=== PATIENT | female | born 1955 | race Caucasian/White ===

== ENCOUNTER 2020-05-28 12:14 | Outpatient (REF) | payer MEDICARE, SELFPAY ==
--- NOTE | 2020-05-28 12:46 | XR_ITS ---
EXAMINATION: XR SHOULDER, RIGHT CLINICAL INFORMATION: Right shoulder joint replacement COMPARISON: Previous x-ray August 2019 TECHNIQUE: Two views of the right shoulder. FINDINGS: There is a right shoulder replacement in satisfactory position. No acute fracture, dislocation or x-ray evidence of loosening is seen. Soft tissues are unremarkable. There are old right rib fractures. IMPRESSION: Satisfactory appearance of right shoulder replacement.
== END 2020-05-28 12:15 | disposition home or self-care (01) ==
LOC: HO.XRAY 12:14
PROVIDERS: PCP Internal Medicine; Referring Provider Internal Medicine; Visit Provider Orthopaedic Surgery
DX: Z96.611 Presence of right artificial shoulder joint; M54.16 Radiculopathy, lumbar region
CPT/HCPCS: 73030; 99213

== ENCOUNTER 2024-07-19 13:03 | Outpatient (AMB) | payer MEDICARE, SELFPAY ==
--- NOTE | 2024-07-19 13:10 | A.OFFVIS_ITS ---
Intake Visit Reasons: Left knee pain Intake Note: Rose is a 69 year old female who presents with complaints of intermittent left knee pain and giving way. The patient underwent bilateral total knee replacement surgeries approximately 10 years ago performed at [facility]. The patient states that several months ago she twisted her left knee. Since that time she has had intermittent symptoms of instability. She has been doing physical therapy exercises which seemed to aggravate her symptoms. She has tried Tylenol which gives her mild relief. She is not able to tolerate anti-inflammatory medicines because of renal disease. Allergies Iodinated Contrast Media [IV CONTRAST] Allergy (Severe, Verified 07/19/24 13:28) ANAPHYLAXIS sumatriptan [From IMITREX] Allergy (Severe, Verified 07/19/24 13:28) PT STATES CAUSED NM adhesive tape [ADHESIVE TAPE] Allergy (Intermediate, Verified 07/19/24 13:28) SKIN BLISTERS lisinopril [LISINOPRIL] Allergy (Mild, Verified 07/19/24 13:28) COUGH ciprofloxacin [CIPROFLOXACIN] Allergy (Unknown, Verified 07/19/24 13:28) RASH AND ITCHING 1st Relief [place] Allergy (Unknown, Uncoded 07/19/24 13:28) unknown Iodinated I 131 Albumin Allergy (Unknown, Uncoded 07/19/24 13:28) unknown Medication List - Last Reconciled 07/20/24 by Benny Boone MD albuterol sulfate 90 mcg/actuation 2 puffs inhalation Q4H PRN amoxicillin-pot clavulanate 875-125 mg 1 tab PO BID ascorbic acid (vitamin C) 1 g PO Q6H aspirin (Adult Low Dose Aspirin) 81 mg PO DAILY atorvastatin 20 mg PO DAILY blood sugar diagnostic ([employer] Verio test strips) As directed bupropion HCl 125 mg PO QAM calcitriol 0.25 mcg PO DAILY cholecalciferol (vitamin D3) 25 mcg PO DAILY furosemide 20 mg PO DAILY PRN gabapentin mg PO BID hydroxyzine HCl 25 mg PO TID PRN lancets ([employer] Delica Plus Lancet) As directed latanoprost 0.005% 1 drp ophthalmic (eye) BEDTIME levothyroxine mcg PO metoprolol succinate ER 50 mg PO DAILY nystatin topical QID PRN omeprazole 20 mg PO DAILY oxycodone 2.5 mg PO BID PRN trazodone 100 mg PO BEDTIME vibegron (Gem[place]a) 75 mg PO DAILY PFSH Medical History (Updated 07/15/24 @ 10:45 by Benny Boone MD) Lumbar radiculopathy Surgical History (Updated 05/27/20 @ 19:55 by Tushar Antony MD) Status post replacement of right shoulder joint Social History Alcohol intake: never Patient Tobacco Use Status: Never used Tobacco Current occupational status: employed and retired Physical Exam Const Other: Well-nourished well-developed very friendly female awake alert and oriented x3 in no acute distress Extrem Other: Bilateral lower extremity examination shows good capillary refill, no skin lesions noted, normal sensation light touch Left knee examination shows that the surgical incision is well healed, no erythema, full active extension and flexion to 115 degrees, no instability mild tenderness along her medial tibial plateau Results Reviewed Results Reviewed: X-rays of the patient's left knee show a total knee arthroplasty in good position with no obvious signs of loosening Assessment & Plan Assessment & Plan (1) Left knee pain: Code(s): M25.562 - Pain in left knee Category: Medical Plan Ms. Noyola presents with left knee pain and symptoms of instability possibly due to aseptic loosening of her left total knee arthroplasty. Thus, I will send the patient for a CT scan of her left knee for further evaluation. I will contact her by phone once the CT scan results are available. She will continue with her activity modifications in the meantime. Feel free to call me at any time should questions regarding her orthopedic management arise. I spent 21 minutes in reviewing the patient's records and imaging studies, seeing the patient and documenting in the medical record. Orders: Orders XR knee LT 3V 07/19/24 M25.562 - Pain in left knee CT knee LT wo IV con Today M25.562 - Pain in left knee Coding Level of Care Code Est Pt Level 3 (89659) Complex EM visit Add On G2211 Diagnoses Left knee pain M25.562
--- OUTSIDE RECORDS SUMMARY | 2024-07-20 21:22 | XMS_ITS ---
Author Name [facility] Organization Unknown History of Medication Use Medication Directions Dispensed Refills Start Date End Date [facility] albuterol sulfate HFA 90 mcg/actuation aerosol inhaler INHALE 2 PUFFS INTO THE LUNGS EVERY 4 HOURS NEEDED FOR COUGH FOR SHORTNESS OF BREATH OR WHEEZING 12/28/2022 active gabapentin 100 mg capsule TAKE ONE CAPSULE BY MOUTH AT BEDTIME 12/28/2022 active fluoxetine 10 mg capsule TAKE ONE CAPSULE BY MOUTH EVERY DAY 12/28/2022 active tolterodine ER 4 mg capsule,extended release 24 hr TAKE ONE CAPSULE BY MOUTH EVERY DAY 12/28/2022 active calcitriol 0.25 mcg capsule TAKE ONE CAPSULE BY MOUTH EVERY DAY 12/28/2022 active Senna Plus 8.6 mg-50 mg tablet TAKE TWO TABLETS BY MOUTH EVERY EVENING 12/28/2022 active diazepam 5 mg tablet TAKE ONE TABLET BY MOUTH TWICE A DAY 12/28/2022 active fluoxetine 20 mg capsule TAKE 1 CAPSULE BY MOUTH DAILY DIRECTED 12/28/2022 active oxycodone 5 mg tablet TAKE ONE TABLET BY MOUTH EVERY DAY NEEDED FOR SEVERE PAIN 12/28/2022 active hydroxyzine HCl 10 mg tablet TAKE ONE TABLET BY MOUTH TWICE A DAY NEEDED FOR ANXIETY 12/28/2022 active fluoxetine 20 mg capsule TAKE 1 CAPSULE BY MOUTH DAILY DIRECTED 12/28/2022 active atorvastatin 20 mg tablet TAKE ONE TABLET BY MOUTH EVERY DAY 12/28/2022 active hydromorphone 2 mg tablet TAKE 1 TABLET BY MOUTH EVERY 4 HOURS NEEDED 12/28/2022 active levothyroxine 75 mcg tablet TAKE ONE TABLET BY MOUTH EVERY DAY 12/28/2022 active enoxaparin 40 mg/0.4 mL subcutaneous syringe INJECT 40MG 0.4ML) SUBCUTANEOUSLY ONCE DAILY UNTIL INR IS 2 OR GREATER DIRECTED. 12/28/2022 active Jantoven 1 mg tablet TAKE 5 TABLETS BY MOUTH AT DINNER DAILY UNLESS OTHERWISE INSTRUCTED BY PHYSICIAN'S OFFICE. 12/28/2022 active Action [employer] Ultra Test strips USE TO CHECK BLOOD SUGAR ONCE DAILY 12/28/2022 active Vitamin D3 25 mcg (1,000 unit) capsule TAKE TWO CAPSULES BY MOUTH EVERY DAY 12/28/2022 active methocarbamol 750 mg tablet TAKE ONE TABLET BY MOUTH EVERY 6 HOURS NEEDED FOR MUSCLE SPASMS. 12/28/2022 active nitrofurantoin monohydrate/macrocry stals 100 mg capsule TAKE 1 CAPSULE BY MOUTH TWICE DAILY 12/28/2022 active latanoprost 0.005 % eye drops INSTILL 1 DROP INTO EACH EYE AT BEDTIME. 12/28/2022 active Nyamyc 100,000 unit/gram topical powder APPLY ON RASH FOUR TIMES A DAY FOR 1 WEEK NEEDED. 12/28/2022 active metoprolol succinate ER 50 mg tablet,extended release 24 hr TAKE ONE TABLET BY MOUTH EVERY DAY 12/28/2022 active amoxicillin 875 mg-potassium clavulanate 125 mg tablet TAKE 1 TABLET BY MOUTH TWICE DAILY FOR 7 DAYS 12/28/2022 active hydroxyzine pamoate 25 mg capsule TAKE ONE CAPSULE BY MOUTH THREE TIMES DAILY NEEDED FOR ANXIETY 12/28/2022 active omeprazole 20 mg capsule,delayed release TAKE ONE CAPSULE BY MOUTH EVERY DAY 12/28/2022 active tolterodine ER 2 mg capsule,extended release 24 hr 12/28/2022 active cefpodoxime 100 mg tablet TAKE ONE TABLET BY MOUTH TWICE A DAY FOR 10 DAYS 12/28/2022 active Problems Problem Status Onset Date Problem Type Date of Resoluti on Source Pain of left knee joint active 2022-12-26 ProblemAct [facility]
--- OUTSIDE RECORDS SUMMARY | 2024-07-20 21:23 | XMS_ITS | Clinical Summary ---
Author Organization Unknown Care Team Providers Care Course Instructor Name Role Phone JÚNIOR OLEA, HEMANT Unavailable Unavailable ABBI RN, CARLEY Unavailable Unavailable SHARMIN PT, VJ Unavailable Unavailable SPAALEX OT, SALAZAR Unavailable Unavailable Payers Payer Name Policy Type Policy Number Effective Date Expira tion Date [facility] [email or web address] [id number] Problems Condition Name Condition Details Condition Category Status Onset Date Resolution Date Last Treatment Date Treating Clinician Comments AFTERCARE FOLLOWING JOINT REPLACEMENT SURGERY Active 2021-08 00:00: 00 PRESENCE OF LEFT ARTIFICIAL KNEE JOINT Active 2021-08 00:00: 00 URINARY TRACT INFECTION, SITE NOT SPECIFIED Active 2021-08 00:00: 00 CHRONIC PAIN SYNDROME Active 08-10 00:00: 00 ESSENTIAL (PRIMARY) HYPERTENSION Active 2021-08 00:00: 00 ATHSCL HEART DISEASE OF [place] CORONARY ARTERY W/O ANG PCTRS Active 08-10 00:00: 00 TAKOTSUBO SYNDROME Active 08-10 00:00: 00 HYPOMAGNESEM IA Active 08-10 00:00: 00 HYPOTHYROIDI SM, UNSPECIFIED Active 08-10 00:00: 00 RETENTION OF URINE, UNSPECIFIED Active 08-10 00:00: 00 DEPRESSION, UNSPECIFIED Active 08-10 00:00: 00 ANXIETY DISORDER, UNSPECIFIED Active 08-10 00:00: 00 HYPERLIPIDEM IA, UNSPECIFIED Active 08-10 00:00: 00 ANEMIA, UNSPECIFIED Active 08-10 00:00: 00 PRESENCE OF RIGHT ARTIFICIAL HIP JOINT Active 08-10 00:00: 00 MORBID (SEVERE) OBESITY DUE TO EXCESS CALORIES Active 08-10 00:00: 00 BODY MASS INDEX [BMI]40.0-44 .9, ADULT Active 08-10 00:00: 00 PRESENCE OF RIGHT ARTIFICIAL SHOULDER JOINT Active 08-10 00:00: 00 PRESENCE OF RIGHT ARTIFICIAL KNEE JOINT Active 02-22 00:00: 00 Allergies, Adverse Reactions, Alerts Allergy Name Allergy Type Status Severity Reaction(s) Onset Date Inactive Date Treating Clinician Comments NSAIDS Propensity to adverse reactions Active 2021-08 09:02: 16 IODINE AND IODIDE CONTAINING PRODUC Propensity to adverse reactions Active 2021-08 09:02: 26 A SULFAMETHOXA ZOLE Propensity to adverse reactions Active 2021-08 09:02: 41 TRIMETHOPRIM Propensity to adverse reactions Active 2021-08 09:02: 51 CIPROFLAXICI N Propensity to adverse reactions Active 2021-08 09:03: 01 ADHESIVE TAPE Propensity to adverse reactions Active 2021-08 09:03: 09 LISINOPRIL Propensity to adverse reactions Active 2021-08 09:03: 19 SUMATRIPTAN Propensity to adverse reactions Active 2021-08 09:03: 38 Medications Ordered Medication Name Filled Medication Name Start Date Stop Date Current Medication? Ordering Clinician Indication Dosage Frequency Signature (SIG) Comments Components cefpodoxime 100 mg tablet 2021-08 00:00: 00 06-20 23:59 :00 No [id number] UTI 1 tablet 2 TIMES DAILY 1 tablet 2 TIMES DAILY (route: oral) Med Classific ation: Anti-Infe ctive Agents enoxaparin 40 mg/0.4 mL subcutaneou s syringe 2021-08 00:00: 00 06-23 23:59 :00 No [id number] PROPHYLACTI C DVT PREVENTION 40 mg DAILY 40 mg DAILY (route: subcutaneo us) Med Classific ation: Hematolog ical Agents Jantoven 1 mg tablet 2021-08 00:00: 00 06-19 23:59 :00 No [id number] DVT PROPHYLAXIS 5 tablet DAILY 5 tablet DAILY (route: oral) Med Classific ation: Hematolog ical Agents oxycodone 5 mg tablet 2021-08 00:00: 00 Yes [id number] PAIN 7-10 1-2 tablet EVERY 6 HOURS 1-2 tablet EVERY 6 HOURS (route: oral) Med Classific ation: Analgesic , Anti-infl ammatory or Antipyret ic calcitriol 0.25 mcg capsule 2021-08 00:00: 00 Yes [id number] SUPPLEMENT 1 capsule DAILY 1 capsule DAILY (route: oral) Med Classific ation: Electroly te Balance-N utritiona l Products omeprazole 20 mg capsule,del ayed release 2021-08 00:00: 00 Yes [id number] GERD 1 capsule DAILY 1 capsule DAILY (route: oral) Med Classific ation: Gastroint estinal Therapy Agents hydroxyzine pamoate 25 mg capsule 2021-08 00:00: 00 Yes [id number] ANXIETY 1 capsule 3 TIMES DAILY 1 capsule 3 TIMES DAILY (route: oral) Med Classific ation: Central Nervous System Agents fluoxetine 10 mg capsule 2021-08 017 00:00: 00 Yes [id number] DEPRESSION 1 capsule DAILY 1 capsule DAILY (route: oral) Med Classific ation: Central Nervous System Agents fluoxetine 20 mg capsule 2021-0812 00:00: 00 Yes [id number] DEPESSION 1 capsule DAILY 1 capsule DAILY (route: oral) Med Classific ation: Central Nervous System Agents metoprolol succinate ER 50 mg tablet,exte nded release 24 hr 2021-08 00:00: 00 Yes [id number] HTN 1 tablet DAILY 1 tablet DAILY (route: oral) Med Classific ation: Cardiovas cular Therapy Agents Nyamyc 100,000 unit/gram topical powder 2021-08 0 00:00: 00 06-12 00:00 :00 No [id number] Per instruc tions ON RASH FOUR TIMES A DAY FOR 1 WEEK NEEDED Per instructio ns ON RASH FOUR TIMES A DAY FOR 1 WEEK NEEDED (route: topical) Med Classific ation: Dermatolo gical OneTouch Ultra Test strips 2021-08 0-05 00:00: 00 06-12 00:00 :00 No [id number] Per instruc tions TO CHECK BLOOD SUGAR ONCE DAILY Per instructio ns TO CHECK BLOOD SUGAR ONCE DAILY (route: miscellane ous) Med Classific ation: Medical Supplies and Durable Medical Equipment (DME) Acetaminoph en Extra Strength 500 mg tablet 2021-08 00:00: 00 Yes [id number] PAIN 2 tablet 3 TIMES DAILY 2 tablet 3 TIMES DAILY (route: oral) Med Classific ation: Analgesic , Anti-infl ammatory or Antipyret ic aspirin 81 mg tablet,karel yed release 2021-08 00:00: 00 Yes [id number] HEART HEALTH 1 tablet DAILY 1 tablet DAILY (route: oral) Med Classific ation: Hematolog ical Agents atorvastati n 20 mg tablet 2021-08 00:00: 00 Yes [id number] CHOLESTEROL 1 tablet BEDTIME 1 tablet BEDTIME (route: oral) Med Classific ation: Cardiovas cular Therapy Agents biotin 5 mg tablet 2021-08 00:00: 00 Yes [id number] SUPPLEMENT 1 tablet DAILY 1 tablet DAILY (route: oral) Med Classific ation: Electroly te Balance-N utritiona l Products diazepam 5 mg tablet 2021-08 00:00: 00 Yes [id number] ANXIETY 1 tablet 2 TIMES DAILY 1 tablet 2 TIMES DAILY (route: oral) Med Classific ation: Central Nervous System Agents levothyroxi ne 75 mcg tablet 2021-08 00:00: 00 Yes [id number] HYPOTHYROID ISM 1 tablet DAILY 1 tablet DAILY (route: oral) Med Classific ation: Endocrine magnesium 400 mg (as magnesium oxide) tablet 2021-08 00:00: 00 Yes [id number] LOW MAGNESIUM 1 tablet 2 TIMES DAILY 1 tablet 2 TIMES DAILY (route: oral) Med Classific ation: Electroly te Balance-N utritiona l Products methocarbam ol 750 mg tablet 2021-08 00:00: 00 Yes [id number] SPASMS 1 tablet EVERY 6 HOURS 1 tablet EVERY 6 HOURS (route: oral) Med Classific ation: Locomotor System Multiple Vitamins tablet 2021-08 00:00: 00 Yes [id number] SUPPLEMENT 1 tablet DAILY 1 tablet DAILY (route: oral) Med Classific ation: Electroly te Balance-N utritiona l Products Senna Plus 8.6 mg-50 mg capsule 2021-08 00:00: 00 Yes [id number] PREVENT CONSTIPATIO N 2 capsule BEDTIME 2 capsule BEDTIME (route: oral) Med Classific ation: Gastroint estinal Therapy Agents Vitamin C 1,000 mg tablet 2021-08 00:00: 00 Yes [id number] SUPPLEMENT 1 tablet DAILY 1 tablet DAILY (route: oral) Med Classific ation: Electroly te Balance-N utritiona l Products Vitamin D3 50 mcg (2,000 unit) tablet 2021-08 00:00: 00 Yes [id number] DEFICIENCY 2 tablet DAILY 2 tablet DAILY (route: oral) Med Classific ation: Electroly te Balance-N utritiona l Products Xalatan 0.005 % eye drops 2021-08 00:00: 00 Yes [id number] GLAUCOMA 1 drops BEDTIME 1 drops BEDTIME (route: ophthalmic (eye)) Med Classific ation: Ophthalmi c Agents zinc 50 mg tablet 2021-08 00:00: 00 Yes [id number] SUPPLEMENT 1 tablet BEDTIME 1 tablet BEDTIME (route: oral) Med Classific ation: Electroly te Balance-N utritiona l Products warfarin 1 mg tablet 2021-08 00:00: 00 06-30 23:59 :00 No [id number] BLOOD THINNER 3 tablet DAILY 3 tablet DAILY (route: oral) Alternate Route: BY MOUTH. Med Classific ation: Hematolog ical Agents Lovenox 40 mg/0.4 mL subcutaneou s syringe 2021-08 00:00: 00 06-16 23:59 :00 No [id number] DVT PROPHULACT 40 mg DAILY 40 mg DAILY (route: subcutaneo us) Med Classific ation: Hematolog ical Agents Jantoven 1 mg tablet 2021-08 00:00: 00 Yes [id number] ANTICOAGULA TION 6 mg DAILY 6 mg DAILY (route: oral) Med Classific ation: Hematolog ical Agents warfarin 1 mg tablet 2021-08 00:00: 00 Yes [id number] blood thinner 4 tablet DAILY 4 tablet DAILY (route: oral) Med Classific ation: Hematolog ical Agents LEVOTHYROXI NE ORAL 02-19 00:00: 00 06-06 07:03 :00 No 100 mcg1 TABLET DAILY 100 mcg1 TABLET DAILY (route: ) Alternate Route: BY MOUTH. Med Classific ation: ENDOCRINE LEVOTHYROXI NE ORAL 02-19 00:00: 00 06-06 07:03 :00 No 100 mcg1 TABLET DAILY 100 mcg1 TABLET DAILY (route: ) Alternate Route: BY MOUTH. Med Classific ation: ENDOCRINE LEVOTHYROXI NE ORAL 02-22 00:00: 00 06-06 07:03 :00 No 88 mcg1 TABLET DAILY 88 mcg1 TABLET DAILY (route: ) Alternate Route: BY MOUTH. Med Classific ation: ENDOCRINE FLUOXETINE ORAL 2018-08 00:00: 00 06-06 07:01 :00 No 20 mg2 CAPSULE S EVERYDAY DIRECTED 20 mg2 CAPSULES EVERYDAY DIRECTED (route: ) Alternate Route: BY MOUTH. Med Classific ation: CENTRAL NERVOUS SYSTEM AGENTS OMEPRAZOLE ORAL 02-22 00:00: 00 06-06 07:03 :00 No 40 mg1 CAPSULE DAILY 40 mg1 CAPSULE DAILY (route: ) Alternate Route: BY MOUTH. Med Classific ation: GASTROINT ESTINAL THERAPY AGENTS PNEUMOVAX-2 3 INJECTION 04-08 00:00: 00 04-09 00:00 :00 No 25 mcg/0.5 mL 25 mcg/0.5 mL (route: ) Alternate Route: VACCINATI ON ADMINISTE RED BY . Med Classific ation: BIOLOGICA LS PNEUMOVAX-2 3 INJECTION 04-08 00:00: 00 04-09 00:00 :00 No 25 mcg/0.5 mL 25 mcg/0.5 mL (route: ) Alternate Route: VACCINATI ON ADMINISTE RED BY . Med Classific ation: BIOLOGICA LS DIAZEPAM ORAL 2018-08 00:00: 00 06-06 07:00 :00 No 5 mg1 TABLET TWO TIMES A DAY 5 mg1 TABLET TWO TIMES A DAY (route: ) Alternate Route: BY MOUTH. Med Classific ation: CENTRAL NERVOUS SYSTEM AGENTS HYDROXYZINE PAMOATE ORAL 2018-08 0-15 00:00: 00 06-06 07:02 :00 No 50 mg1 CAPSULE THREE TIMES A DAY NEEDED 50 mg1 CAPSULE THREE TIMES A DAY NEEDED (route: ) Alternate Route: BY MOUTH. Med Classific ation: CENTRAL NERVOUS SYSTEM AGENTS PROPRANOLOL ORAL 8-01 00:00: 00 06-06 07:04 :00 No 80 mg 80 mg (route: ) Med Classific ation: CARDIOVAS CULAR THERAPY AGENTS NYSTOPICAL TOPICAL 16 00:00: 00 03-19 00:00 :00 No 100,000 unit/gr amA SMALL AMOUNT 2 TO 3 TIMES DAILY 100,000 unit/gramA SMALL AMOUNT 2 TO 3 TIMES DAILY (route: ) Alternate Route: AFFECTED AREA . Med Classific ation: DERMATOLO GICAL NYSTOPICAL TOPICAL 02-22 00:00: 00 03-19 00:00 :00 No 100,000 unit/gr amA SMALL AMOUNT 2 TO 3 TIMES DAILY 100,000 unit/gramA SMALL AMOUNT 2 TO 3 TIMES DAILY (route: ) Alternate Route: AFFECTED AREA . Med Classific ation: DERMATOLO GICAL LATANOPROST OPHTHALMIC (EYE) 7-03 00:00: 00 06-06 07:02 :00 No 0.005 %1 DROP HS DIRECTED 0.005 %1 DROP HS DIRECTED (route: ) Alternate Route: IN BOTH EYES. Med Classific ation: OPHTHALMI C AGENTS LATANOPROST OPHTHALMIC (EYE) 2018-08 0-03 00:00: 00 06-06 07:02 :00 No 0.005 %1 DROP HS DIRECTED 0.005 %1 DROP HS DIRECTED (route: ) Alternate Route: IN BOTH EYES. Med Classific ation: OPHTHALMI C AGENTS LATANOPROST OPHTHALMIC (EYE) 7-03 00:00: 00 06-06 07:02 :00 No 0.005 %1 DROP HS DIRECTED 0.005 %1 DROP HS DIRECTED (route: ) Alternate Route: IN BOTH EYES. Med Classific ation: OPHTHALMI C AGENTS FREESTYLE LANCETS 2018-08 0-18 00:00: 00 06-06 07:01 :00 No 28 gauge DAILY DIRECTED 28 gauge DAILY DIRECTED (route: ) Med Classific ation: MEDICAL SUPPLIES AND DURABLE MEDICAL EQUIPMENT (DME) ONE TOUCH IN VITRO 2018-08 0-15 00:00: 00 06-06 07:04 :00 No DAILY DIRECTED DAILY DIRECTED (route: ) NITROFURANT OIN MONOHYDRATE /MACROCRYST ALS ORAL 8-05 00:00: 00 03-21 00:00 :00 No 100 mg1 CAPSULE TWO TIMES A DAY FOR 7 DAYS 100 mg1 CAPSULE TWO TIMES A DAY FOR 7 DAYS (route: ) Alternate Route: BY MOUTH . Med Classific ation: ANTI-INFE CTIVE AGENTS NITROFURANT OIN MONOHYDRATE /MACROCRYST ALS ORAL 805 00:00: 00 03-21 00:00 :00 No 100 mg1 CAPSULE TWO TIMES A DAY FOR 7 DAYS 100 mg1 CAPSULE TWO TIMES A DAY FOR 7 DAYS (route: ) Alternate Route: BY MOUTH . Med Classific ation: ANTI-INFE CTIVE AGENTS FREESTYLE FREEDOM 716 00:00: 00 03-24 00:00 :00 No DAILY DIRECTED DAILY DIRECTED (route: ) Med Classific ation: MEDICAL SUPPLIES AND DURABLE MEDICAL EQUIPMENT (DME) FREESTYLE FREEDOM 16 00:00: 00 03-24 00:00 :00 No DAILY DIRECTED DAILY DIRECTED (route: ) Med Classific ation: MEDICAL SUPPLIES AND DURABLE MEDICAL EQUIPMENT (DME) ONETOUCH VERIO METER 02-28 00:00: 00 03-30 00:00 :00 No DIRECTED DIRECTED (route: ) Med Classific ation: MEDICAL SUPPLIES AND DURABLE MEDICAL EQUIPMENT (DME) ONETOUCH VERIO METER 02-28 00:00: 00 03-30 00:00 :00 No DIRECTED DIRECTED (route: ) Med Classific ation: MEDICAL SUPPLIES AND DURABLE MEDICAL EQUIPMENT (DME) FLUAD (65 YR UP)(PF) INTRAMUSCUL AR 30 00:00: 00 04-09 00:00 :00 No 45 mcg (15 mcg x 3)/0.5 mL 45 mcg (15 mcg x 3)/0.5 mL (route: ) Alternate Route: VACCINATI ON ADMINISTE RED BY . Med Classific ation: CHOLO MURGUIA FLUAD (65 YR UP)(PF) INTRAMUSCUL AR 04-08 00:00: 00 04-09 00:00 :00 No 45 mcg (15 mcg x 3)/0.5 mL 45 mcg (15 mcg x 3)/0.5 mL (route: ) Alternate Route: VACCINATI ON ADMINISTE RED BY . Med Classific ation: CHOLO MURGUIA Vital Signs Vital Name Observation Time Observation Value Commen ts Temperature 2022-07-09 09:36:00.000 98.2 [degF] Temperature 2022-07-07 09:37:00.000 97.8 [degF] Temperature 2022-07-02 09:38:00.000 97.2 [degF] Temperature 2022-06-30 12:54:00.000 97.9 [degF] Temperature 2022-06-30 11:21:00.000 97.7 [degF] Temperature 2022-06-26 09:35:00.000 97.3 [degF] Temperature 2022-06-23 10:40:00.000 97.1 [degF] Temperature 2022-06-19 14:54:00.000 97 [degF] Temperature 2022-06-19 10:45:00.000 97.5 [degF] Temperature 2022-06-16 10:53:00.000 97.6 [degF] Temperature 2022-06-13 15:24:00.000 97.6 [degF] Temperature 2022-06-12 09:40:00.000 98.2 [degF] BMI (%) 2022-06-12 09:40:00.000 40 kg/m2 Height 2022-06-12 09:40:00.000 60 [in_us] Pulse 2022-07-09 09:36:00.000 72 /min Pulse 2022-07-07 09:37:00.000 64 /min Pulse 2022-07-02 09:38:00.000 76 /min Pulse 2022-06-30 12:54:00.000 82 /min Pulse 2022-06-30 11:21:00.000 68 /min Pulse 2022-06-26 09:35:00.000 91 /min Pulse 2022-06-23 10:40:00.000 75 /min Pulse 2022-06-19 14:54:00.000 69 /min Pulse 2022-06-19 10:45:00.000 74 /min Pulse 2022-06-16 10:53:00.000 81 /min Pulse 2022-06-13 15:24:00.000 88 /min Pulse 2022-06-12 09:40:00.000 73 /min O2 Saturation (%) 2022-07-02 09:38:00.000 98 % O2 Saturation (%) 2022-06-30 11:21:00.000 98 % O2 Saturation (%) 2022-06-26 09:35:00.000 98 % O2 Saturation (%) 2022-06-23 10:40:00.000 98 % O2 Saturation (%) 2022-06-19 15:50:00.000 98 % O2 Saturation (%) 2022-06-19 10:45:00.000 96 % O2 Saturation (%) 2022-06-12 09:43:00.000 95 % Respirations 2022-07-09 09:36:00.000 16 /min Respirations 2022-07-07 09:37:00.000 18 /min Respirations 2022-07-02 09:38:00.000 18 /min Respirations 2022-06-30 12:54:00.000 18 /min Respirations 2022-06-30 11:21:00.000 18 /min Respirations 2022-06-26 09:35:00.000 18 /min Respirations 2022-06-23 10:40:00.000 18 /min Respirations 2022-06-19 14:54:00.000 18 /min Respirations 2022-06-19 10:45:00.000 18 /min Respirations 2022-06-16 10:53:00.000 16 /min Respirations 2022-06-13 15:24:00.000 18 /min Respirations 2022-06-12 09:40:00.000 16 /min Weight (lbs) 2022-06-12 09:40:00.000 206 [lb_av] Systolic Blood Pressure 2022-07-09 09:36:00.000 110 mm [Hg] Systolic Blood Pressure 2022-07-07 09:37:00.000 122 mm [Hg] Systolic Blood Pressure 2022-07-02 09:38:00.000 120 mm [Hg] Systolic Blood Pressure 2022-06-30 12:54:00.000 124 mm [Hg] Systolic Blood Pressure 2022-06-30 11:21:00.000 128 mm [Hg] Systolic Blood Pressure 2022-06-26 09:35:00.000 122 mm [Hg] Systolic Blood Pressure 2022-06-23 10:40:00.000 132 mm [Hg] Systolic Blood Pressure 2022-06-19 10:45:00.000 120 mm [Hg] Systolic Blood Pressure 2022-06-16 10:53:00.000 124 mm [Hg] Systolic Blood Pressure 2022-06-13 15:24:00.000 122 mm [Hg] Systolic Blood Pressure 2022-06-12 09:40:00.000 118 mm [Hg] Diastolic Blood Pressure 2022-07-09 09:36:00.000 72 mm [Hg] Diastolic Blood Pressure 2022-07-07 09:37:00.000 68 mm [Hg] Diastolic Blood Pressure 2022-07-02 09:38:00.000 60 mm [Hg] Diastolic Blood Pressure 2022-06-30 12:54:00.000 66 mm [Hg] Diastolic Blood Pressure 2022-06-30 11:21:00.000 70 mm [Hg] Diastolic Blood Pressure 2022-06-26 09:35:00.000 80 mm [Hg] Diastolic Blood Pressure 2022-06-23 10:40:00.000 76 mm [Hg] Diastolic Blood Pressure 2022-06-19 10:45:00.000 64 mm [Hg] Diastolic Blood Pressure 2022-06-16 10:53:00.000 64 mm [Hg] Diastolic Blood Pressure 2022-06-13 15:24:00.000 76 mm [Hg] Diastolic Blood Pressure 2022-06-12 09:40:00.000 74 mm [Hg] Plan of Treatment Planned Activity Planned Date Details Comments Future Scheduled Test PHYSICAL T HERAPIST TO EVALUATE FOR STRENGTHENING [code = PHYSICAL THERAPIST TO EVALUATE FOR STRENGTHENING ] Future Scheduled Test OCCUPATION AL THERAPIST TO EVALUATE FOR BR SAFETY [code = OCCUPATIONAL THERAPIST TO EVALUATE FOR BR SAFETY] Future Scheduled Test MEDICATION MANAGEMENT; SKILLED NURSE TO REVIEW MEDICATIONS FOR INTERACTIONS, EFFECTIVENESS OF DRUG THERAPY, AND SIGNS/SYMPTOMS OF ADVERSE REACTIONS. MAY INSTRUCT AND REINFORCE MEDICATION TEACHING RELATED TO THE USE OF MEDICATIONS, DOSAGE, FREQUENCY, PURPOSE, SIDE EFFECTS, AND TO REPORT COMPLICATIONS. [code = MEDICATION MANAGEMENT; SKILLED NURSE TO REVIEW MEDICATIONS FOR INTERACTIONS, EFFECTIVENESS OF DRUG THERAPY, AND SIGNS/SYMPTOMS OF ADVERSE REACTIONS. MAY INSTRUCT AND REINFORCE MEDICATION TEACHING RELATED TO THE USE OF MEDICATIONS, DOSAGE, FREQUENCY, PURPOSE, SIDE EFFECTS, AND TO REPORT COMPLICATIONS.] Future Scheduled Test ANTICOAGUL ATION MANAGEMENT; SKILLED NURSE TO ASSESS, TEACH, AND MONITOR EFFECTIVENESS OF ANTICOAGULATION THERAPY. SKILLED NURSE TO INSTRUCT ON SIGNS AND SYMPTOMS OF BLEEDING/ADVERSE REACTIONS TO REPORT TO PHYSICIAN. [code = ANTICOAGULATION MANAGEMENT; SKILLED NURSE TO ASSESS, TEACH, AND MONITOR EFFECTIVENESS OF ANTICOAGULATION THERAPY. SKILLED NURSE TO INSTRUCT ON SIGNS AND SYMPTOMS OF BLEEDING/ADVERSE REACTIONS TO REPORT TO PHYSICIAN. ] Future Scheduled Test FALL REDUC TION MANAGEMENT; NURSING TO PROVIDE SKILLED ASSESSMENT, EDUCATION, AND INTERVENTION TO IDENTIFY FALL RISK FACTORS SUCH MEDICATIONS THAT MAY CAUSE DIZZINESS, CHRONIC DISEASES, PSYCHOLOGICAL FACTORS, AND EMPOWER/EDUCATE PATIENT/CAREGIVER TO MINIMIZE FALL RISK. [code = FALL REDUCTION MANAGEMENT; NURSING TO PROVIDE SKILLED ASSESSMENT, EDUCATION, AND INTERVENTION TO IDENTIFY FALL RISK FACTORS SUCH MEDICATIONS THAT MAY CAUSE DIZZINESS, CHRONIC DISEASES, PSYCHOLOGICAL FACTORS, AND EMPOWER/EDUCATE PATIENT/CAREGIVER TO MINIMIZE FALL RISK.] Future Scheduled Test GENITOURIN ZUNILDA MANAGEMENT; SKILLED NURSE TO ASSESS AND TEACH RELATED TO ALTERED GENITOURINARY STATUS TO MINIMIZE COMPLICATIONS AND REDUCE HOSPITALIZATION. [code = GENITOURINARY MANAGEMENT; SKILLED NURSE TO ASSESS AND TEACH RELATED TO ALTERED GENITOURINARY STATUS TO MINIMIZE COMPLICATIONS AND REDUCE HOSPITALIZATION.] Future Scheduled Test URINARY TR ACT INFECTION MANAGEMENT; SKILLED NURSE TO PROVIDE SKILLED TEACHING AND SELF- CARE MANAGEMENT RELATED TO UTI TO MINIMIZE COMPLICATIONS AND REDUCE THE RISK OF HOSPITALIZATION. [code = URINARY TRACT INFECTION MANAGEMENT; SKILLED NURSE TO PROVIDE SKILLED TEACHING AND SELF- CARE MANAGEMENT RELATED TO UTI TO MINIMIZE COMPLICATIONS AND REDUCE THE RISK OF HOSPITALIZATION.] Future Scheduled Test SKILLED NU RSE TO ASSESS, EVALUATE, AND DEVELOP AN INDIVIDUALIZED PLAN OF CARE. AGENCY MAY ACCEPT ORDERS FROM CONSULTING PHYSICIANS RUARK TO OBSERVE/ASSESS RISK FOR FALLS AND INSTRUCT IN FALL PREVENTION, HOME SAFETY, MEDICATION MANAGEMENT, INFECTION PREVENTION, AND NUTRITION MANAGEMENT. SN MAY PERFORM O2 SATURATION LEVEL ON ADMISSION AND PRN TO ASSESS PATIENT, WITH NOTIFICATION TO THE PHYSICIAN IF SATURATION IS 90% IN THE ABSENCE OF MORE SPECIFIC PARAMETERS FROM THE PHYSICIAN. AGENCY MAY PERFORM A RESUMPTION OF CARE VISIT FOLLOWING ANY HOSPITAL ADMISSION. SKILLED NURSE TO ASSESS/EVALUATE CO-MORBID CONDITIONS AND ANY NEW CONDITIONS THAT PRESENT THEMSELVES DURING THIS EPISODE TO IDENTIFY CHANGES AND INTERVENE TO MINIMIZE COMPLICATIONS. [code = SKILLED NURSE TO ASSESS, EVALUATE, AND DEVELOP AN INDIVIDUALIZED PLAN OF CARE. AGENCY MAY ACCEPT ORDERS FROM CONSULTING PHYSICIANS RUARK SN TO OBSERVE/ASSESS RISK FOR FALLS AND INSTRUCT IN FALL PREVENTION, HOME SAFETY, MEDICATION MANAGEMENT, INFECTION PREVENTION, AND NUTRITION MANAGEMENT. SN MAY PERFORM O2 SATURATION LEVEL ON ADMISSION AND PRN TO ASSESS PATIENT, WITH NOTIFICATION TO THE PHYSICIAN IF SATURATION IS 90% IN THE ABSENCE OF MORE SPECIFIC PARAMETERS FROM THE PHYSICIAN. AGENCY MAY PERFORM A RESUMPTION OF CARE VISIT FOLLOWING ANY HOSPITAL ADMISSION. SKILLED NURSE TO ASSESS/EVALUATE CO-MORBID CONDITIONS AND ANY NEW CONDITIONS THAT PRESENT THEMSELVES DURING THIS EPISODE TO IDENTIFY CHANGES AND INTERVENE TO MINIMIZE COMPLICATIONS.] Future Scheduled Test PT/INR Thu; SKILLED NURSE TO PERFORM PT/INR VIA VENIPUNCTURE OR COAGUCHECK EVERY THURSDAY AND THURSDAY UNTIL INR 2.0. TTHEN CALL ORTHO OFFICE FOR FURTHER ORDERS [code = PT/INR MONITORING; SKILLED NURSE TO PERFORM PT/INR VIA VENIPUNCTURE OR COAGUCHECK EVERY THURSDAY AND THURSDAY UNTIL INR 2.0. TTHEN CALL ORTHO OFFICE FOR FURTHER ORDERS] Future Scheduled Test PAIN MANAG EMENT; SKILLED NURSE TO OBSERVE, ASSESS, AND PROVIDE EDUCATION ON PAIN MANAGEMENT TECHNIQUES. [code = PAIN MANAGEMENT; SKILLED NURSE TO OBSERVE, ASSESS, AND PROVIDE EDUCATION ON PAIN MANAGEMENT TECHNIQUES.] Future Scheduled Test PT WITH NO N OBSERVABLE INCISION. WILL BE REMOVED AT SURGEON OFFICE 06/24 [code = PT WITH NON OBSERVABLE INCISION. WILL BE REMOVED AT SURGEON OFFICE 06/24] Future Scheduled Test CARDIOVASC ULAR SYSTEM; SKILLED NURSE TO ASSESS AND TEACH RELATED TO ALTERED CARDIOVASCULAR STATUS TO MINIMIZE COMPLICATIONS AND REDUCE HOSPITALIZATION. [code = CARDIOVASCULAR SYSTEM; SKILLED NURSE TO ASSESS AND TEACH RELATED TO ALTERED CARDIOVASCULAR STATUS TO MINIMIZE COMPLICATIONS AND REDUCE HOSPITALIZATION.] Future Scheduled Test HYPERTENSI ON MANAGEMENT; SKILLED NURSE TO ASSESS/TEACH WARNING SIGNS AND SYMPTOMS TO AVOID HOSPITALIZATION. [code = HYPERTENSION MANAGEMENT; SKILLED NURSE TO ASSESS/TEACH WARNING SIGNS AND SYMPTOMS TO AVOID HOSPITALIZATION.] Future Scheduled Test SKIN INTEG RITY - SN OBSERVE AND ASSESS INTEGUMENTARY STATUS TO IDENTIFY CHANGES AND INTERVENE TO MINIMIZE COMPLICATIONS. PROVIDE SKILLED TEACHING OF GENERAL WOUND AND SKIN CARE AND PREVENTION RELATED TO POTENTIAL FOR OR ACTUAL ALTERED SKIN INTEGRITY [code = SKIN INTEGRITY - SN OBSERVE AND ASSESS INTEGUMENTARY STATUS TO IDENTIFY CHANGES AND INTERVENE TO MINIMIZE COMPLICATIONS. PROVIDE SKILLED TEACHING OF GENERAL WOUND AND SKIN CARE AND PREVENTION RELATED TO POTENTIAL FOR OR ACTUAL ALTERED SKIN INTEGRITY ] Future Scheduled Test AGENCY MAY PERFORM A RESUMPTION OF CARE VISIT FOLLOWING ANY HOSPITAL ADMISSION. PHYSICAL THERAPY TO EVALUATE, ASSESS AND MONITOR, PROVIDE SKILLED THERAPEUTIC INTERVENTION, ACTIVITY, EDUCATION, AND TRAINING TO ADDRESS: TRANSFER TRAINING (PT) GAIT TRAINING (PT) THERAPEUTIC EXERCISES (PT) STAIR TRAINING (PT) OXYGEN SATURATION (PT). NOTIFY MD IF 02SATS BELOW 90% AFTER 10 MIN OF REST. PAIN MANAGEMENT (PT) ORTHOPEDIC SURGICAL AFTERCARE (PT) MAY TEACH PATIENT APPLICATION OF CRYOTHERAPY FOR PAIN AND/OR SWELLING UP TO 20 MIN AT A TIME OVER INCISION/JOINT KNEE REPLACEMENT SELF-MANAGEMENT (PT) IDENTIFY FALL RISK FACTORS AND ESTABLISH HOME EXERCISE PROGRAM TO MINIMIZE FALL RISK. MAY TEACH THE PATIENT FLOOR RECOVERY WHEN CLINICALLY APPROPRIATE (PT) [code = AGENCY MAY PERFORM A RESUMPTION OF CARE VISIT FOLLOWING ANY HOSPITAL ADMISSION. PHYSICAL THERAPY TO EVALUATE, ASSESS AND MONITOR, PROVIDE SKILLED THERAPEUTIC INTERVENTION, ACTIVITY, EDUCATION, AND TRAINING TO ADDRESS: TRANSFER TRAINING (PT) GAIT TRAINING (PT) THERAPEUTIC EXERCISES (PT) STAIR TRAINING (PT) OXYGEN SATURATION (PT). NOTIFY MD IF 02SATS BELOW 90% AFTER 10 MIN OF REST. PAIN MANAGEMENT (PT) ORTHOPEDIC SURGICAL AFTERCARE (PT) MAY TEACH PATIENT APPLICATION OF CRYOTHERAPY FOR PAIN AND/OR SWELLING UP TO 20 MIN AT A TIME OVER INCISION/JOINT KNEE REPLACEMENT SELF-MANAGEMENT (PT) IDENTIFY FALL RISK FACTORS AND ESTABLISH HOME EXERCISE PROGRAM TO MINIMIZE FALL RISK. MAY TEACH THE PATIENT FLOOR RECOVERY WHEN CLINICALLY APPROPRIATE (PT)] Goal 2022-07-09 Patient Goal - T O WLAK WITHOUT PAIN OR WALKER Goal Provider Goal - Goal Provider Goal - Goal Provider Goal - PATIENT/CAREGIVER TO VERBALIZE, AND CONSISTENTLY DEMONSTRATE EFFECTIVE, SAFE MANAGEMENT OF MEDICATION INCLUDING KNOWLEDGE OF EFFECTIVENESS, POTENTIAL SIDE EFFECTS AND DRUG REACTIONS AND WHEN TO CONTACT THE APPROPRIATE CARE PROVIDER. PATIENT/CAREGIVER WILL BE ABLE TO VERBALIZE UNDERSTANDING OF MEDICATION REGIMEN AND ACCURATELY TAKE MEDICATIONS PRESCRIBED WITHOUT ADVERSE EFFECTS BY EOE Goal Provider Goal - INEFFECTIVE ANTICOAGULATION THERAPY WILL BE IDENTIFIED AND PROMPTLY REPORTED TO THE PHYSICIAN. PATIENT / CAREGIVER WILL VERBALIZE UNDERSTANDING OF MEASURES TO MAINTAIN EFFECTIVE ANTICOAGULATION THERAPY Goal Provider Goal - PATIENT/CAREGIVER ABLE TO IDENTIFY FALL RISK FACTORS AND IMPLEMENT STRATEGIES TO MINIMIZE FALL RISK. PATIENT/CAREGIVER WILL VERBALIZE/DEMONSTRATE AN ABILITY TO ADHERE TO FALL REDUCTION SELF MANAGEMENT AND LIFE-STYLE CHANGES AT DISCHARGE. PERSONAL GOAL(S) STATED BY PATIENT/CAREGIVER WILL BE MET BY EOE Goal Provider Goal - PATIENT / CAREGIVER WILL VERBALIZE/DEMONSTRATE UNDERSTANDING OF MEASURES TO MANAGE ALTERED GENITOURINARY STATUS BY END OF EPISODE. Goal Provider Goal - PATIENT/CAREGIVER WILL VERBALIZE/DEMONSTRATE UNDERSTANDING OF CARE AND MANAGEMENT OF URINARY TRACT INFECTION BY EOE Goal Provider Goal - A PLAN OF CARE WILL BE ESTABLISHED THAT MEETS THE PATIENTS NEEDS. PATIENT WILL DEMONSTRATE OXYGEN SATURATION WITHIN NORMAL LIMITS OR PATIENTS OPTIMAL LEVEL ESTABLISHED BY THE PHYSICIAN THROUGHOUT CARE. CHANGES TO CO-MORBID CONDITIONS AND ANY NEW CONDITIONS WILL BE IDENTIFIED AND REPORTED TO THE PHYSICIAN. Goal Provider Goal - PATIENT PT/INR WILL BE MAINTAINED AT A THERAPEUTIC LEVEL( 2-3)IDENTIFIED BY THE PHYSICIAN THROUGHOUT CARE. Goal Provider Goal - PATIENT / CAREGIVER WILL VERBALIZE / DEMONSTRATE UNDERSTANDING OF PAIN CONTROL MEASURES BY EOE Goal Provider Goal - PATIENT / CAREGIVER WILL VERBALIZE / DEMONSTRATE ABILITY TO PERFORM WOUND CARE. WOUND STATUS WILL IMPROVE EVIDENCED BY A DECREASE IN SIZE, DRAINAGE, ABSENCE OF INFECTION, AND DECREASED PAIN BY EOE Goal Provider Goal - PATIENT / CAREGIVER WILL VERBALIZE/DEMONSTRATE UNDERSTANDING OF MEASURES TO MANAGE ALTERED CARDIOVASCULAR STATUS BY EOE. Goal Provider Goal - PATIENT / CAREGIVER WILL VERBALIZE/DEMONSTRATE AN ABILITY TO ADHERE TO SELF-MANAGEMENT OF HTN TO MINIMIZE COMPLICATIONS AND AVOID HOSPITALIZATION BY END OF EPISODE. Goal Provider Goal - CHANGES IN SKIN INTEGRITY STATUS WILL BE IDENTIFIED AND REPORTED TO THE PHYSICIAN FOR PROMPT INTERVENTION. PATIENT / CAREGIVER WILL VERBALIZE/DEMONSTRATE ADEQUATE KNOWLEDGE OF INTEGUMENTARY STATUS AND APPROPRIATE MEASURES TO PROMOTE SKIN INTEGRITY AND PREVENT INJURY BY EOE Goal Provider Goal - PT STG: PATIENT WILL DEMONSTRATE IMPROVED TRANSFERS FROM SBA TO INDEPENDENT WITH UE ASSIST WITHIN 3 WEEKS PT STG: PATIENT WILL DEMONSTRATE FULLY UPRIGHT POSTURE, ADEQUATE STEP LENGTH, FOOT CLEARANCE AND CONSISTENT HEEL STRIKE BILATERALLY TO IMPROVE GAIT PATTERN WITHIN 3 WEEKS PT LTG: PATIENT WILL DEMONSTRATE IMPROVED AMBULATION FROM CGA TO INDEPENDENT WITH USE OF SILVER AND FURNITURE FOR SUPPORT WITHIN 5 WEEKS PT STG: PATIENT WILL DEMONSTRATE INDEPENDENCE WITH LOWER EXTREMITY HOME EXERCISE PROGRAM WITHIN 4 WEEKS PT LTG: PATIENT WILL DEMONSTRATE INCREASED STRENGTH OF LEFT LE FROM 2+/5 TO 4/5 WITHIN 5 WEEKS IN ORDER TO IMPROVE SAFETY AND STABILITY WITH GAIT AND STAIRS PT LTG: PATIENT WILL DEMONSTRATE INCREASED ROM OF LEFT KNEE FROM -6-75 DEGREES TO 0-120 DEGREES WITHIN 5 WEEKS IN ORDER TO IMPROVE TECHNIQUE WITH TRANSFERS, GAIT AND STAIR MOBILITY PT STG: PATIENT WILL DEMONSTRATE PROPER PACING AND SEQUENCING WITH STAIR MOBILITY WITHIN 3 WEEKS PT LTG: PATIENT WILL DEMONSTRATE IMPROVED ABILITY TO SAFELY NEGOTIATE STAIRS FROM MIN ASSIST TO INDEPENDENT WITH RAIL WITHIN 5 WEEKS PATIENT WILL MAINTAIN OXYGEN SATURATION WITHIN PHYSICIAN ORDERED PARAMETERS THROUGHOUT EPISODE OF CARE PT GOAL: PATIENT/CAREGIVER WILL VERBALIZE UNDERSTANDING OF PAIN MANAGEMENT BY DISCHARGE. PATIENT WILL DEMONSTRATE NORMAL HEALING FOLLOWING SURGERY WITH NO COMPLICATIONS BY DISCHARGE. PT GOAL: PATIENT WILL DEMONSTRATE OPTIMAL OUTCOMES, INCLUDING INCREASED ROM AND STRENGTH FOLLOWING TKA BY DISCHARGE. PATIENT/CAREGIVER WILL DEMONSTRATE ADHERENCE TO FALL REDUCTION SELF MANAGEMENT TO MINIMIZE FALL RISK BY DISCHARGE. Reason for Visit INDEPENDENT IN THE HOME Encounters Start Date/Time End Date/Time Encounter Type Admission Type Attending [facility] Care Department Encounter ID Discharge Date Discharge Status Discharge Condition Discharge Reason Percent Goals Met 2022-06-12 00:00:00 2022-07-09 00:00:00 Outpatient CARLEY BENITEZ [facility] [id number] 2022-07-09 00:00:00 DISCHARGE TO HOME OR SELF CARE INDEPENDEN T IN THE HOME HH ONLY - PER CLIENT REQUEST 87.88
== END 2024-07-19 13:41 | disposition home or self-care (01) ==
PROVIDERS: PCP Internal Medicine; Visit Provider Orthopaedic Surgery
DX: M25.562 Pain in left knee (principal)
CPT/HCPCS: 99213; G2211

== ENCOUNTER 2024-07-19 15:57 | Outpatient (REF) | payer MEDICARE, SELFPAY ==
--- NOTE | ~2024-07-19 | XR_ITS ---
EXAMINATION: XR LEFT KNEE CLINICAL INFORMATION: Pain in left knee M25.562. COMPARISON: None available TECHNIQUE: Three views of the left knee. FINDINGS: Total knee arthroplasty with usual position and alignment. Intact hardware. No evidence of acute periprosthetic fracture. No suspicious perihardware lucency is identified. No significant effusion. Vascular calcification. XR/XR knee LT 3V IMPRESSION: Status post total knee arthroplasty. No radiographic evidence to suggest hardware failure. Correlate with prior imaging. Further evaluation with bone scan as clinically indicated, if there is concern for a radiographically occult process. Study is assigned/presented to me for interpretation on Aug 25, 2024 Electronically signed by: Dominic Jaramillo MD 08/25/2024 02:09 PM [facility] DUKES
--- OUTSIDE RECORDS SUMMARY | 2024-07-21 03:07 | XMS_ITS | Clinical Summary ---
Author Organization Unknown Care Team Providers Care Vibration Technician Name Role Phone JÚNIOR OLEA, HEMANT Unavailable Unavailable ABBI RN, CARLEY Unavailable Unavailable SHARMIN PT, VJ Unavailable Unavailable SPAALEX OT, SALAZAR Unavailable Unavailable Payers Payer Name Policy Type Policy Number Effective Date Expira tion Date [facility].CYasminAUTH [id number] Problems Condition Name Condition Details Condition Category [...] 2021-08 00:00: 00 ATHSCL HEART DISEASE OF [place] CORONARY ARTERY W/O ANG PCTRS Active 08-10 [...] 2021-08 00:00: 00 06-20 23:59 :00 No [id number] UTI 1 tablet 2 TIMES DAILY 1 tablet 2 TIMES DAILY (route: oral) Med Classific ation: Anti-Infe ctive Agents enoxaparin 40 mg/0.4 mL subcutaneou s syringe 2021-08 00:00: 00 06-23 23:59 :00 No [id number] PROPHYLACTI C DVT PREVENTION 40 mg DAILY 40 mg DAILY (route: subcutaneo us) Med Classific ation: Hematolog ical Agents Jantoven 1 mg tablet 2021-08 00:00: 00 06-19 23:59 :00 No [id number] DVT PROPHYLAXIS 5 tablet DAILY 5 tablet DAILY (route: oral) Med Classific ation: Hematolog ical Agents oxycodone 5 mg tablet 2021-08 00:00: 00 Yes [id number] PAIN 7-10 1-2 tablet EVERY 6 HOURS 1-2 tablet EVERY 6 HOURS (route: oral) Med Classific ation: Analgesic , Anti-infl ammatory or Antipyret ic calcitriol 0.25 mcg capsule 2021-08 00:00: 00 Yes [id number] SUPPLEMENT 1 capsule DAILY 1 capsule DAILY (route: oral) Med Classific ation: Electroly te Balance-N utritiona l Products omeprazole 20 mg capsule,del ayed release 2021-08 00:00: 00 Yes [id number] GERD 1 capsule DAILY 1 capsule DAILY (route: oral) Med Classific ation: Gastroint estinal Therapy Agents hydroxyzine pamoate 25 mg capsule 2021-08 00:00: 00 Yes [id number] ANXIETY 1 capsule 3 TIMES DAILY 1 capsule 3 TIMES DAILY (route: oral) Med Classific ation: Central Nervous System Agents fluoxetine 10 mg capsule 2021-08 017 00:00: 00 Yes [id number] DEPRESSION 1 capsule DAILY 1 capsule DAILY (route: oral) Med Classific ation: Central Nervous System Agents fluoxetine 20 mg capsule 2021-0812 00:00: 00 Yes [id number] DEPESSION 1 capsule DAILY 1 capsule DAILY (route: oral) Med Classific ation: Central Nervous System Agents metoprolol succinate ER 50 mg tablet,exte nded release 24 hr 2021-08 00:00: 00 Yes [id number] HTN 1 tablet DAILY 1 tablet DAILY (route: oral) Med Classific ation: Cardiovas cular Therapy Agents Nyamyc 100,000 unit/gram topical powder 2021-08 0 00:00: 00 06-12 00:00 :00 No [id number] Per instruc tions ON RASH FOUR TIMES A DAY FOR 1 WEEK NEEDED Per instructio ns ON RASH FOUR TIMES A DAY FOR 1 WEEK NEEDED (route: topical) Med Classific ation: Dermatolo gical OneTouch Ultra Test strips 2021-08 0-05 00:00: 00 06-12 00:00 :00 No [id number] Per instruc tions TO CHECK BLOOD SUGAR ONCE DAILY Per instructio ns TO CHECK BLOOD SUGAR ONCE DAILY (route: miscellane ous) Med Classific ation: Medical Supplies and Durable Medical Equipment (DME) Acetaminoph en Extra Strength 500 mg tablet 2021-08 00:00: 00 Yes [id number] PAIN 2 tablet 3 TIMES DAILY 2 tablet 3 TIMES DAILY (route: oral) Med Classific ation: Analgesic , Anti-infl ammatory or Antipyret ic aspirin 81 mg tablet,karel yed release 2021-08 00:00: 00 Yes [id number] HEART HEALTH 1 tablet DAILY 1 tablet DAILY (route: oral) Med Classific ation: Hematolog ical Agents atorvastati n 20 mg tablet 2021-08 00:00: 00 Yes [id number] CHOLESTEROL 1 tablet BEDTIME 1 tablet BEDTIME (route: oral) Med Classific ation: Cardiovas cular Therapy Agents biotin 5 mg tablet 2021-08 00:00: 00 Yes [id number] SUPPLEMENT 1 tablet DAILY 1 tablet DAILY (route: oral) Med Classific ation: Electroly te Balance-N utritiona l Products diazepam 5 mg tablet 2021-08 00:00: 00 Yes [id number] ANXIETY 1 tablet 2 TIMES DAILY 1 tablet 2 TIMES DAILY (route: oral) Med Classific ation: Central Nervous System Agents levothyroxi ne 75 mcg tablet 2021-08 00:00: 00 Yes [id number] HYPOTHYROID ISM 1 tablet DAILY 1 tablet DAILY (route: oral) Med Classific ation: Endocrine magnesium 400 mg (as magnesium oxide) tablet 2021-08 00:00: 00 Yes [id number] LOW MAGNESIUM 1 tablet 2 TIMES DAILY 1 tablet 2 TIMES DAILY (route: oral) Med Classific ation: Electroly te Balance-N utritiona l Products methocarbam ol 750 mg tablet 2021-08 00:00: 00 Yes [id number] SPASMS 1 tablet EVERY 6 HOURS 1 tablet EVERY 6 HOURS (route: oral) Med Classific ation: Locomotor System Multiple Vitamins tablet 2021-08 00:00: 00 Yes [id number] SUPPLEMENT 1 tablet DAILY 1 tablet DAILY (route: oral) Med Classific ation: Electroly te Balance-N utritiona l Products Senna Plus 8.6 mg-50 mg capsule 2021-08 00:00: 00 Yes [id number] PREVENT CONSTIPATIO N 2 capsule BEDTIME 2 capsule BEDTIME (route: oral) Med Classific ation: Gastroint estinal Therapy Agents Vitamin C 1,000 mg tablet 2021-08 00:00: 00 Yes [id number] SUPPLEMENT 1 tablet DAILY 1 tablet DAILY (route: oral) Med Classific ation: Electroly te Balance-N utritiona l Products Vitamin D3 50 mcg (2,000 unit) tablet 2021-08 00:00: 00 Yes [id number] DEFICIENCY 2 tablet DAILY 2 tablet DAILY (route: oral) Med Classific ation: Electroly te Balance-N utritiona l Products Xalatan 0.005 % eye drops 2021-08 00:00: 00 Yes [id number] GLAUCOMA 1 drops BEDTIME 1 drops BEDTIME (route: ophthalmic (eye)) Med Classific ation: Ophthalmi c Agents zinc 50 mg tablet 2021-08 00:00: 00 Yes [id number] SUPPLEMENT 1 tablet BEDTIME 1 tablet BEDTIME (route: oral) Med Classific ation: Electroly te Balance-N utritiona l Products warfarin 1 mg tablet 2021-08 00:00: 00 06-30 23:59 :00 No [id number] BLOOD THINNER 3 tablet DAILY 3 tablet DAILY (route: oral) Alternate Route: BY MOUTH. Med Classific ation: Hematolog ical Agents Lovenox 40 mg/0.4 mL subcutaneou s syringe 2021-08 00:00: 00 06-16 23:59 :00 No [id number] DVT PROPHULACT 40 mg DAILY 40 mg DAILY (route: subcutaneo us) Med Classific ation: Hematolog ical Agents Jantoven 1 mg tablet 2021-08 00:00: 00 Yes [id number] ANTICOAGULA TION 6 mg DAILY 6 mg DAILY (route: oral) Med Classific ation: Hematolog ical Agents warfarin 1 mg tablet 2021-08 00:00: 00 Yes [id number] blood thinner 4 tablet DAILY 4 tablet [...] Classific ation: DERMATOLO GICAL LATANOPROST OPHTHALMIC (EYE) 7- 00:00: 00 06-06 07:02 :00 No 0.005 [...] ) NITROFURANT OIN MONOHYDRATE /MACROCRYST ALS ORAL 805 [...] Classific ation: ANTI-INFE CTIVE AGENTS FREESTYLE FREEDOM 16 00:00: 00 03-24 00:00 [...] AGENCY MAY ACCEPT ORDERS FROM CONSULTING PHYSICIANS RUONEIL TO OBSERVE/ASSESS RISK FOR FALLS AND INSTRUCT [...] End Date/Time Encounter Type Admission Type Attending [facility] Care Department Encounter ID Discharge Date Discharge Status Discharge Condition Discharge Reason Percent Goals Met 2022-06-12 00:00:00 2022-07-09 00:00:00 Outpatient CARLEY BENITEZ [facility] [id number] 2022-07-09 00:00:00 DISCHARGE TO HOME OR SELF CARE INDEPENDEN T IN THE HOME HH ONLY - PER CLIENT REQUEST 87.88
--- OUTSIDE RECORDS SUMMARY | 2024-07-21 03:07 | XMS_ITS | Clinical Summary ---
Author Organization Unknown Care Team Providers Care Senior Field Engineer Name Role Phone JÚNIOR OLEA, HEMANT Unavailable Unavailable ABBI RN, CARLEY Unavailable Unavailable SHARMIN PT, VJ Unavailable Unavailable SPAALEX OT, SALAZAR Unavailable Unavailable Payers Payer Name Policy Type Policy Number Effective Date Expira tion Date [facility].CYasminAUTH [id number] Problems Condition Name Condition Details Condition Category [...] 2021-08 00:00: 00 ATHSCL HEART DISEASE OF [place] CORONARY ARTERY W/O ANG PCTRS Active 08-10 [...] 2021-08 00:00: 00 06-20 23:59 :00 No [id number] UTI 1 tablet 2 TIMES DAILY 1 tablet 2 TIMES DAILY (route: oral) Med Classific ation: Anti-Infe ctive Agents enoxaparin 40 mg/0.4 mL subcutaneou s syringe 2021-08 00:00: 00 06-23 23:59 :00 No [id number] PROPHYLACTI C DVT PREVENTION 40 mg DAILY 40 mg DAILY (route: subcutaneo us) Med Classific ation: Hematolog ical Agents Jantoven 1 mg tablet 2021-08 00:00: 00 06-19 23:59 :00 No [id number] DVT PROPHYLAXIS 5 tablet DAILY 5 tablet DAILY (route: oral) Med Classific ation: Hematolog ical Agents oxycodone 5 mg tablet 2021-08 00:00: 00 Yes [id number] PAIN 7-10 1-2 tablet EVERY 6 HOURS 1-2 tablet EVERY 6 HOURS (route: oral) Med Classific ation: Analgesic , Anti-infl ammatory or Antipyret ic calcitriol 0.25 mcg capsule 2021-08 00:00: 00 Yes [id number] SUPPLEMENT 1 capsule DAILY 1 capsule DAILY (route: oral) Med Classific ation: Electroly te Balance-N utritiona l Products omeprazole 20 mg capsule,del ayed release 2021-08 00:00: 00 Yes [id number] GERD 1 capsule DAILY 1 capsule DAILY (route: oral) Med Classific ation: Gastroint estinal Therapy Agents hydroxyzine pamoate 25 mg capsule 2021-08 00:00: 00 Yes [id number] ANXIETY 1 capsule 3 TIMES DAILY 1 capsule 3 TIMES DAILY (route: oral) Med Classific ation: Central Nervous System Agents fluoxetine 10 mg capsule 2021-08 017 00:00: 00 Yes [id number] DEPRESSION 1 capsule DAILY 1 capsule DAILY (route: oral) Med Classific ation: Central Nervous System Agents fluoxetine 20 mg capsule 2021-0812 00:00: 00 Yes [id number] DEPESSION 1 capsule DAILY 1 capsule DAILY (route: oral) Med Classific ation: Central Nervous System Agents metoprolol succinate ER 50 mg tablet,exte nded release 24 hr 2021-08 00:00: 00 Yes [id number] HTN 1 tablet DAILY 1 tablet DAILY (route: oral) Med Classific ation: Cardiovas cular Therapy Agents Nyamyc 100,000 unit/gram topical powder 2021-08 0 00:00: 00 06-12 00:00 :00 No [id number] Per instruc tions ON RASH FOUR TIMES A DAY FOR 1 WEEK NEEDED Per instructio ns ON RASH FOUR TIMES A DAY FOR 1 WEEK NEEDED (route: topical) Med Classific ation: Dermatolo gical OneTouch Ultra Test strips 2021-08 0-05 00:00: 00 06-12 00:00 :00 No [id number] Per instruc tions TO CHECK BLOOD SUGAR ONCE DAILY Per instructio ns TO CHECK BLOOD SUGAR ONCE DAILY (route: miscellane ous) Med Classific ation: Medical Supplies and Durable Medical Equipment (DME) Acetaminoph en Extra Strength 500 mg tablet 2021-08 00:00: 00 Yes [id number] PAIN 2 tablet 3 TIMES DAILY 2 tablet 3 TIMES DAILY (route: oral) Med Classific ation: Analgesic , Anti-infl ammatory or Antipyret ic aspirin 81 mg tablet,karel yed release 2021-08 00:00: 00 Yes [id number] HEART HEALTH 1 tablet DAILY 1 tablet DAILY (route: oral) Med Classific ation: Hematolog ical Agents atorvastati n 20 mg tablet 2021-08 00:00: 00 Yes [id number] CHOLESTEROL 1 tablet BEDTIME 1 tablet BEDTIME (route: oral) Med Classific ation: Cardiovas cular Therapy Agents biotin 5 mg tablet 2021-08 00:00: 00 Yes [id number] SUPPLEMENT 1 tablet DAILY 1 tablet DAILY (route: oral) Med Classific ation: Electroly te Balance-N utritiona l Products diazepam 5 mg tablet 2021-08 00:00: 00 Yes [id number] ANXIETY 1 tablet 2 TIMES DAILY 1 tablet 2 TIMES DAILY (route: oral) Med Classific ation: Central Nervous System Agents levothyroxi ne 75 mcg tablet 2021-08 00:00: 00 Yes [id number] HYPOTHYROID ISM 1 tablet DAILY 1 tablet DAILY (route: oral) Med Classific ation: Endocrine magnesium 400 mg (as magnesium oxide) tablet 2021-08 00:00: 00 Yes [id number] LOW MAGNESIUM 1 tablet 2 TIMES DAILY 1 tablet 2 TIMES DAILY (route: oral) Med Classific ation: Electroly te Balance-N utritiona l Products methocarbam ol 750 mg tablet 2021-08 00:00: 00 Yes [id number] SPASMS 1 tablet EVERY 6 HOURS 1 tablet EVERY 6 HOURS (route: oral) Med Classific ation: Locomotor System Multiple Vitamins tablet 2021-08 00:00: 00 Yes [id number] SUPPLEMENT 1 tablet DAILY 1 tablet DAILY (route: oral) Med Classific ation: Electroly te Balance-N utritiona l Products Senna Plus 8.6 mg-50 mg capsule 2021-08 00:00: 00 Yes [id number] PREVENT CONSTIPATIO N 2 capsule BEDTIME 2 capsule BEDTIME (route: oral) Med Classific ation: Gastroint estinal Therapy Agents Vitamin C 1,000 mg tablet 2021-08 00:00: 00 Yes [id number] SUPPLEMENT 1 tablet DAILY 1 tablet DAILY (route: oral) Med Classific ation: Electroly te Balance-N utritiona l Products Vitamin D3 50 mcg (2,000 unit) tablet 2021-08 00:00: 00 Yes [id number] DEFICIENCY 2 tablet DAILY 2 tablet DAILY (route: oral) Med Classific ation: Electroly te Balance-N utritiona l Products Xalatan 0.005 % eye drops 2021-08 00:00: 00 Yes [id number] GLAUCOMA 1 drops BEDTIME 1 drops BEDTIME (route: ophthalmic (eye)) Med Classific ation: Ophthalmi c Agents zinc 50 mg tablet 2021-08 00:00: 00 Yes [id number] SUPPLEMENT 1 tablet BEDTIME 1 tablet BEDTIME (route: oral) Med Classific ation: Electroly te Balance-N utritiona l Products warfarin 1 mg tablet 2021-08 00:00: 00 06-30 23:59 :00 No [id number] BLOOD THINNER 3 tablet DAILY 3 tablet DAILY (route: oral) Alternate Route: BY MOUTH. Med Classific ation: Hematolog ical Agents Lovenox 40 mg/0.4 mL subcutaneou s syringe 2021-08 00:00: 00 06-16 23:59 :00 No [id number] DVT PROPHULACT 40 mg DAILY 40 mg DAILY (route: subcutaneo us) Med Classific ation: Hematolog ical Agents Jantoven 1 mg tablet 2021-08 00:00: 00 Yes [id number] ANTICOAGULA TION 6 mg DAILY 6 mg DAILY (route: oral) Med Classific ation: Hematolog ical Agents warfarin 1 mg tablet 2021-08 00:00: 00 Yes [id number] blood thinner 4 tablet DAILY 4 tablet [...] End Date/Time Encounter Type Admission Type Attending [facility] Care Department Encounter ID Discharge Date Discharge Status Discharge Condition Discharge Reason Percent Goals Met 2022-06-12 00:00:00 2022-07-09 00:00:00 Outpatient CARLEY BENITEZ [facility] [id number] 2022-07-09 00:00:00 DISCHARGE TO HOME OR SELF CARE INDEPENDEN T IN THE HOME HH ONLY - PER CLIENT REQUEST 87.88
== END 2024-07-19 15:58 | disposition home or self-care (01) ==
LOC: HO.HOSX 15:57
PROVIDERS: Visit Provider Orthopaedic Surgery
DX: M25.562 Pain in left knee (principal)
CPT/HCPCS: 73562; 99212

== ENCOUNTER 2024-08-17 07:36 | Outpatient (REF) | payer MEDICARE, SELFPAY ==
--- NOTE | ~2024-08-17 | CT_ITS ---
EXAMINATION: CT KNEE WITHOUT IV CONTRAST LEFT HISTORY: M25.562 - Pain in left knee. TECHNIQUE: Serial 2 mm helically acquired images were obtained through the left knee per standard departmental protocol. Coronal and sagittal reformats were also obtained and evaluated. One or more of the following techniques was used for dose reduction: Automated exposure control, adjustment of the mA and/or kV according to patient size, use of iterative reconstruction technique. DLP: 108 mGy-cm COMPARISON: Correlation is made with plain films of the left knee dated 07/19/2024. FINDINGS: The patient is status post total knee arthroplasty. There is a large amount of streak artifact from the metallic prosthesis. Evaluation for loosening is limited. There is a minimally displaced oblique fracture of the superolateral aspect of the patella. No additional fracture is seen. There is a moderate suprapatellar joint effusion. CT/CT knee LT wo IV con IMPRESSION: 1. Status post left total knee arthroplasty. Evaluation for loosening is limited by streak artifact from the metallic prosthesis. 2. Minimally displaced fracture of the patella. 3. Moderate suprapatellar joint effusion. Electronically signed by: Peter Vang MD 08/22/2024 07:44 AM EST
--- OUTSIDE RECORDS SUMMARY | 2024-08-17 07:40 | XMS_ITS | Clinical Summary ---
Author Organization Unknown Care Team Providers Care Performance Makeup Artist Name Role Phone JÚNIOR OLEA, HEMANT Unavailable Unavailable ABBI RN, CARLEY Unavailable Unavailable SHARMIN PT, VJ Unavailable Unavailable SPAALEX OT, SALAZAR Unavailable Unavailable Payers Payer Name Policy Type Policy Number Effective Date Expira tion Date [facility].CYasminAUTH [id number] Problems Condition Name Condition Details Condition Category [...] 2021-08 00:00: 00 ATHSCL HEART DISEASE OF [place] CORONARY ARTERY W/O ANG PCTRS Active 08-10 [...] 2021-08 00:00: 00 06-20 23:59 :00 No [id number] UTI 1 tablet 2 TIMES DAILY 1 tablet 2 TIMES DAILY (route: oral) Med Classific ation: Anti-Infe ctive Agents enoxaparin 40 mg/0.4 mL subcutaneou s syringe 2021-08 00:00: 00 06-23 23:59 :00 No [id number] PROPHYLACTI C DVT PREVENTION 40 mg DAILY 40 mg DAILY (route: subcutaneo us) Med Classific ation: Hematolog ical Agents Jantoven 1 mg tablet 2021-08 00:00: 00 06-19 23:59 :00 No [id number] DVT PROPHYLAXIS 5 tablet DAILY 5 tablet DAILY (route: oral) Med Classific ation: Hematolog ical Agents oxycodone 5 mg tablet 2021-08 00:00: 00 Yes [id number] PAIN 7-10 1-2 tablet EVERY 6 HOURS 1-2 tablet EVERY 6 HOURS (route: oral) Med Classific ation: Analgesic , Anti-infl ammatory or Antipyret ic calcitriol 0.25 mcg capsule 2021-08 00:00: 00 Yes [id number] SUPPLEMENT 1 capsule DAILY 1 capsule DAILY (route: oral) Med Classific ation: Electroly te Balance-N utritiona l Products omeprazole 20 mg capsule,del ayed release 2021-08 00:00: 00 Yes [id number] GERD 1 capsule DAILY 1 capsule DAILY (route: oral) Med Classific ation: Gastroint estinal Therapy Agents hydroxyzine pamoate 25 mg capsule 2021-08 00:00: 00 Yes [id number] ANXIETY 1 capsule 3 TIMES DAILY 1 capsule 3 TIMES DAILY (route: oral) Med Classific ation: Central Nervous System Agents fluoxetine 10 mg capsule 2021-08 017 00:00: 00 Yes [id number] DEPRESSION 1 capsule DAILY 1 capsule DAILY (route: oral) Med Classific ation: Central Nervous System Agents fluoxetine 20 mg capsule 2021-0812 00:00: 00 Yes [id number] DEPESSION 1 capsule DAILY 1 capsule DAILY (route: oral) Med Classific ation: Central Nervous System Agents metoprolol succinate ER 50 mg tablet,exte nded release 24 hr 2021-08 00:00: 00 Yes [id number] HTN 1 tablet DAILY 1 tablet DAILY (route: oral) Med Classific ation: Cardiovas cular Therapy Agents Nyamyc 100,000 unit/gram topical powder 2021-08 0 00:00: 00 06-12 00:00 :00 No [id number] Per instruc tions ON RASH FOUR TIMES A DAY FOR 1 WEEK NEEDED Per instructio ns ON RASH FOUR TIMES A DAY FOR 1 WEEK NEEDED (route: topical) Med Classific ation: Dermatolo gical OneTouch Ultra Test strips 2021-08 0-05 00:00: 00 06-12 00:00 :00 No [id number] Per instruc tions TO CHECK BLOOD SUGAR ONCE DAILY Per instructio ns TO CHECK BLOOD SUGAR ONCE DAILY (route: miscellane ous) Med Classific ation: Medical Supplies and Durable Medical Equipment (DME) Acetaminoph en Extra Strength 500 mg tablet 2021-08 00:00: 00 Yes [id number] PAIN 2 tablet 3 TIMES DAILY 2 tablet 3 TIMES DAILY (route: oral) Med Classific ation: Analgesic , Anti-infl ammatory or Antipyret ic aspirin 81 mg tablet,karel yed release 2021-08 00:00: 00 Yes [id number] HEART HEALTH 1 tablet DAILY 1 tablet DAILY (route: oral) Med Classific ation: Hematolog ical Agents atorvastati n 20 mg tablet 2021-08 00:00: 00 Yes [id number] CHOLESTEROL 1 tablet BEDTIME 1 tablet BEDTIME (route: oral) Med Classific ation: Cardiovas cular Therapy Agents biotin 5 mg tablet 2021-08 00:00: 00 Yes [id number] SUPPLEMENT 1 tablet DAILY 1 tablet DAILY (route: oral) Med Classific ation: Electroly te Balance-N utritiona l Products diazepam 5 mg tablet 2021-08 00:00: 00 Yes [id number] ANXIETY 1 tablet 2 TIMES DAILY 1 tablet 2 TIMES DAILY (route: oral) Med Classific ation: Central Nervous System Agents levothyroxi ne 75 mcg tablet 2021-08 00:00: 00 Yes [id number] HYPOTHYROID ISM 1 tablet DAILY 1 tablet DAILY (route: oral) Med Classific ation: Endocrine magnesium 400 mg (as magnesium oxide) tablet 2021-08 00:00: 00 Yes [id number] LOW MAGNESIUM 1 tablet 2 TIMES DAILY 1 tablet 2 TIMES DAILY (route: oral) Med Classific ation: Electroly te Balance-N utritiona l Products methocarbam ol 750 mg tablet 2021-08 00:00: 00 Yes [id number] SPASMS 1 tablet EVERY 6 HOURS 1 tablet EVERY 6 HOURS (route: oral) Med Classific ation: Locomotor System Multiple Vitamins tablet 2021-08 00:00: 00 Yes [id number] SUPPLEMENT 1 tablet DAILY 1 tablet DAILY (route: oral) Med Classific ation: Electroly te Balance-N utritiona l Products Senna Plus 8.6 mg-50 mg capsule 2021-08 00:00: 00 Yes [id number] PREVENT CONSTIPATIO N 2 capsule BEDTIME 2 capsule BEDTIME (route: oral) Med Classific ation: Gastroint estinal Therapy Agents Vitamin C 1,000 mg tablet 2021-08 00:00: 00 Yes [id number] SUPPLEMENT 1 tablet DAILY 1 tablet DAILY (route: oral) Med Classific ation: Electroly te Balance-N utritiona l Products Vitamin D3 50 mcg (2,000 unit) tablet 2021-08 00:00: 00 Yes [id number] DEFICIENCY 2 tablet DAILY 2 tablet DAILY (route: oral) Med Classific ation: Electroly te Balance-N utritiona l Products Xalatan 0.005 % eye drops 2021-08 00:00: 00 Yes [id number] GLAUCOMA 1 drops BEDTIME 1 drops BEDTIME (route: ophthalmic (eye)) Med Classific ation: Ophthalmi c Agents zinc 50 mg tablet 2021-08 00:00: 00 Yes [id number] SUPPLEMENT 1 tablet BEDTIME 1 tablet BEDTIME (route: oral) Med Classific ation: Electroly te Balance-N utritiona l Products warfarin 1 mg tablet 2021-08 00:00: 00 06-30 23:59 :00 No [id number] BLOOD THINNER 3 tablet DAILY 3 tablet DAILY (route: oral) Alternate Route: BY MOUTH. Med Classific ation: Hematolog ical Agents Lovenox 40 mg/0.4 mL subcutaneou s syringe 2021-08 00:00: 00 06-16 23:59 :00 No [id number] DVT PROPHULACT 40 mg DAILY 40 mg DAILY (route: subcutaneo us) Med Classific ation: Hematolog ical Agents Jantoven 1 mg tablet 2021-08 00:00: 00 Yes [id number] ANTICOAGULA TION 6 mg DAILY 6 mg DAILY (route: oral) Med Classific ation: Hematolog ical Agents warfarin 1 mg tablet 2021-08 00:00: 00 Yes [id number] blood thinner 4 tablet DAILY 4 tablet [...] End Date/Time Encounter Type Admission Type Attending [facility] Care Department Encounter ID Discharge Date Discharge Status Discharge Condition Discharge Reason Percent Goals Met 2022-06-12 00:00:00 2022-07-09 00:00:00 Outpatient CARLEY BENITEZ [facility] [id number] 2022-07-09 00:00:00 DISCHARGE TO HOME OR SELF CARE INDEPENDEN T IN THE HOME HH ONLY - PER CLIENT REQUEST 87.88
--- OUTSIDE RECORDS SUMMARY | 2024-08-17 07:40 | XMS_ITS | Clinical Summary ---
Author Organization Unknown Care Team Providers Care Consulting Business Developer Name Role Phone JÚNIOR OLEA, HEMANT Unavailable Unavailable ABBI RN, CARLEY Unavailable Unavailable SHARMIN PT, VJ Unavailable Unavailable SPAALEX OT, SALAZAR Unavailable Unavailable Payers Payer Name Policy Type Policy Number Effective Date Expira tion Date [facility].CYasminAUTH [id number] Problems Condition Name Condition Details Condition Category [...] 2021-08 00:00: 00 ATHSCL HEART DISEASE OF [place] CORONARY ARTERY W/O ANG PCTRS Active 08-10 [...] 2021-08 00:00: 00 06-20 23:59 :00 No [id number] UTI 1 tablet 2 TIMES DAILY 1 tablet 2 TIMES DAILY (route: oral) Med Classific ation: Anti-Infe ctive Agents enoxaparin 40 mg/0.4 mL subcutaneou s syringe 2021-08 00:00: 00 06-23 23:59 :00 No [id number] PROPHYLACTI C DVT PREVENTION 40 mg DAILY 40 mg DAILY (route: subcutaneo us) Med Classific ation: Hematolog ical Agents Jantoven 1 mg tablet 2021-08 00:00: 00 06-19 23:59 :00 No [id number] DVT PROPHYLAXIS 5 tablet DAILY 5 tablet DAILY (route: oral) Med Classific ation: Hematolog ical Agents oxycodone 5 mg tablet 2021-08 00:00: 00 Yes [id number] PAIN 7-10 1-2 tablet EVERY 6 HOURS 1-2 tablet EVERY 6 HOURS (route: oral) Med Classific ation: Analgesic , Anti-infl ammatory or Antipyret ic calcitriol 0.25 mcg capsule 2021-08 00:00: 00 Yes [id number] SUPPLEMENT 1 capsule DAILY 1 capsule DAILY (route: oral) Med Classific ation: Electroly te Balance-N utritiona l Products omeprazole 20 mg capsule,del ayed release 2021-08 00:00: 00 Yes [id number] GERD 1 capsule DAILY 1 capsule DAILY (route: oral) Med Classific ation: Gastroint estinal Therapy Agents hydroxyzine pamoate 25 mg capsule 2021-08 00:00: 00 Yes [id number] ANXIETY 1 capsule 3 TIMES DAILY 1 capsule 3 TIMES DAILY (route: oral) Med Classific ation: Central Nervous System Agents fluoxetine 10 mg capsule 2021-08 017 00:00: 00 Yes [id number] DEPRESSION 1 capsule DAILY 1 capsule DAILY (route: oral) Med Classific ation: Central Nervous System Agents fluoxetine 20 mg capsule 2021-0812 00:00: 00 Yes [id number] DEPESSION 1 capsule DAILY 1 capsule DAILY (route: oral) Med Classific ation: Central Nervous System Agents metoprolol succinate ER 50 mg tablet,exte nded release 24 hr 2021-08 00:00: 00 Yes [id number] HTN 1 tablet DAILY 1 tablet DAILY (route: oral) Med Classific ation: Cardiovas cular Therapy Agents Nyamyc 100,000 unit/gram topical powder 2021-08 0 00:00: 00 06-12 00:00 :00 No [id number] Per instruc tions ON RASH FOUR TIMES A DAY FOR 1 WEEK NEEDED Per instructio ns ON RASH FOUR TIMES A DAY FOR 1 WEEK NEEDED (route: topical) Med Classific ation: Dermatolo gical OneTouch Ultra Test strips 2021-08 0-05 00:00: 00 06-12 00:00 :00 No [id number] Per instruc tions TO CHECK BLOOD SUGAR ONCE DAILY Per instructio ns TO CHECK BLOOD SUGAR ONCE DAILY (route: miscellane ous) Med Classific ation: Medical Supplies and Durable Medical Equipment (DME) Acetaminoph en Extra Strength 500 mg tablet 2021-08 00:00: 00 Yes [id number] PAIN 2 tablet 3 TIMES DAILY 2 tablet 3 TIMES DAILY (route: oral) Med Classific ation: Analgesic , Anti-infl ammatory or Antipyret ic aspirin 81 mg tablet,karel yed release 2021-08 00:00: 00 Yes [id number] HEART HEALTH 1 tablet DAILY 1 tablet DAILY (route: oral) Med Classific ation: Hematolog ical Agents atorvastati n 20 mg tablet 2021-08 00:00: 00 Yes [id number] CHOLESTEROL 1 tablet BEDTIME 1 tablet BEDTIME (route: oral) Med Classific ation: Cardiovas cular Therapy Agents biotin 5 mg tablet 2021-08 00:00: 00 Yes [id number] SUPPLEMENT 1 tablet DAILY 1 tablet DAILY (route: oral) Med Classific ation: Electroly te Balance-N utritiona l Products diazepam 5 mg tablet 2021-08 00:00: 00 Yes [id number] ANXIETY 1 tablet 2 TIMES DAILY 1 tablet 2 TIMES DAILY (route: oral) Med Classific ation: Central Nervous System Agents levothyroxi ne 75 mcg tablet 2021-08 00:00: 00 Yes [id number] HYPOTHYROID ISM 1 tablet DAILY 1 tablet DAILY (route: oral) Med Classific ation: Endocrine magnesium 400 mg (as magnesium oxide) tablet 2021-08 00:00: 00 Yes [id number] LOW MAGNESIUM 1 tablet 2 TIMES DAILY 1 tablet 2 TIMES DAILY (route: oral) Med Classific ation: Electroly te Balance-N utritiona l Products methocarbam ol 750 mg tablet 2021-08 00:00: 00 Yes [id number] SPASMS 1 tablet EVERY 6 HOURS 1 tablet EVERY 6 HOURS (route: oral) Med Classific ation: Locomotor System Multiple Vitamins tablet 2021-08 00:00: 00 Yes [id number] SUPPLEMENT 1 tablet DAILY 1 tablet DAILY (route: oral) Med Classific ation: Electroly te Balance-N utritiona l Products Senna Plus 8.6 mg-50 mg capsule 2021-08 00:00: 00 Yes [id number] PREVENT CONSTIPATIO N 2 capsule BEDTIME 2 capsule BEDTIME (route: oral) Med Classific ation: Gastroint estinal Therapy Agents Vitamin C 1,000 mg tablet 2021-08 00:00: 00 Yes [id number] SUPPLEMENT 1 tablet DAILY 1 tablet DAILY (route: oral) Med Classific ation: Electroly te Balance-N utritiona l Products Vitamin D3 50 mcg (2,000 unit) tablet 2021-08 00:00: 00 Yes [id number] DEFICIENCY 2 tablet DAILY 2 tablet DAILY (route: oral) Med Classific ation: Electroly te Balance-N utritiona l Products Xalatan 0.005 % eye drops 2021-08 00:00: 00 Yes [id number] GLAUCOMA 1 drops BEDTIME 1 drops BEDTIME (route: ophthalmic (eye)) Med Classific ation: Ophthalmi c Agents zinc 50 mg tablet 2021-08 00:00: 00 Yes [id number] SUPPLEMENT 1 tablet BEDTIME 1 tablet BEDTIME (route: oral) Med Classific ation: Electroly te Balance-N utritiona l Products warfarin 1 mg tablet 2021-08 00:00: 00 06-30 23:59 :00 No [id number] BLOOD THINNER 3 tablet DAILY 3 tablet DAILY (route: oral) Alternate Route: BY MOUTH. Med Classific ation: Hematolog ical Agents Lovenox 40 mg/0.4 mL subcutaneou s syringe 2021-08 00:00: 00 06-16 23:59 :00 No [id number] DVT PROPHULACT 40 mg DAILY 40 mg DAILY (route: subcutaneo us) Med Classific ation: Hematolog ical Agents Jantoven 1 mg tablet 2021-08 00:00: 00 Yes [id number] ANTICOAGULA TION 6 mg DAILY 6 mg DAILY (route: oral) Med Classific ation: Hematolog ical Agents warfarin 1 mg tablet 2021-08 00:00: 00 Yes [id number] blood thinner 4 tablet DAILY 4 tablet [...] End Date/Time Encounter Type Admission Type Attending [facility] Care Department Encounter ID Discharge Date Discharge Status Discharge Condition Discharge Reason Percent Goals Met 2022-06-12 00:00:00 2022-07-09 00:00:00 Outpatient CARLEY BENITEZ [facility] [id number] 2022-07-09 00:00:00 DISCHARGE TO HOME OR SELF CARE INDEPENDEN T IN THE HOME HH ONLY - PER CLIENT REQUEST 87.88
== END 2024-08-17 07:37 | disposition home or self-care (01) ==
LOC: HO.CT 07:36
PROVIDERS: PCP Internal Medicine; Visit Provider Orthopaedic Surgery
DX: M25.562 Pain in left knee (principal)
CPT/HCPCS: 73700

== ENCOUNTER → 2024-08-17 07:43 | Outpatient (BNV) | payer MEDICARE, SELFPAY | PROVIDERS: PCP Internal Medicine; Visit Provider Radiology Diagnostic Radiology | DX: S82.042A Displaced comminuted fracture of left patella, initial encounter for closed fracture (principal); M97.11XA Periprosthetic fracture around internal prosthetic right knee joint, initial encounter | CPT/HCPCS: 73700 ==

== ENCOUNTER 2024-09-05 13:01 | Outpatient (AMB) | payer MEDICARE, SELFPAY ==
--- NOTE | 2024-09-05 13:05 | MHC.OFFVIS ---
Vital Signs 09/05/24 13:07 Height 4 ft 11 in Weight 171 lb BMI 34.5 BP 125/86 Blood Pressure Location Lt brachial Position Sitting Respiration 16 Pulse 75 Pulse Source Pulse Oximeter Pulse Oximetry (%) 98 Oxygen Delivery Method Room Air Intake Visit Reasons: Bilateral Leg Pain Allergies Iodinated Contrast Media [IV CONTRAST] Allergy (Severe, Verified 09/05/24 13:10) ANAPHYLAXIS sumatriptan [From IMITREX] Allergy (Severe, Verified 09/05/24 13:10) PT STATES CAUSED [place] adhesive tape [ADHESIVE TAPE] Allergy (Intermediate, Verified 09/05/24 13:10) SKIN BLISTERS lisinopril [LISINOPRIL] Allergy (Mild, Verified 09/05/24 13:10) COUGH ciprofloxacin [CIPROFLOXACIN] Allergy (Unknown, Verified 09/05/24 13:10) RASH AND ITCHING 1st Relief [place] Allergy (Unknown, Uncoded 09/05/24 13:10) unknown Iodinated I 131 Albumin Allergy (Unknown, Uncoded 09/05/24 13:10) unknown Medication List - Last Reconciled 09/05/24 by Pilar Barron LPN albuterol sulfate 90 mcg/actuation 2 puffs inhalation Q4H PRN ascorbic acid (vitamin C) 1 g PO Q6H aspirin (Adult Low Dose Aspirin) 81 mg PO DAILY atorvastatin 20 mg PO DAILY blood sugar diagnostic (EcoSynthetixuch Verio test strips) As directed bupropion HCl 125 mg PO QAM calcitriol 0.25 mcg PO DAILY cholecalciferol (vitamin D3) 25 mcg PO DAILY furosemide 20 mg PO DAILY PRN gabapentin mg PO BID hydroxyzine HCl 25 mg PO TID PRN lancets (RepairogenTouch Delica Plus Lancet) As directed latanoprost 0.005% 1 drp ophthalmic (eye) BEDTIME levothyroxine mcg PO metoprolol succinate ER 50 mg PO DAILY nystatin topical QID PRN omeprazole 20 mg PO DAILY oxycodone 2.5 mg PO BID PRN trazodone 100 mg PO BEDTIME vibegron (Gemtesa) 75 mg PO DAILY HPI HPI Bilateral Leg Pain: Details: History of Present Illness The patient is a 69-year-old female presenting with chronic left knee pain following total knee arthroplasty. The knee replacement was conducted on the left side prior to June 02, 2024. Since then, the patient has experienced an incomplete recovery and continues to experience severe pain. Initially, the pain was described as 9/10 in intensity and remained constant at 8/10 throughout the day, becoming slightly less severe by the evening. Despite taking gabapentin 100 mg three times daily, the pain persists. She also takes vitamin D supplementation and bupropion. Previous treatments included physical therapy and exercise, which provided no relief. The pain exacerbates with activity, like climbing stairs, and occasional knee give-way episodes have been reported but are not work-related. The patient had a CT scan indicating a minimally displaced fracture of the patella, and moderate suprapatellar joint effusion was noted. The patient sees a therapist for psychological support. Pain Description - Onset: Chronic, since May 2024 - Quality: Aching, sore - Location: Left knee - Intensity: Initially 9/10; current 8/10 - Aggravating factors: Activity, particularly climbing stairs - Alleviating factors: Less severe towards the evening - Impact: Interferes with work; mobility challenges with stairs; not work-related Physical Exam - Musculoskeletal- Tenderness to palpation around the patella and infrapatellar regions (left knee) Results - Minimally displaced fracture of the patella - Moderate suprapatellar joint effusion Pain Management - Affect: Managing psychological impact with therapy - Analgesia: Taking gabapentin 100 mg three times daily; pain intensity 8/10 - Adverse Effects: None reported from the medications - Activities of Daily Living: Continues to work full-time; difficulty with stairs - Aberrant Drug Related Behaviors: None reported [facility] Medical History (Updated 07/27/24 @ 07:43 by Benny Boone MD) Lumbar radiculopathy Surgical History (Updated 05/27/20 @ 19:55 by Tushar Antony MD) Status post replacement of right shoulder joint Social History Alcohol intake: never Patient Tobacco Use Status: Never used Tobacco Current occupational status: employed and retired Physical Exam Vital Signs: Last Vital Signs Pulse 75 09/05/24 13:07 Resp 16 09/05/24 13:07 BP 125/86 09/05/24 13:07 Pulse Ox 98 09/05/24 13:07 Oxygen Delivery Method Room Air 09/05/24 13:07 BMI result Body Mass Index 34.5 Assessment & Plan Assessment & Plan (1) Chronic pain of both knees: Code(s): M25.561 - Pain in right knee; M25.562 - Pain in left knee; G89.29 - Other chronic pain Category: Medical Plan Plan - Submit insurance authorization request for temporary nerve stimulation targeting the saphenous nerve for left knee pain status post total knee arthroplasty - Consideration of this procedure to manage pain while allowing the fracture to heal - Initiation and guidance with usage of nerve stimulation device - Arrange follow-up to evaluate pain relief and healing progress Patient was informed and verbally consented to the use of an ambient scribe for clinic note documentation during this visit. Discussion Notes We discussed how the chronic knee pain following total knee arthroplasty is linked to a minimally displaced fracture of the patella and moderate suprapatellar joint effusion. We reviewed options, including nerve stimulation therapy, which involves placing a device in front of the thigh to alleviate pain from the knee by modulating nerve signals. This device stays in place for two months with potential effects lasting 8-10 months. We discussed the logistics and practical considerations of using this device, including its implantation in an outpatient setting, insurance clearance, and post-procedure management. I explained the potential benefits and the mechanism behind the pain relief anticipated from this intervention. We also covered the need for insurance clearance and the potential timeline once approved. The patient expressed understanding and agreement with this course of action. Patient Instructions - Await insurance authorization for nerve stimulation procedure - Continue current medication regimen as prescribed - Modify activities to avoid exacerbating knee pain - Practice safe maneuvering on stairs to prevent further injury or falls - Follow up as instructed for the procedure scheduling and progress evaluation - Monitor symptoms and seek timely care if worsening pain or new symptoms arise Coding Level of Care Code New Pt Level 4 (64669) Diagnoses Chronic pain of both knees M25.561; M25.562; G89.29
[2024-09-05 13:07] VITALS: BP 125/86; PULSE 75; RESP 16; O2SAT 98; BMI 34.5
--- OUTSIDE RECORDS SUMMARY | 2024-09-05 17:38 | XMS_ITS | Data Portability ---
Author Organization [place] [facility] AONE Benjamin Address [address] [facility] [address] [place] [address] Care Team Providers Care Take Up Operator Name Role Phone YUEHEMANT TRIANA Primary Care Provider [phone] Assessment Encounter Date Assessment Date Assessment LastModified by Organization Details LastModified Time 12/26/2022 12/26/2022 67-year-old female status post left total knee arthroplasty by Dr. Boone on June 09, 2022. She appears to be doing well clinically. She should continue with her stretching exercise regimen. She will take her antibiotic prophylaxis prior to dental work. I would like to reevaluate her in 3 months. The patient agrees with the above-noted plan. Patient had an incident with tripping over a Toy on 10/10/2022 for which I assessed her. She seems very stable she is asking for creams and ointments to apply however [id number] pain medication as recommended. I did offer her formal physical therapy for which she declined this she states I do not feel I need this . She will be seen at her next scheduled follow-up on her anniversary date. Should her symptoms not continue to improve she should contact my office. She was discharged in stable condition. Indirect care and treatment in conjunction with Dr. Casper Additional treatment plan discussed with the patient in detail included the following; - Provider focused nonsteroidal anti-inflammator y regimen (discussed were the pros, cons, benefits and risks as well as any black box warnings) in patients over 60 years old they should be very cautious in taking these medications due to potential decreased kidney function and or elevated blood pressure. - Analgesic pain medication for pain suppression (discussed were the pros, cons, benefits and risks as well as any black box warnings) - The use of topical pain relieving medication were discussed - The use of ice to decrease inflammation and pain - The use of assistive ambulatory devices for ambulation and fall prevention - Formal specific guided physical therapy program I reviewed my findings at length with the patient today. ? ? ?We discussed the nature and etiology of this problem along with current treatment options. We discussed the expected course and outcomes and what to expect. We also discussed risks and benefits. ? ? ? All of their questions were answered today, and there was exhibited understanding and comprehension of all that was discussed. Time Spent: 10 minutes were spent reviewing previous imaging and charting. ? ? ?10 minutes were spent obtaining patient history. ? ? ?5 minutes were spent on physical exam. ? ? ?5? ? ?minutes were spent explaining diagnosis and assessment. Today's documentation was made using voice recognition software. This note may contain grammatical errors secondary to the software. [email or web address] Not available 12/26/2022 13:36:57 Plan of Treatment Reminders Order Date Submit Date Provider Last Modified By Organization Details Last Modified Time Details Appointments None record ed. Lab None record ed. Referral None record ed. Procedures None record ed. Surgeries None record ed. Imaging None record ed. Medication Orders None record ed. Patient TargetsNo targets recorded. Patient InstructionsNo instructions recorded. Reason for Referral None Reported. Problems Name Problem SNOMED Code Status Onset Date Resolution Date Notes Provider Name and Address Organization Details Recorded Time Pain of left knee joint [id number] Active 2022 PARISH BELL PA-C [address] [facility] [address], [place], [address] [facility] [place], 3 13:37:02 Problem Notes None recorded. Medical Equipment None Reported. Allergies No known drug allergies Medications Name Sig Start Date Stop Date Status Note LastModified by Organization Details LastModified Time tolterodine ER 2 mg capsule,exte nded release 24 hr active Not Available Not Available Not Available latanoprost 0.005 % eye drops INSTILL 1 DROP INTO EACH EYE AT BEDTIME. active Not Available Not Available No t Available atorvastatin 20 mg tablet TAKE ONE TABLET BY MOUTH EVERY DAY active Not Available Not Available No t Available cefpodoxime 100 mg tablet TAKE ONE TABLET BY MOUTH TWICE A DAY FOR 10 DAYS active Not Available Not Available No t Available metoprolol succinate ER 50 mg tablet,exten ded release 24 hr TAKE ONE TABLET BY MOUTH EVERY DAY active Not Available Not Available No t Available tolterodine ER 4 mg capsule,exte nded release 24 hr TAKE ONE CAPSULE BY MOUTH EVERY DAY active Not Available Not Available No t Available levothyroxin e 75 mcg tablet TAKE ONE TABLET BY MOUTH EVERY DAY active Not Available Not Available No t Available hydromorphon e 2 mg tablet TAKE 1 TABLET BY MOUTH EVERY 4 HOURS NEEDED active Not Available Not Available No t Available methocarbamo l 750 mg tablet TAKE ONE TABLET BY MOUTH EVERY 6 HOURS NEEDED FOR MUSCLE SPASMS. active Not Available Not Available No t Available GraymaticsToGreenVolts Ultra Test strips USE TO CHECK BLOOD SUGAR ONCE DAILY active Not Available Not Available No t Available fluoxetine 10 mg capsule TAKE ONE CAPSULE BY MOUTH EVERY DAY active Not Available Not Available No t Available omeprazole 20 mg capsule,karel yed release TAKE ONE CAPSULE BY MOUTH EVERY DAY active Not Available Not Available No t Available gabapentin 100 mg capsule TAKE ONE CAPSULE BY MOUTH AT BEDTIME active Not Available Not Available No t Available albuterol sulfate HFA 90 mcg/actuatio n aerosol inhaler INHALE 2 PUFFS INTO THE LUNGS EVERY 4 HOURS NEEDED FOR COUGH FOR SHORTNESS OF BREATH OR WHEEZING active Not Available Not Available Not Available hydroxyzine HCl 10 mg tablet TAKE ONE TABLET BY MOUTH TWICE A DAY NEEDED FOR ANXIETY active Not Available Not Available No t Available fluoxetine 20 mg capsule TAKE 1 CAPSULE BY MOUTH DAILY DIRECTED active Not Available Not Available Not Available calcitriol 0.25 mcg capsule TAKE ONE CAPSULE BY MOUTH EVERY DAY active Not Available Not Available No t Available diazepam 5 mg tablet TAKE ONE TABLET BY MOUTH TWICE A DAY active Not Available Not Available No t Available amoxicillin 875 mg-potassium clavulanate 125 mg tablet TAKE 1 TABLET BY MOUTH TWICE DAILY FOR 7 DAYS active Not Available Not Available No t Available oxycodone 5 mg tablet TAKE ONE TABLET BY MOUTH EVERY DAY NEEDED FOR SEVERE PAIN active Not Available Not Available Not Available hydroxyzine pamoate 25 mg capsule TAKE ONE CAPSULE BY MOUTH THREE TIMES DAILY NEEDED FOR ANXIETY active Not Available Not Available Not Available enoxaparin 40 mg/0.4 mL subcutaneous syringe INJECT 40MG 0.4ML) SUBCUTANEOU SLY ONCE DAILY UNTIL INR IS 2 OR GREATER DIRECTED. active Not Available Not Available No t Available Vitamin D3 25 mcg (1,000 unit) capsule TAKE TWO CAPSULES BY MOUTH EVERY DAY active Not Available Not Available No t Available Senna Plus 8.6 mg-50 mg tablet TAKE TWO TABLETS BY MOUTH EVERY EVENING active Not Available Not Available No t Available Jantoven 1 mg tablet TAKE 5 TABLETS BY MOUTH AT DINNER DAILY UNLESS OTHERWISE INSTRUCTED BY PHYSICIAN'S OFFICE. active Not Available Not Available No t Available nitrofuranto in monohydrate/ macrocrystal s 100 mg capsule TAKE 1 CAPSULE BY MOUTH TWICE DAILY active Not Available Not Available No t Available [facility] 100,000 unit/gram topical powder APPLY ON RASH FOUR TIMES A DAY FOR 1 WEEK NEEDED. active Not Available Not Available N ot Available Vitals Date Recorded Body height Body mass index (BMI) Body weight Provider Name and Address Organization Details Last Updated DateTime 12/26/2022 152.4 cm 40.2 kg/m2 46578.03 g Chastity Hernandez [place] [facility] [place], 12/26/2022 13:24:38 Social History Question Answer Notes LastModified by Organizat ion Details LastModified Time Tobacco Smoking Status Never Smoker Chastity Hernandez [facility], [place] - [facility] [place], P 12/26/2022 13:25:15 What Is Your Level Of Alcohol Consumption? Occasional [email or web address] Information not available 12/26/2022 Do You Use Any Illicit Or Recreational Drugs? No [email or web address] Information not available 12/26/2022 Do You Or Have You Ever Used Any Other Forms Of Tobacco Or Nicotine? No Information not available 12/26/2022 Sex: Unknown Functional Status None recorded. Mental Status None recorded. Family History Nothing Reported. Medical History Condition Response Diabetes Y Heart Attack (AR) Y Hypertension Y Asthma Y Kidney Disease Y Gynecological HistoryNo gynecological history recorded. Obstetrics History GPAL:G 0 P 0 0 0 0 Past Encounters Encounter ID Performer Location Encounter Start Date Encounter Closed Date Diagnosis/Indication Diagnosis SNOMED-CT Code Diagnosis ICD10 Code Diagnosis Note [id number] MD DOUG Mcdonaldsilas [address] [place] [address] 12/26/2022 13:12:57 12/26/2022 13:34:49 Pain of left knee joint [id number] 35190 M25.562 Health Concerns Section Related Observation LastModified by Organization Detai calvin LastModified Time None Recorded Concern Status LastModified by Organization Details LastModified Time None Recorded Advance Directives Directive None Recorded Payers Encounter Date Sequence Insurance Name Policy Number Policy Clifford Covered Member ID Clifford Member ID Guarantor Name 12/26/2022 1 [facility] - MEDICARE PREFERRED (MEDICARE REPLACEMENT HMO) [id number] Rose Noyola [id number] Rose Noyola Notes Date Note Type Note Provider Name and Address Organization Details Recorded Time 12/26/2022 text/html Pleasant 67-year-old female here for follow-up on her left total knee arthroplasty August 09, 2022The patient is here for first postop visit after undergoing total knee arthroplasty. Date of surgery: Patient states they are doing well. They (the patient ) are taking their pain medication as directed. They are currently doing their physical therapy as well as home exercise plan. They are utilizing ancillary assistive walking devices for ambulation and fall prevention. They are currently on DVT prophylaxis with They deny fever, denies chills, denies flulike symptoms, denies cough, denies shortness of breath, deny calf pain. She was last seen on 10/10/2022 for assessment of her left knee after falling over a cat toy. She states she is doing better she does have a cage in her back which sometimes causes some discomfort. She describes her pain is laterally over her left knee. Denies any swelling. She is asking for something to take for pain. Patient states she is doing well. Occasional stiffness at night and while walking. Denies fevers, chills, flulike symptoms denies any warmth overlying the replaced knee joint. PARISH BELL PA-C [address] [place] [address], [phone], [place] - [facility] [place], 12/26/2022 13:37:21 OBGyn Episode No OBEpisode recorded.
--- OUTSIDE RECORDS SUMMARY | 2024-09-05 17:38 | XMS_ITS | Encounter Summary ---
Author Organization [facility] Address [address] [place] [address] Care Team Providers Care Patient Escort Name Role Phone Stevan Mosquera MD Primary Care Provider [phone] Reason for Referral * Consultation (Routine) - Closed Specialty Diagnoses / Procedures Referred By Contac t Referred To Contact Pain Medicine Diagnoses Acute pain of left knee Chronic midline low back pain without sciatica Stevan Mosquera MD [address] [place] [address] Quan Rojas MD [address] [place] [id number] Referral ID Status Reason Start Date Expiration Date V isits Requested Visits Authorized [id number] Closed Specialty Services Required 08/21/2024 08/21/2025 [address] Quan Rojas at [facility] Encounter Details Date Type Department Care Team (Late st Contact Info) Description 08/21/2024 Telephone Adult Medicine [address] [phone] Stevan Mosquera MD [address] [place] [address] Social History Tobacco Use Types Packs/Day Years Used Date Smoking Tobacco: Never Smokeless Tobacco: Never Alcohol Use Standard Drinks/Week Comments No 0 (1 standard drink = 0.6 oz pur e alcohol) Sex and Gender Information Value Date Recorded Sex Assigned at Female 06/27/2024 1:40 PM EST Gender Identity Female 06/27/2024 1:40 PM EST Sexual Orientation Straight 06/30/2024 12 :02 PM EST Job Start Date Occupation Industry Not on file Not on file Not on file documented as of this encounter Progress Notes * Stevan Mosquera MD - 08/21/2024 9:43 PM EST Pain management referral is ordered documented in this encounter Plan of Treatment Upcoming Encounters Date Type Department Care Team (Late st Contact Info) Description 09/07/2024 1:30 PM EST Appointment Radiology Department - [address] [phone] 12/28/2024 3:15 PM EDT Office Visit Nephrology - [address] [phone] Eduin Foster MD [address] [phone] 03/14/2025 4:00 PM EDT Office Visit Adult Medicine [place] - [address] [phone] Sinai Khan PA [address] [place] [address] Scheduled Referrals Name Type Priority Associated Diagnoses Order Schedule Ambulatory referral to Pain Medicine Outpatient Referral Routine Acute pain of left knee Chronic midline low back pain without sciatica 1 Occurrences starting 08/21/2024 until 08/21/2025 documented as of this encounter Visit Diagnoses Diagnosis Acute pain of left knee- Primary Chronic midline low back pain without sciatica documented in this encounter Care Teams Patient Escort Relationship Specialty Start Date End Date Stevan Mosquera MD [address] [place] [address] PCP - General Internal Medicine 12/25/21 documented as of this encounter
--- OUTSIDE RECORDS SUMMARY | 2024-09-05 17:38 | XMS_ITS | Clinical Summary ---
Author Organization [facility] Address [address] [place] [address] Care Team Providers Care [place] Hand Name Role Phone Stevan Mosquera MD Primary Care Provider Allergies Active Allergy Reactions Criticality Noted Date Comments Ibuprofen 05/18/2017 Sumatriptan 05/18/2017 Iodinated Contrast Media 05/18/2017 Iodine 05/18/2017 Lisinopril 05/18/2017 Nsaids 05/18/2017 Sulfamethoxazole-Trimethoprim 2019 Medications Medication Sig Dispensed Refills Start Date End Date Status aspirin EC 81 MG tablet Take 81 mg by mouth daily. 0 Active betamethasone dipropionate (DIPROSONE) 0.05 % cream Apply topically 2 (two) times a day. 0 Active Calcium Carb-Cholecalciferol (CALCIUM 600 + D PO) Take by mouth. 0 Active clotrimazole-betamet hasone (LOTRISONE) cream Apply topically 2 (two) times a day. 0 Active diazepam (VALIUM) tablet 5 mg Take 5 mg by mouth every 6 (six) hours as needed for anxiety. 0 Active Diclofenac Sodium 1 % GEL topical Place onto the skin. 0 Active fluticasone (FLOVENT HFA) 110 MCG/ACT inhaler Inhale 1 puff into the lungs 2 (two) times a day. 0 Active FLUoxetine (PROZAC) 10 MG capsule Take 10 mg by mouth daily. 0 Active gabapentin (NEURONTIN) 300 MG capsule Take 300 mg by mouth 3 (three) times a day. 0 Active hydrOXYzine (ATARAX) 25 MG tablet Take by mouth. 0 Active ipratropium-albutero l (DUO-NEB) 0.5-2.5 mg/mL nebulizer Inhale 3 mL into the lungs. 0 Active ferrous sulfate 325 (65 FE) MG tablet Take 325 mg by mouth every morning with breakfast. 0 Active levothyroxine (SYNTHROID, LEVOXYL) tablet 100 mcg Take 100 mcg by mouth every morning on an empty stomach. 0 Active losartan-hydrochloro thiazide (HYZAAR) 100-12.5 MG per tablet Take 1 tablet by mouth daily. 0 Active methocarbamol (ROBAXIN) 500 MG tablet Take 500 mg by mouth 4 (four) times a day. 0 Active mupirocin (BACTROBAN) 2 % ointment Apply topically 3 (three) times a day. 0 Active nitrofurantoin (MACRODANTIN) 100 MG capsule Take 100 mg by mouth 4 (four) times a day. 0 Active nitroglycerin (NITROSTAT) 0.[address] 0.4 mg under the tongue every 5 (five) minutes as needed for chest pain. 0 Active omeprazole (PRILOSEC) 40 MG capsule Take 40 mg by mouth daily. 0 Active OXYBUTYNIN CHLORIDE ER PO Take by mouth. 0 Active predniSONE (DELTASONE) tablet 10 mg Take by mouth every morning with breakfast. 0 Active Probiotic Product (PROBIOTIC DAILY PO) Take by mouth. 0 Active propranolol (INDERAL) 80 MG tablet Take 80 mg by mouth 3 (three) times a day. 0 Active camphor-menthol (SARNA) lotion Apply topically as needed for itching. 0 Active Vitamin A-Vitamin D-Minerals (SUPER D3 COMPLEX PO) Take by mouth. 0 Active triamcinolone (KENALOG) 0.1 % cream Apply topically 2 (two) times a day. 0 Active albuterol (VENTOLIN HFA) 108 (90 BASE) MCG/ACT inhaler Inhale 2 puffs into the lungs every 6 (six) hours as needed for wheezing. 0 Active Ascorbic Acid (VITAMIN C) 1000 MG tablet Take 1,000 mg by mouth daily. 0 Active cholecalciferol (VITAMIN D3) 1000 UNITS tablet Take 1,000 Units by mouth daily. 0 Active Zinc 50 MG CAPS Take by mouth. 0 Activ e amoxicillin (AMOXIL) 500 MG tablet Take 4 tabs 1 hour prior to dental appointment 20 tablet 3 03/09/2018 Active doxycycline (VIBRA-TABS) 100 MG tablet TAKE 1 TABLET TWICE DAILY 0 07/13/2018 Active Naloxone HCl (NARCAN) 4 MG/0.1ML LIQD spray or apply 1 mL inside Nose once as needed for up to 1 dose. 1 each 0 07/27/2018 Active oxyCODONE (ROXICODONE) 5 MG immediate release tablet Take 1 tab every 8 hours as needed for pain 40 tablet 0 04/30/2022 Active oxyCODONE (ROXICODONE) 5 MG immediate release tablet Take 1-2 tabs every 4 hours as needed for pain 50 tablet 0 07/01/2022 Active Active Problems Problem Noted Date Diagnosed Date Arthritis of right glenohumeral joint 02/11/2019 Postop check 07/27/2018 Arthritis of right hip 05/21/2017 Immunizations Name Administration Dates Next Due Covid-19 (Pfizer) Dilution Required 11/19/2021,1 Social History Tobacco Use Types Packs/Day Years Used Date Smoking Tobacco: Never Assessed Sex and Gender Information Value Date Recorded Sex Assigned at Not on file Gender Identity Not on file Sexual Orientation Not on file Job Start Date Occupation Industry Not on file Not on file Not on file Last Filed Vital Signs Vital Sign Reading Time Taken Comments Blood Pressure - - Pulse - - Temperature - - Respiratory Rate - - Oxygen Saturation - - Inhaled Oxygen Concentration - - Weight 93.4 kg (206 lb) 10/03/2021 1:07 PM EST Height 152.4 cm (5') 10/03/2021 1:07 PM EST Body Mass Index 40.23 10/03/2021 1:07 PM EST Plan of Treatment Health Maintenance Due Date Last Done Comments Hepatitis C Screening 1953 Depression Screening 1965 BMI Counseling 1971 Preventative Health Evaluation 1971 Colon Cancer Screening (Colonoscopy) 1998 Breast Cancer Screening (Mammogram) 2003 Fall Risk Assessment 2018 Osteoporosis Screening (DEXA Scan) 2018 COVID-19 Vaccine ( season) 2024 11/19/2021, 06/06/2021, 11/12/2020 Influenza Vaccine (#1) 2024 2, 04/27/2021, 04/08/2019, Additional history exists RSV Adult > 60+ Yrs or (1 - 1-dose 75+ series) 2028 DTap / Tdap / Td (2 - Td or Tdap) 09/17/2029 09/17/2019 Pneumococcal Vaccine Completed 04/08/2019, 07/18/2015, 01/01/2013 Shingrix-Zoster Vaccine Completed 09/17/2020, 07/19 Hepatitis B Vaccines Aged Out No long er eligible based on patient's age to complete this topic RSV Ped < 20 months Aged Out No longe r eligible based on patient's age to complete this topic Care Teams Washhouse Hand Relationship Specialty Start Date End Date Stevan Mosquera MD [address] [place] [phone] PCP - General Hospitalist Medicine 04/22/22
--- OUTSIDE RECORDS SUMMARY | 2024-09-05 17:39 | XMS_ITS | Clinical Summary ---
Author Organization [facility] [place] Address [address] [place] [address] Care Team Providers Care Hospital Scientist Name Role Phone Stevan Mosquera MD Primary Care Provider [phone] Allergies Active Allergy Reactions Criticality Noted Date Comments Adhesive Tape-Silicones 08/15/2019 Other Reaction(s): Rash/Dermatitis Diagnostic 05/05/2024 Diagnostic X-ray Materials Ibuprofen 01/06/2013 Iodinated Contrast Media 05/26/2013 Iv Contrast Dye Iodine 05/18/2017 Lisinopril 08/31/2012 Nitrofurantoin 08/25/2023 Intchyness Nsaids (Non-Steroidal Anti-Inflammatory Drug) 01/21/2017 Other 11/07/2011 kneoprene Sulfamethoxazole-Trimethoprim 2019 Sumatriptan 01/21/2017 Other Reaction(s): OTHER Tetracycline 05/21/2023 Medications Medication Sig Dispensed Refills Start Date End Date Status calcium carbonate-vitamin D3 1,000 mg-20 mcg (800 unit) tablet Take 1 Tablet by mouth daily. 05/29/2023 Active cholecalciferol (VITAMIN D-3) 25 mcg (1,000 unit) tablet TAKE ONE CAPSULE BY MOUTH EVERY DAY Active CRANBERRY ORAL Take by mouth. 14525 mg daily Active furosemide (LASIX) 20 mg tablet Take 1 Tablet by mouth as needed (lower extremity swelling). 02/19/2024 Active gabapentin (NEURONTIN) 100 mg capsule Take 1 Capsule by mouth at bedtime. 03/02/2024 Active hydrOXYzine HCL (ATARAX) 25 mg tablet Take 1 Tablet by mouth 3 times daily as needed for Anxiety. 03/02/2024 Active lancets (Qyer.comuch Delica Plus Lancet) 33 gauge Apply 1 Stick topically daily. 06/09/2023 Active latanoprost (XALATAN) 0.005 % ophthalmic solution INSTILL 1 DROP INTO BOTH EYES EVERY NIGHT AT BEDTIME 12/27/2020 Active levothyroxine (SYNTHROID, LEVOTHROID) 75 mcg tablet TAKE 1 TABLET BY MOUTH DAILY FROM THURSDAY TO THURSDAY AND TAKE 1 AND 1/2 TABLETS EVERY Thursday10/08/2023 Active magnesium oxide (MAG-OX) 400 mg magnesium tablet Take 400 mg by mouth daily. Active metoprolol succinate (TOPROL-XL) 50 mg 24 hr tablet Take 1 Tablet by mouth daily. 05/29/2023 Active ZINC ORAL Take 1 Tab by mouth daily. Active nystatin (MYCOSTATIN) 100,000 unit/gram powder Sprinkle on rash 4 times/day for 1 week as needed 11/26/2023 11/26/2024 Active omeprazole (PriLOSEC) [address] capsule Take 1 Capsule by mouth daily. 01/08/2023 Active blood sugar diagnostic (Collabor[employer] Verio test strips) test strip Use to test blood sugar once daily 06/09/2023 Active trazodone HCl (TRAZODONE ORAL) Take 125 mg by mouth at bedtime Active vibegron (Gemtesa) 75 mg tablet tablet Take 1 Tablet by mouth daily Active blood-glucose meter kit 1 Device by Does not apply route daily. 06/09/2023 Active biotin 5 mg capsule Take by mouth. A ctive atorvastatin (LIPITOR) 20 mg tablet TAKE ONE TABLET BY MOUTH EVERY DAY 08/18/2023 Active aspirin 81 mg EC tablet Take 1 Tablet by mouth daily. Active ascorbic acid (VITAMIN C) 1,000 mg tablet Take 1,000 mg by mouth daily. Active albuterol HFA (PROAIR HFA ; PROVENTIL HFA ; VENTOLIN HFA) 90 mcg/actuation inhaler Inhale 2 Puffs into the lungs every 4 hours as needed for Cough, Wheezing or Shortness of Breath. 07/08/2023 Active calcitrioL (ROCALTROL) 0.25 mcg capsule TAKE ONE CAPSULE BY MOUTH EVERY DAY 10/12/2023 Active bupropion HCl (WELLBUTRIN ORAL) Take 125 mg by mouth daily Active gabapentin (NEURONTIN) 100 mg capsule Take 2 capsules (200 mg total) by mouth at bedtime. 60 each 3 06/27/2024 Active oxyCODONE (ROXICODONE) 5 mg immediate release tablet Take 0.5 tablets (2.5 mg total) by mouth 2 (two) times a day if needed for severe pain. Max Daily Amount: 5 mg 7 tablet 06/27/2024 Active Active Problems Problem Noted Date Diagnosed Date Stage 3 chronic kidney disease 05/05/2024 Urinary incontinence 05/05/2024 Anxiety and depression 05/05/2024 Cervical pain (neck) 05/05/2024 Chest pain 05/05/2024 Arthralgia 05/05/2024 Major depressive disorder, recurrent episode, mo derate 05/05/2024 Peripheral polyneuropathy 05/05/2024 Chronic midline low back pain without sciatica 0 11/26/2023 Hypomagnesemia 11/26/2023 Restless leg syndrome 11/26/2023 SIADH (syndrome of inappropriate ADH production) 08/20/2023 Insomnia 07/27/2023 Prediabetes 07/27/2023 Shortness of breath 05/21/2023 Subclavian artery stenosis 07/24/2022 Coronary artery disease invo lving on[place]aga heart without angina pectoris 07/24/2022 Hyponatremia 02/01/2021 Old myocardial infarction 01/28/2021 Overview (05/05/2024): Old myocardial infarction Disorder of pericardium 01/28/2021 Overview (05/05/2024): Disorder of pericardium Acute pericarditis 01/28/2021 Overview (05/05/2024): Acute pericarditis Macromastia 08/15/2019 Arthritis of right glenohumeral joint 02/11/2019 Aneurysm, carotid artery, internal 12/14/2018 Overview (05/05/2024): 3mm, stable last MRA 12/14/18 Glaucoma 11/12/2018 Overview (05/05/2024): Dr. Aundrea Marina Essential hypertension 02/04/2018 Overview (05/05/2024): Last Assessment & Plan: Blood pressure well controlled. Continue beta-chetan at current dose. Type 2 diabetes mellitus with renal manifestatio ns 02/03/2018 Hyperlipidemia 01/15/2018 Overview (05/05/2024): Last Assessment & Plan: LDL somewhat above target. Continue statin at current dose. Dietary modification and increased exercise will help. Hypothyroidism 01/15/2018 Chronic dermatitis 06/08/2017 Overview (05/05/2024): F/u Dr. Rodriguez Chronic obstructive pulmonary disease 06/08/2017 GERD (gastroesophageal reflux disease) 7 Migraine 05/29/2017 Overview (05/05/2024): Sees dr. Jansen Cerebral aneurysm 05/29/2017 Overview (05/05/2024): Reported by patient; follows with Neurology at [facility] Prurigo nodularis 05/29/2017 Arthritis of right hip 05/21/2017 Congenital spondylolisthesis 01/21/2017 Morbid obesity 12/24/2016 Asthma 12/18/2016 Takotsubo cardiomyopathy 03/07/2016 Overview (05/05/2024): followed by [facility] Cardiology Dr. Salcedo LVEF 30% in 2011 has recovered to normal Cardiac catheterization in 2011 without obstructive coronary artery disease Last Assessment & Plan: The patient appears euvolemic on exam, but she does report some dyspnea on exertion. This is most likely deconditioning. She has gained about 5 pounds since her last visit with about 6 months ago. However, she does not have PND, orthopnea, or lower extremity edema. For now, continue current treatment plan with beta- chetan. Update echocardiogram as it has been a number of years since her last, but she is able to slowly increase her exercise and follow her symptoms in the meantime. Osteopenia 11/08/2015 Encounters Date Type Department Care Team Description 08/21/2024 Telephone Adult Medicine [address] [phone] Stevan Mosquera MD 08/04/2024 Telephone Adult Medicine [address] [phone] Stevan Mosquera MD INSURANCE PRIO AUTH; [place] [facility] [place] 06/30/2024 11:39 AM EST - 06/30/2024 3:[address] [facility] [address] [place] [id number] Gabriel Simms MD Acute pain of left knee (Primary Dx) Discharge Disposition: Home or Self Care 06/27/2024 2:00 PM EST Office Visit Adult Medicine [address] [phone] Stevan Mosquera MD Acute pain of left knee (Primary Dx); Essential hypertension; Coronary artery disease involving on[place] heart without angina pectoris, unspecified vessel or lesion type; Acquired hypothyroidism; Stage 3 chronic kidney disease, unspecified whether stage 3a or 3b CKD (CMS/HCC); Hypomagnesemia; Hyponatremia; Chronic midline low back pain without sciatica; Peripheral polyneuropathy; Restless leg syndrome; Osteopenia, unspecified location; Mild intermittent asthma without complication; Anxiety and depression; Prediabetes 06/22/2024 Nurse Triage Adult [address] [phone] Stevan Mosquera MD Knee Pain from Last 3 Months Immunizations Name Administration Dates Next Due Influenza trivalent, 0.5mL ( Fluzone High-dose) 65yo and older 05/29/2023,2022,04/27/2021,04/08,06/18/2018 Influenza trivalent, 0.5mL, preservative free (Fluarix; FluLaval; Fluzone) ages 6mo and older (Afluria) 3 years and older 04/13/2020,04/23/2017,06/04/2016,06/08 Influenza, Unspecified 04/08/2019 [employer] SARS-CoV-2 COVID -19, vector-nr, rS-Ad26, preservative free 11/12/2020 Pneumococcal conjugate 13 va lent (Prevnar 13, PCV13) 2mo and older 07/18/2015 Pneumococcal conjugate 20 va lent (Prevnar 20, PCV 20) 2mo and older 12/01/2022 Pneumococcal polysaccharide 23 valent (Pneumovax 23) 2yo and older 04/08/2019,04/08/2019 RSV, bivalent, protein subun it RSVpreF, 0.5mL, Preservative Free (Arexvy) 60yo and older 07/18/2023 Tdap Tetanus diptheria acell ular pertussis (Boostrix; Adacel) 7yo and older 09/17/2019 Zoster recombinant (Shingrix ) 19yo and older 09/17/2020,07/19/2020 Surgical History Surgery Date Site/Laterality Comments HAND SURGERY PROCEDURE: HISTORICAL HAND SURGERY; COMMENT: left hand, ring finger, 2 surgeries LAPAROSCOPIC GASTRIC BANDING PROCEDURE: LAP ADJUSTABLE GASTRIC BAND; COMMENT: pulled out 2007 TOTAL KNEE ARTHROPLASTY Right PROCEDURE: HISTORICAL TOTAL KNEE REPLACE; COMMENT: 2009, right knee FOOT SURGERY Bilateral PROCEDURE: HISTORICAL FOOT SURGERY; COMMENT: all 10 toes straightened; NEOS HIP ARTHROPLASTY 02/22/2018 Right PROCEDURE: HISTORICAL HIP REPLACEMENT; COMMENT: 05/12/2018: Hx dislocation of R hip replacement after a fall off chair, s/p closed reduction in ER. 07/10/2018, admitted for I&D of R hip bursal abscess/cellulitis. OTHER SURGICAL HISTORY 07/10/2018 Right PROCEDURE: INCISION/DRAIN ABSCESS EXTRA; COMMENT: I&D R bursal abscess/cellulitis. (s/p hip replace 02/22/18) BREAST BIOPSY 2012 Left PROCEDURE: BX BREAST; PERC NEEDLE CORE W/IMAG GUID; COMMENT: b9 OTHER SURGICAL HISTORY 06/03/2019 Right PROCEDURE: NE ANES ARTHROSCOPIC TOTAL SHOULDER REPLACEMENT; COMMENT: [place] BREAST REDUCTION PROCEDURE: NE BREAST REDUCTION; COMMENT: 2020 Medical History Medical History Date Comments Anxiety DX:Anxiety GERD (gastroesophageal reflu x disease) DX:GERD (gastroesophageal re flux disease) Cardiomyopathy (CMS/HCC) DX:Card iomyopathy (HCC) TIA (transient ischemic attack) DX:TIA (transient ischemic attack) Depression DX:Depression Osteoarthritis DX:Osteoarthriti s Urinary retention DX:Urinary ret ention; COMMENT: Urinary incontinence at present being followed by urologist Dr. Molina Trigger finger 05/29/2017 DX:Trigger finge r Migraine 05/29/2017 DX:Migraine; COM MENT: Follows with Neurology at [facility] Vitamin D deficiency 09/02/2013 DX:Vitamin D deficiency Prurigo nodularis 05/29/2017 DX:Prurigo nod ularis Primary osteoarthritis of hip 07/27/2017 DX :Primary osteoarthritis of hip Paroxysmal atrial fibrillati on ([facility]) 03/07/2016 DX:Paroxysmal atrial fibrill ation ([facility]) Osteopenia 11/08/2015 DX:Osteopenia Morbid obesity with BMI of 4 0.0-44.9, adult ([facility]) 12/24/2016 DX:Morbid obesity with BMI o f 40.0-44.9, adult ([facility]) Hypothyroidism 01/15/2018 DX:Hypothyroidis m Hypertension 02/04/2018 DX:Hypertension Hyperlipidemia 01/15/2018 DX:Hyperlipidemi a History of MA (myocardial infarction) 05/29/2017 DX:History of MA (myocardial infarction); COMMENT: 3 COPD (chronic obstructive pu lmonary disease) ([facility]) 06/08/2017 DX:COPD (chronic obstructive pulmonary disease) ([facility]) Congestive heart failure ([facility]) 06/08/2017 DX:Congestive heart failure ([facility]) Congenital spondylolisthesis 01/21/2017 DX: Congenital spondylolisthesis Chronic dermatitis 06/08/2017 DX:Chronic de rmatitis Anemia 02/04/2018 DX:Anemia Asthma 12/18/2016 DX:Asthma Bipolar 1 disorder ([facility]) 06/08/2017 DX: Bipolar 1 disorder ([facility]); COMMENT: Patient follows up with Janna Loredo, use to see Dr. Monique in the past Brain aneurysm 05/29/2017 DX:Brain aneurys m; COMMENT: Reported by patient; follows with Neurology at [facility] History of knee replacement, total, right 12/18/2016 DX:History of knee replaceme nt, total, right History of bariatric surgery 05/29/2017 DX: History of bariatric surgery; COMMENT: Lap band CKD (chronic kidney disease) stage 3, GFR 30-59 ml/min ([facility]) DX:CKD (chronic kidney dise ase) stage 3, GFR 30-59 ml/min ([facility]); COMMENT: Dr. Foster Type 2 diabetes mellitus wit h renal manifestations (CMS/HCC) 02/03/2018 DX:Type 2 diabetes mellitus with renal manifestations (HCC) History of total hip replace ment, right 11/12/2018 DX:History of total hip repl acement, right; COMMENT: Done 02/22/2018. 05/12/2018: Hx dislocation of R hip replacement after a fall off chair, s/p closed reduction in ER. 07/10/2018, admitted for I&D of R hip bursal abscess/cellulitis. Glaucoma 11/12/2018 DX:Glaucoma; COM MENT: Dr. Aundrea Harris Aneurysm, carotid artery, internal 12/14/2018 DX:Aneurysm, carotid artery, internal; COMMENT: 3mm, stable last MRA 12/14/18 Generalized anxiety disorder DX: Generalized anxiety disorder Major depressive disorder, r ecurrent episode, moderate (CMS/HCC) DX:Major depressive disord er, recurrent episode, moderate (HCC); COMMENT: Followed by psychiatrist Arthralgia DX:Arthralgia Thoracic back pain DX:Thoracic b ack pain Cervical pain (neck) DX:Cervical pain (neck) Hyponatremia DX:Hyponatremia; COMMENT: Followed by Dr. Foster Takotsubo cardiomyopathy DX:Tako tsubo cardiomyopathy; COMMENT: Followed by Dr. Jen Salcedo Family History Medical History Relation Name Comments Stroke Sister (patient says a ll of her siblings were adopted) Breast cancer Neg Hx Relation Name Status Comments Sister Son 1 Alive Son 2 Alive Social History Tobacco Use Types Packs/Day Years Used Date Smoking Tobacco: Never Smokeless Tobacco: Never Tobacco Cessation:Counseling Given: Not Answered Alcohol Use Standard Drinks/Week Comments No 0 (1 standard drink = 0.6 oz pur e alcohol) Sex and Gender Information Value Date Recorded Sex Assigned at Female 06/27/2024 1:40 PM EST Gender Identity Female 06/27/2024 1:40 PM EST Sexual Orientation Straight 06/30/2024 12 :02 PM EST Job Start Date Occupation Industry Not on file Not on file Not on file Obstetrics History Last Filed Vital Signs Vital Sign Reading Time Taken Comments Blood Pressure 141/99 06/30/2024 11:45 AM EST Pulse 65 06/30/2024 11:45 AM EST Temperature 36.8 ??C (98.2 ??F) 06/30/2024 11:[address] Respiratory Rate 16 06/30/2024 11:45 AM EST Oxygen Saturation 95% 06/30/2024 11:45 AM EST Inhaled Oxygen Concentration - - Weight 83 kg (183 lb) 06/30/2024 11:45 AM EST Height 149.9 cm (4' 11 ) 06/30/2024 11:45 AM EST Body Mass Index 36.96 06/30/2024 11:45 AM EST Plan of Treatment Upcoming Encounters Date Type Department Care Team (Late st Contact Info) Description 09/07/2024 1:30 PM EST Appointment Radiology Department - [address] [phone] 12/28/2024 3:15 PM EDT Office Visit Nephrology - [address] [phone] Eduin Foster MD [address] [facility] [address] [place] [phone] 03/14/2025 4:00 PM EDT Office Visit Adult [facility] - [address] [phone] Sinai Khan PA [address] [place] [id number] Health Maintenance Due Date Last Done Comments Depression Screening 09/06/2020 Falls Risk Assessment 09/06/2020 Medicare Annual Wellness Visit 09/06/2020 Social Influencers of Health Screening 09/06/2020 COVID-19 Vaccine ( season) 2024 11/19/2021, 06/06/2021, 11/12/2020 Diabetes: Annual Foot Exam 05/29/2024 05/29/2023 Diabetes: Annual Urine Albumin-Creatinine Ratio (uACR) 08/12/2024 08/12/2023 Diabetes: Annual Retina Eye Exam 10/11/2024 10/12/2023 Diabetes: Blood Sugar Control Test (HGBA1C) 10/18/2024 04/20/2024, 04/20/2024 Diabetes: Annual GFR (Glomerular Filtration Rate) 04/20/2025 04/20/2024, 04/20/2024, 03/02/2024, Additional history exists Hypertension/CHF/CAD Annual BMP Blood Test 04/20/2025 04/20/2024, 04/20/2024, 03/02/2024, Additional history exists Breast Cancer Screening 09/02/2025 09/02/19, 01/26/2023, 08/14/2022, Additional history exists Cholesterol Screening (Lipid Panel) 04/20/2029 04/20/2024, 04/20/2024 DTaP,Tdap,and Td Vaccines (2 - Td or Tdap) 09/17/2029 09/17/2019 Colorectal Cancer Screening: Colonoscopy 10/12/2029 10/13/2019 Osteoporosis Screening (Bone Density Screening) 09/24/2033 09/24/2023, 10/25/2020 Hepatitis C Screening Completed 05/28/2017 Zoster Vaccines Completed 09/17/2020, 07/19/2020 Pneumococcal Vaccine: 65+ Years Completed 12/01/2022, 04/08/2019, 04/08/2019, Additional history exists RSV Immunization Patients 60+ Years Old Completed 07/18/2023 Influenza Vaccine Completed 03/12/2024, , 2022, Additional history exists HIB Vaccines Aged Out No longer eligi ble based on patient's age to complete this topic HPV Vaccines Aged Out No longer eligi ble based on patient's age to complete this topic Hepatitis A Vaccines Aged Out No long er eligible based on patient's age to complete this topic Hepatitis B Vaccines Aged Out No long er eligible based on patient's age to complete this topic IPV Vaccines Aged Out No longer eligi ble based on patient's age to complete this topic MMR Vaccines Aged Out No longer eligi ble based on patient's age to complete this topic Meningococcal ACWY Vaccine Aged Out N o longer eligible based on patient's age to complete this topic RSV Immunization Patients Under 20 months Aged Out No longer eligible based on patient's age to complete this topic Varicella Vaccines Aged Out No longer eligible based on patient's age to complete this topic Procedures Procedure Name Priority Date/Time Associated Diagnosis Comments XR KNEE 4+ VIEWS LEFT STAT 06/30/2024 1:04 PM EST ANNUAL BMP BLOOD TEST Routine 04/20/2024 HEMOGLOBIN A1C Routine 04/20/2024 LIPID PANEL Routine 04/20/2024 DIABETES EYE EXAM Routine 10/12/2023 DXA BONE DENSITY STUDY 1+ SITS AXIAL SKEL Routine 09/24/2023 3:21 PM EST Other specified disorders of bone density and structure, unspecified site DIAGNOSTIC MAMMOGRAPHY INCLUDING CAD BILATERAL Routine 09/02/2023 2:42 PM EST Encounter for screening mammogram for malignant neoplasm of breast Mammographic microcalcification found on diagnostic imaging of breast URINE ALBUMIN CREATININE RATIO Routine 08/12/2023 DIABETES FOOT EXAM Routine 05/29/2023 COLONOSCOPY Routine 10/13/2019 HEPATITIS C SCREENING Routine 05/28/2017 from Last 3 Months or Most Recently Relevant to Health Maintenance Results * XR Knee 4+ Views Left (06/30/2024 1:04 PM EST) Anatomical Region Laterality Modality Lower Extremities, Knee [facility] 06/30/2024 1:11 PM EST Impressions 06/30/2024 1:15 PM EST FINDINGS/IMPRESSION: Left knee arthroplasty in anatomic alignment. ??No fracture or evidence of loosening. ??No joint effusion. ??Prepatellar soft tissue swelling. ??Arterial calcifications. -------- FINAL REPORT -------- Dictated By: GAVIN MARRERO Dictated Date: 06/30/2024 13:11 ET Assigned Physician: GAVIN MARRERO Reviewed and Electronically Signed By: GAVIN MARRERO Signed Date: 06/30/2024 13:15 ET Workstation ID: [id number] Transcribed By: Self Edit Transcribed Date: 06/30/2024 13:11 ET Narrative 06/30/2024 1:15 PM EST XR KNEE 4+ VIEWS LEFT INDICATION: ??Pain TECHNIQUE: XR KNEE 4+ VIEWS LEFT COMPARISON: No priors available. Procedure Note Gavin Marrero MD - 06/30/2024 XR KNEE 4+ VIEWS LEFT INDICATION: Pain TECHNIQUE: XR KNEE 4+ VIEWS LEFT COMPARISON: No priors available. IMPRESSION: FINDINGS/IMPRESSION: Left knee arthroplasty in anatomic alignment. Nofracture or evidence of loosening. No joint effusion. Prepatellar softtissue swelling. Arterial calcifications. -------- FINAL REPORT -------- Dictated By: GAVIN MARRERO Dictated Date: 06/30/2024 13:11 ET Assigned Physician: GAVIN MARRERO Reviewed and Electronically Signed By: GAVIN MARRERO Signed Date: 06/30/2024 13:15 ET Workstation ID: [id number] Transcribed By: Self Edit Transcribed Date: 06/30/2024 13:11 ET Gabriel Simms MD IMG XR PROCEDURES * Annual BMP Blood Test (04/20/2024) [facility] Annual BMP Blood Test abstracted Historical Provider [facility] EMMIE E * Hemoglobin A1c (04/20/2024) [facility] Hemoglobin A1C 6.0 6.5 % Blood Venous blood specimen / Unknown Historical Provider LAB BLOOD ORDERAB LES * Lipid panel (04/20/2024) [facility] LDL/HDL Ratio 2 0 - 4 Triglycerides 36 0 - 150 mg/dL Cholesterol 124 0 - 200 mg/dL HDL 85 40 mg/dL LDL Cholesterol 32 0 - 100 mg/dL Blood Venous blood specimen / Unknown Historical Provider LAB BLOOD ORDERAB LES * Diabetes Eye Exam (10/12/2023) Diabetes: Annual Retina Eye Exam abstracted Historical Provider MD JANNETH Medina * DXA BONE DENSITY STUDY 1+ SITS AXIAL SKEL (09/24/2023 3:21 PM EST) Anatomical Region Laterality Modality Bone Densitometr y 05/29/2023 11:1 9 AM EDT Narrative 09/24/2023 6:25 PM EST BONE DENSITY ? Lumbar Spine T-score is -0.6 ?? (SD relative to 20-29 y/o adult) Z-score is +1.5 ??(SD relative to age matched peers) This is normal by criteria defined by the WHO. Left Hip T-score is -2.0 Z-score is -0.2 This is consistent with osteopenia by criteria defined by the WHO. Impression: Based on the World Health Organization criteria, Rose Noyola should be classified as having osteopenia. This patient has a< 0.1% risk of major osteoporotic fracture and a< 0.1% risk of hip fracture over the next 10 years. (World Health Organization Fracture Risk Assessment) [facility] Department of Internal Medicine recommends using National Osteoporosis Foundation (NOF) guidelines in treatment decisions related to osteoporosis. NOF guidelines suggest considering treatment for postmenopausal women and men aged 50 or older presenting with the following: History of hip or vertebral fracture. T-score less than or equal to -2.5 (DXA) at the femoral neck, total hip, or spine, after appropriate evaluation to exclude secondary causes. Low bone mass (T-score between -1.0 and -2.5 at the femoral neck or spine) AND a 10-year probability of a hip fracture greater than or equal to 3% OR a 10-year probability of a major osteoporosis-related fracture greater than or equal to 20% based on the [place]-adapted WHO algorithm Please note that all treatment decisions require clinical judgment and consideration of individual patient factors, including patient preferences, co-morbidities, previous drug use, risk factors not captured in the FRAX model (e.g., frailty, falls, vitamin D deficiency, increased bone turnover, interval significant decline in bone density) and possible under- or over-estimation of fracture risk by FRAX. Procedure Note Summer Iglesias MD - 03/28/2024 BONE DENSITY Lumbar Spine T-score is -0.6 (SD relative to 20-29 y/o adult) Z-score is +1.5 (SD relative to age matched peers) This is normal by criteria defined by the WHO. Left Hip T-score is -2.0 Z-score is -0.2 This is consistent with osteopenia by criteria defined by the WHO. Impression: Based on the World Health Organization criteria, Rose Noyola shouldbe classified as having osteopenia. This patient has a< 0.1% risk of majorosteoporotic fracture and a< 0.1% risk of hip fracture over the next 10years. (World Health Organization Fracture Risk Assessment) [facility] Department of Internal Medicine recommendsusing National Osteoporosis Foundation (NOF) guidelines in treatmentdecisions related to osteoporosis. NOF guidelines suggest consideringtreatment for postmenopausal women and men aged 50 or older presentingwith the following: History of hip or vertebral fracture. T-score less than or equal to -2.5 (DXA) at the femoral neck, total hip,or spine, after appropriate evaluation to exclude secondary causes. Low bone mass (T-score between -1.0 and -2.5 at the femoral neck or spine)AND a 10-year probability of a hip fracture greater than or equal to 3% ORa 10-year probability of a major osteoporosis-related fracture greaterthan or equal to 20% based on the [place]-adapted WHO algorithm Please note that all treatment decisions require clinical judgment andconsideration of individual patient factors, including patientpreferences, co-morbidities, previous drug use, risk factors not capturedin the FRAX model (e.g., frailty, falls, vitamin D deficiency, increasedbone turnover, interval significant decline in bone density) and possibleunder- or over-estimation of fracture risk by FRAX. [facility] IMG DXA PROCEDUR ES * DIAGNOSTIC MAMMOGRAPHY INCLUDING CAD BILATERAL (09/02/2023 2:42 PM EST) Anatomical Region Laterality Modality Mammography 08/07/2022 10:2 0 AM EST Narrative 09/02/2023 2:45 PM EST This is a summary report. The complete report is available in the patient's medical record. If you cannot access the medical record, please contact the sending organization for a detailed fax or copy. BILATERAL 3D DIGITAL DIAGNOSTIC MAMMOGRAM History: Follow-up for upper inner coarse calcifications of the left breast, history of breast reduction Comparison: Multiple priors dating back to 09/02/2013 Technique: Bilateral full-field digital 3D mammography was performed using standard CC and MLO projections, left breast CC and ML magnification views, left breast cleavage view CAD was used to evaluate this mammogram. Findings: Density: ??There are scattered areas of fibroglandular density-B RIGHT: No suspicious masses, groups of microcalcification or areas of architectural distortion identified. Stable typically benign parenchymal asymmetries LEFT: Upper inner coarse calcifications are morphologically stable No new suspicious findings are identified. IMPRESSION: : 1. ??Right: No mammographic evidence of malignancy. 2. ??Left: Upper inner coarse calcifications are morphologically stable BI-RADS Category 3 probably benign Recommendation: CC and ML magnification views of the left breast in 1 year Procedure Note Dariusz Monk MD - 03/28/2024 This is a summary report. The complete report is available in thepatient's medical record. If you cannot access the medical record, pleasecontact the sending organization for a detailed fax or copy. BILATERAL 3D DIGITAL DIAGNOSTIC MAMMOGRAM History: Follow-up for upper inner coarse calcifications of the leftbreast, history of breast reduction Comparison: Multiple priors dating back to 09/02/2013 Technique: Bilateral full-field digital 3D mammography was performed usingstandard CC and MLO projections, left breast CC and ML magnificationviews, left breast cleavage view CAD was used to evaluate this mammogram. Findings: Density: There are scattered areas of fibroglandular density-B RIGHT: No suspicious masses, groups of microcalcification or areas ofarchitectural distortion identified. Stable typically benign parenchymalasymmetries LEFT: Upper inner coarse calcifications are morphologically stable No new suspicious findings are identified. IMPRESSION: : 1. Right: No mammographic evidence of malignancy. 2. Left: Upper inner coarse calcifications are morphologically stable BI-RADS Category 3 probably benign Recommendation: CC and ML magnification views of the left breast in 1year Stevan Mosquera MD IMG BI PROCEDURES * Urine Albumin Creatinine Ratio (08/12/2023) [facility] Urine Albumin Creatinine Ratio abstracted Historical Provider [facility] * Diabetes Foot Exam (05/29/2023) [facility] Diabetes: Annual Foot Exam abstracted Historical Provider [facility] * Colonoscopy (10/13/2019) [facility] Colonoscopy no interpretation , abstracted Anatomical Region Laterality Modality Other Historical Provider [facility] * Hepatitis C Screening (05/28/2017) [facility] Hepatitis C Screening abstracted Historical Provider [facility] Last 3 Months or Most Recently Relevant to Health Maintenance Advance Directives Documents on File Type Date Recorded 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 Health Care Decision (hx) 04/10/2022 AD CONCEPCION DIRECTIVE Health Care Decision (hx) 04/10/2022 AD CONCEPCION DIRECTIVE Health Care Decision (hx) 04/10/2022 AD CONCEPCION DIRECTIVE Health Care Decision (hx) 04/10/2022 AD CONCEPCION DIRECTIVE Health Care Decision (hx) 04/10/2022 AD CONCEPCION DIRECTIVE Health Care Decision (hx) 04/10/2022 AD CONCEPCION DIRECTIVE Health Care Decision (hx) 04/10/2022 AD CONCEPCION DIRECTIVE Health Care Decision (hx) 04/10/2022 AD CONCEPCION DIRECTIVE Health Care Decision (hx) 04/10/2022 AD CONCEPCION DIRECTIVE Health Care Decision (hx) 07/09/2018 AD CONCEPCION DIRECTIVE Health Care Decision (hx) 07/09/2018 AD CONCEPCION DIRECTIVE Health Care Decision (hx) 07/09/2018 AD CONCEPCION DIRECTIVE Health Care Decision (hx) 07/09/2018 AD CONCEPCION DIRECTIVE Health Care Decision (hx) 07/09/2018 AD CONCEPCION DIRECTIVE Health Care Decision (hx) 07/09/2018 AD CONCEPCION DIRECTIVE Health Care Decision (hx) 07/09/2018 AD CONCEPCION DIRECTIVE Health Care Decision (hx) 07/09/2018 AD CONCEPCION DIRECTIVE Health Care Decision (hx) 07/09/2018 AD CONCEPCION DIRECTIVE Health Care Decision (hx) 07/09/2018 AD CONCEPCION DIRECTIVE Health Care Decision (hx) 07/09/2018 AD CONCEPCION DIRECTIVE Health Care Decision (hx) 07/09/2018 AD CONCEPCION DIRECTIVE Health Care Decision (hx) 07/09/2018 AD CONCEPCION DIRECTIVE Health Care Decision (hx) 07/09/2018 AD CONCEPCION DIRECTIVE Health Care Decision (hx) 07/09/2018 AD CONCEPCION DIRECTIVE Health Care Decision (hx) 07/09/2018 AD CONCEPCION DIRECTIVE Health Care Decision (hx) 07/09/2018 AD CONCEPCION DIRECTIVE Health Care Decision (hx) 07/09/2018 AD CONCEPCION DIRECTIVE Health Care Decision (hx) 08/17/2014 AD CONCEPCION DIRECTIVE Health Care Decision (hx) 08/17/2014 AD CONCEPCION DIRECTIVE Health Care Decision (hx) 08/17/2014 AD CONCEPCION DIRECTIVE Health Care Decision (hx) 08/17/2014 AD CONCEPCION DIRECTIVE Health Care Decision (hx) 08/17/2014 AD CONCEPCOIN DIRECTIVE Health Care Decision (hx) 08/17/2014 AD CONCEPCION DIRECTIVE Health Care Decision (hx) 08/17/2014 AD CONCEPCION DIRECTIVE Health Care Decision (hx) 08/17/2014 AD CONCEPCION DIRECTIVE Health Care Decision (hx) 08/17/2014 AD CONCEPCION DIRECTIVE Health Care Decision (hx) 08/17/2014 AD CONCEPCION DIRECTIVE Health Care Decision (hx) 08/17/2014 AD CONCEPCION DIRECTIVE Health Care Decision (hx) 08/17/2014 AD CONCEPCION DIRECTIVE Health Care Decision (hx) 08/17/2014 AD CONCEPCION DIRECTIVE Health Care Decision (hx) 08/17/2014 AD CONCEPCION DIRECTIVE Health Care Decision (hx) 08/17/2014 AD CONCEPCION DIRECTIVE Health Care Decision (hx) 08/17/2014 AD CONCEPCION DIRECTIVE Health Care Decision (hx) 08/17/2014 AD CONCEPCION DIRECTIVE Health Care Decision (hx) 08/17/2014 AD CONCEPCION DIRECTIVE Health Care Decision (hx) 05/12/2012 AD CONCEPCION DIRECTIVE Health Care Decision (hx) 05/12/2012 AD CONCEPCION DIRECTIVE Health Care Decision (hx) 05/12/2012 AD CONCEPCION DIRECTIVE Health Care Decision (hx) 05/12/2012 AD CONCEPCION DIRECTIVE Health Care Decision (hx) 05/12/2012 AD CONCEPCION DIRECTIVE Health Care Decision (hx) 05/12/2012 AD CONCEPCION DIRECTIVE Health Care Decision (hx) 05/12/2012 AD CONCEPCION DIRECTIVE Health Care Decision (hx) 05/12/2012 AD CONCEPCION DIRECTIVE Health Care Decision (hx) 05/12/2012 AD CONCEPCION DIRECTIVE Health Care Decision (hx) 05/12/2012 AD CONCEPCION DIRECTIVE Health Care Decision (hx) 05/12/2012 AD CONCEPCION DIRECTIVE Health Care Decision (hx) 05/12/2012 AD CONCEPCION DIRECTIVE Health Care Decision (hx) 05/12/2012 AD CONCEPCION DIRECTIVE Health Care Decision (hx) 05/12/2012 AD CONCEPCION DIRECTIVE Health Care Decision (hx) 05/12/2012 AD CONCEPCION DIRECTIVE Health Care Decision (hx) 05/12/2012 AD CONCEPCION DIRECTIVE Health Care Decision (hx) 05/12/2012 AD CONCEPCION DIRECTIVE Health Care Decision (hx) 05/12/2012 AD CONCEPCION DIRECTIVE Care Teams Hospital Scientist Relationship Specialty Start Date End Date Stevan Mosquera MD [address] [place] [address] PCP - General Internal Medicine 12/25/21
--- OUTSIDE RECORDS SUMMARY | 2024-09-05 17:39 | XMS_ITS | Encounter Summary ---
Author Organization [facility] Address [address] [place] [address] Care Team Providers Care Cell Lead Name Role Phone Stevan Mosquera MD Primary Care Provider [phone] Reason for Referral * Consultation (Routine) - Authorized Specialty Diagnoses / Procedures Referred By Contact Referred To Contact Physical Medicine and Rehabilitation Diagnoses Chronic midline low back pain without sciatica Chronic pain of left knee Stevan Mosquera MD [address] [place] [address] Quan Rojas MD [address] [place] [phone] Referral ID Status Reason Start Date Expiration Date Visits Requested Visits Authorized [id number] Authorized Specialty Services Required 07/27/2025 12 12 Scheduling Instructions Request for an insurance referral Caller: n/a Office: [facility] Insurance: [facility] ID: [id number] Provider: Joyce Rojas DOS: 07/27/24 Visits: 12 Dx code: M25.561 Fax: [phone] Reason for Visit * Reason Onset Date Comments INSURANCE PRIO AUTH 08/04/2024 Referral 08/04/2024 Referral for [facility] Encounter Details Date Type Department Care Team ([facility] Contact Info) Description 08/04/2024 Telephone Adult Medicine [address], [place] [phone] Stevan Mosquera MD [address] [place] [id number] INSURANCE PRIO AUTH; Referral (Referral for [facility]) Social History Tobacco Use Types Packs/Day Years [...] as of this encounter Progress Notes * Franchesca Nolan MA - 08/23/2024 8:37 AM EST Pt was inform about referral * Stevan Mosquera MD - 08/22/2024 11:08 AM EST New PT referral is ordered with the information provided. * Dariana Rosas - 08/16/2024 9:01 AM EST Request for an insurance referral Caller: n/a Office: [facility] Insurance: [facility] ID: [id number] Provider: Joyce Rojas DOS: 07/27/24 Visits: 12 Dx code: M25.561 IMPORTANT Pls copy and paste this into the order. Otherwise, it will not be processed as an ins referral * Jae Longoria MA - 08/04/2024 12:58 PM EST What is the prior auth for? * Jewels Sanchez - 08/04/2024 10:10 AM EST SPOKE WITH RODOLFO FROM [facility] ([phone]) HE PUT A INSURANCE REQUEST IN EARLY LAST MONTH. GAVE FAX NUMBER AND INSTRUCTED TO FAX AGAIN. [facility] WAITING FOR PRIO AUTH APPROVAL TO BE FAXED BACK TO [facility] TO FAX NUMBER [phone]. documented in this encounter Plan of Treatment Upcoming Encounters Date Type Department Care Team (Late st Contact Info) Description 09/07/2024 1:30 PM EST Appointment Radiology Department - [address] [phone] 12/28/2024 3:15 PM EDT Office Visit Nephrology - [address] [phone] Eduin Foster MD [address] [facility] [address] [place] [address] 03/14/2025 4:00 PM EDT Office Visit Adult Medicine [place] - [address] [phone] [facility] [address] [place] [address] Scheduled Referrals Name Type Priority Associated Diagnoses Order Schedule Ambulatory referral to Physical Medicine Rehab Outpatient Referral Routine Chronic midline low back pain without sciatica Chronic pain of left knee 1 Occurrences starting 08/22/2024 until 08/22/2025 documented as of this encounter Visit Diagnoses Diagnosis Chronic midline low back pain without sciatica- Primary Chronic pain of left knee documented in this encounter Care Teams Cell Lead Relationship Specialty Start Date End Date Stevan Mosquera MD [address] [place] [address] PCP - General Internal Medicine 12/25/21 documented as of this encounter
--- OUTSIDE RECORDS SUMMARY | 2024-09-05 17:39 | XMS_ITS | Clinical Summary ---
Author Organization [facility], Address [address] [place] [address] Phone Care Team Providers Care Remote Recruiter Name Role Phone Kayla Mares DO Primary Care Pro vider Allergies Active Allergy Reactions Criticality Noted Date Comments Iodinated Contrast Media Rash High 12/04/2020 Sumatriptan 11/20/2020 Lisinopril 11/20/2020 Medications Calcium Carb-Cholecalcif adela 600-100 MG-UNIT capsule Take by mouth Active OXYBUTYNIN CHLORIDE ER PO Take by mouth A ctive Bacillus Coagulans-Inulin (Probiotic) 1-250 BILLION-MG capsule Take by mouth Active VITAMIN A-VITAMIN D-MINERALS PO Take by mouth Ac tive albuterol HFA (PROVENTIL HFA;VENTOLIN HFA) 108 (90 Base) MCG/ACT inhaler Inhale 2 puffs every 6 (six) hours if needed Active amoxicillin (AMOXIL) 500 MG tablet Take 4 tabs 1 hour prior to dental appointment 8 Active ascorbic acid (VITAMIN C) 1000 MG tablet Take 1,000 mg by mouth 1 (one) time each day Active aspirin (ST PATRICK) 81 MG EC tablet Take 81 mg by mouth 1 (one) time each day Active atorvastatin (LIPITOR) 20 MG tablet Take 20 mg by mouth at bed time 1 Active betamethasone dipropionate 0.05 % cream Apply topically 2 (two) times a day Active calcitriol (ROCALTROL) 0.25 MCG capsule TAKE 1 CAPSULE BY MOUTH EVERY OTHER DAY 1 Active camphor-menthol (SARNA) lotion Apply topically Active cholecalciferol (VITAMIN D-3) 25 MCG (1000 UT) tablet Take 1,000 Units by mouth 1 (one) time each day Active clotrimazole-bet amethasone (LOTRISONE) cream Apply topically 2 (two) times a day Active diazePAM (VALIUM) 5 MG tablet Take 5 mg by mouth every 6 (six) hours if needed Active Diclofenac Sodium 1 % gel Place on the skin Active doxycycline (VIBRA-TABS) 100 MG tablet Take 1 tablet by mouth 2 (two) times a day 8 Active ferrous sulfate 325 (65 Fe) MG tablet Take 325 mg by mouth Active FLUoxetine (PROzac) 20 MG capsule TAKE 1 CAPSULE BY MOUTH DAILY DIRECTED 1 Active fluticasone HFA (FLOVENT HFA) 110 MCG/ACT inhaler Inhale 1 puff Active gabapentin (NEURONTIN) 300 MG capsule Take 300 mg by mouth 3 times a day Active hydrOXYzine (ATARAX) 25 MG tablet Take by mouth Active ibuprofen (ADVIL,MOTRIN) 800 MG tablet TAKE 1 TABLET BY MOUTH THREE TIMES DAILY NEEDED FOR PAIN 1 Active ipratropium-albu terol (DUO-NEB) 0.5-2.5 mg/3 mL nebulizer solution Inhale 3 mL Active Vitamins C E (Cranberry Urinary Comfort) 100-3 MG-UNIT capsule Take by mouth Active MEDICINAL MARIJUANA CBD oil 0.5 dropper fill daily in the am Active MULTIPLE VITAMINS PO Take 1 tablet by mouth Active latanoprost (XALATAN) 0.005 % ophthalmic solution INSTILL 1 DROP INTO BOTH EYES EVERY NIGHT AT BEDTIME 1 Active levothyroxine (SYNTHROID, LEVOTHROID) 75 MCG tablet Take 1 tablet by mouth 1 (one) time each day 1 Active Magnesium 250 MG tablet Take by mouth Active methocarbamol (ROBAXIN) 500 MG tablet Take 500 mg by mouth Active mupirocin (BACTROBAN) 2 % ointment Apply topically 3 times a day Active Naloxone HCl 4 MG/0.1ML liquid Administer 1 mL into affected nostril(s) 8 Active nitrofurantoin (MACRODANTIN) 100 MG capsule Take 100 mg by mouth Active nitroglycerin (NITROSTAT) 0.[address] 0.4 mg under the tongue Active omeprazole (PriLOSEC) [address] capsule Take 1 capsule by mouth 1 (one) time each day 1 Active predniSONE (DELTASONE) 10 MG tablet Take by mouth Active propranolol (INDERAL) 80 MG tablet Take 80 mg by mouth Active tolterodine LA (DETROL LA) 4 MG 24 hr capsule Take 4 mg by mouth 1 Active triamcinolone (KENALOG) 0.1 % cream Apply topically 2 (two) times a day Active Zinc 50 MG capsule Take by mouth Active Active Problems Problem Noted Date Diagnosed Date Anxiety 12/04/2020 Chronic kidney disease stage 3 12/04/2020 Neck pain 12/04/2020 Pain in joint 12/04/2020 Recurrent major depressive episodes, moderate Urinary incontinence 12/04/2020 Preoperative cardiovascular examination 11/23/19 21 Overview (12/04/2020): Last Assessment & Plan: Feeling well, no ischemic or heart failure symptoms. She completes at least 4.0 METS daily without any difficulties. She is able to complete household work such as making the bed, laundry, and groceries, even despite her back pain. She is able to climb the stairs at her house. She has grandchildren that she runs around after. She has undergone multiple surgeries and tolerated these well. No new or concerning symptoms, no testing needed prior to surgery. She is an acceptable risk to go forth with this. Large breast 08/15/2019 Primary osteoarthritis of right shoulder 019 Aneurysm of internal carotid artery 12/14/2018 Overview (12/04/2020): 3mm, stable last MRA 12/14/18 Glaucoma 11/12/2018 Overview (12/04/2020): Dr. Aundrea Marina History of total replacement of right hip joint 11/12/2018 Overview (12/04/2020): Done 02/22/2018. 05/12/2018: Hx dislocation of R hip replacement after a fall off chair, s/p closed reduction in ER. 07/10/2018, admitted for I&D of R hip bursal abscess/cellulitis. Hypertension 02/04/2018 Overview (12/04/2020): Last Assessment & Plan: Controlled, continue current regimen. Type 2 diabetes mellitus with renal manifestatio ns 02/03/2018 Hyperlipidemia 01/15/2018 Overview (12/04/2020): Last Assessment & Plan: Last lipid panel 08/30 total cholesterol 201, HDL 65, LDL 116. She tells me this is when she was started on her statin. And is due for repeat blood work within the next month or 2. Her PCP is following this. Hypothyroidism 01/15/2018 Chronic dermatitis 06/08/2017 Overview (12/04/2020): F/u Dr. Rodriguez Chronic obstructive pulmonary disease 06/08/2017 Gastroesophageal reflux disease 06/08/2017 Cerebral aneurysm 05/29/2017 Overview (12/04/2020): Reported by patient; follows with Neurology at [facility] Migraine 05/29/2017 Overview (12/04/2020): Follows with Neurology at [facility] Prurigo nodularis 05/29/2017 Arthritis of right hip 05/21/2017 Congenital spondylolisthesis 01/21/2017 Body mass index 40+ - severely obese 12/24/2016 Asthma 12/18/2016 Depressive disorder 12/18/2016 Takotsubo cardiomyopathy 03/07/2016 Overview (12/04/2020): followed by [facility] Cardiology Dr. Salcedo Last Assessment & Plan: Or heart failure symptoms, normal coronaries via cardiac catheterization back in 2011, normal echocardiogram and stress test. Osteopenia 11/08/2015 Social History Tobacco Use Types Packs/Day Years Used Date Smoking Tobacco: Never Assessed Comments Unknown Sex and Gender Information Value Date Recorded Sex Assigned at Not on file Legal Sex Female 9:35 AM EDT Gender Identity Not on file Sexual Orientation Not on file Last Filed Vital Signs Vital Sign Reading Time Taken Comments Blood Pressure 131/83 12/04/2020 10:50 AM EDT Pulse 90 12/04/2020 10:50 AM EDT Temperature 36.1 ??C (97 ??F) 12/04/2020 10:50 AM EDT Respiratory Rate - - Oxygen Saturation - - Inhaled Oxygen Concentration - - Weight 86.2 kg (190 lb) 12/04/2020 10:50 AM EDT Height 152.4 cm (5') 12/04/2020 10:50 AM EDT Body Mass Index 37.11 12/04/2020 10:50 AM EDT Plan of Treatment Health Maintenance Due Date Last Done Comments Breast Cancer Screening 1955 Colorectal Cancer Screening: Annual FOBT 2002 Colorectal Cancer Screening: Colonoscopy 2002 Colorectal Cancer Screening: Sigmoidoscopy 2002 Pneumococcal Vaccine: 65+ Ye ars (2 of 2 - PPSV23 or PCV20) 09/12/2015 07/18/2015 Diabetes: Ophthalmology Exam 12/04/2020 Diabetes: Pedal Pulse Checked 12/04/2020 Diabetes: Sensory Foot Exam 12/04/2020 Diabetes: Visual Foot Exam 12/04/2020 Diabetes: Hemoglobin A1C 12/05/2020 09/06/2020 Influenza Vaccine (#1) 2024 Hepatitis B Vaccine Aged Out No longe r eligible based on patient's age to complete this topic Insurance [place] [address] Care Teams Remote Recruiter Relationship Specialty Start Date End Date Kayla Mares DO PCP - General Internal Medicine 12/04/20
== END 2024-09-05 13:41 | disposition home or self-care (01) ==
PROVIDERS: PCP Internal Medicine; Referring Provider Orthopaedic Surgery; Visit Provider Internal Medicine
DX: M25.561 Pain in right knee (principal); M25.562 Pain in left knee; G89.29 Other chronic pain
CPT/HCPCS: 99204

== ENCOUNTER → 2024-09-05 13:01 | Outpatient (BNVA) | payer MEDICARE, SELFPAY | PROVIDERS: PCP Internal Medicine; Referring Provider Orthopaedic Surgery; Visit Provider Internal Medicine | DX: M25.561 Pain in right knee (principal); M25.562 Pain in left knee; G89.29 Other chronic pain; Z96.652 Presence of left artificial knee joint | CPT/HCPCS: 99202 ==

== ENCOUNTER 2024-10-27 06:27 | Outpatient (REF) | payer MEDICARE, SELFPAY | END 2024-10-27 06:28 | disposition home or self-care (01) | LOC: CF 06:27 | PROVIDERS: Visit Provider Internal Medicine | DX: M25.561 Pain in right knee (principal); M25.562 Pain in left knee; G89.29 Other chronic pain | CPT/HCPCS: 64555; C1778; J2003; J2795; Q9967 ==

== ENCOUNTER 2024-10-27 13:08 | Outpatient (AMB) | payer MEDICARE, SELFPAY ==
[2024-10-27 13:17] VITALS: BP 140/81; PULSE 76; RESP 16; O2SAT 98
--- NOTE | 2024-10-27 13:17 | A.OFFVIS_ITS ---
Vital Signs 10/27/24 13:17 BP 140/81 H Blood Pressure Location Lt brachial Position Sitting Respiration 16 Pulse 76 Pulse Source Pulse Oximeter Pulse Oximetry (%) 98 Oxygen Delivery Method Room Air Intake Visit Reasons: Left saphenous Sprint Door Fitter Required: No Allergies Iodinated Contrast Media [IV CONTRAST] Allergy (Severe, Verified 11/02/24 13:26) ANAPHYLAXIS sumatriptan [From IMITREX] Allergy (Severe, Verified 11/02/24 13:26) PT STATES CAUSED [place] adhesive tape [ADHESIVE TAPE] Allergy (Intermediate, Verified 11/02/24 13:26) SKIN BLISTERS lisinopril [LISINOPRIL] Allergy (Mild, Verified 11/02/24 13:26) COUGH ciprofloxacin [CIPROFLOXACIN] Allergy (Unknown, Verified 11/02/24 13:26) RASH AND ITCHING 1st Relief [place] Allergy (Unknown, Uncoded 11/02/24 13:26) unknown Iodinated I 131 Albumin Allergy (Unknown, Uncoded 11/02/24 13:26) unknown Medication List - Last Reconciled 10/27/24 by Pilar Barron LPN albuterol sulfate 90 mcg/actuation 2 puffs inhalation Q4H PRN ascorbic acid (vitamin C) 1 g PO Q6H aspirin (Adult Low Dose Aspirin) 81 mg PO DAILY atorvastatin 20 mg PO DAILY blood sugar diagnostic ([place] Verio test strips) As directed bupropion HCl 125 mg PO QAM calcitriol 0.25 mcg PO DAILY cholecalciferol (vitamin D3) 25 mcg PO DAILY furosemide 20 mg PO DAILY PRN gabapentin mg PO BID hydroxyzine HCl 25 mg PO TID PRN lancets ([employer] Delica Plus Lancet) As directed latanoprost 0.005% 1 drp ophthalmic (eye) BEDTIME levothyroxine mcg PO metoprolol succinate ER 50 mg PO DAILY nystatin topical QID PRN omeprazole 20 mg PO DAILY oxycodone 2.5 mg PO BID PRN trazodone 100 mg PO BEDTIME vibegron (Gemtesa) 75 mg PO DAILY HPI HPI Left saphenous Sprint: Details: Patient presents for scheduled procedure. Denies any recent cough, cold, infection, fever or other significant changes in medical history since last office visit. [facility] Medical History (Reviewed 11/02/24 @ 14:20 by Anjelica Alston, PIPELINE INTEGRITY ENGINEER, AUTOMOBILE BRAKES BONDER) Lumbar radiculopathy Surgical History Status post replacement of right shoulder joint Social History Alcohol intake: never Patient Tobacco Use Status: Never used Tobacco Current occupational status: employed and retired Physical Exam Vital Signs: Last Vital Signs Pulse 76 10/27/24 13:17 Resp 16 10/27/24 13:17 BP 140/81 H 10/27/24 13:17 Pulse Ox 98 10/27/24 13:17 Oxygen Delivery Method Room Air 10/27/24 13:17 Office Procedures Details: Peripheral Nerve Stimulation Temporary Lead Placement, Ultrasound-Guided, Saphenous Nerve, LEFT ? After the risks, benefits and alternatives were discussed with the patient and informed consent was obtained, patient was placed in the supine position and padded to foster comfort. Appropriate skin and bony landmarks were identified, and pertinent vascular structures were located. The skin overlying the needle entry site was prepped and draped in sterile fashion. Ultrasound was used to identify the femoral artery, the femoral vein and the saphenous nerve. After identifying and marking the intended target along the course of the saphenous nerve, the skin around the planned entry point and the subcutaneous tissues were injected with local anesthetic. An introducer needle and stimulating probe were assembled, inserted and advanced along the intended course of the saphenous nerve, taking care to maintain the proper depth of insertion as the introducer was advanced under ultrasound guidance. The introducer needle was delivered to a location in proximity to the nerve taking care not to puncture the femoral artery or the vein. Multiple stimulation parameters were used to deliver stimulation to the saphenous nerve in concert with stimulating at multiple positions around the nerve. Nerve target acquisition was confirmed noting generation of sensory and mild motor effects (paresthesia, muscle tension, etc) in the medial knee, leg and ankle; corresponding to the distribution of the saphenous nerve. Various electrical parameter combinations were tested, and the lead location was adjusted (physically relocated under ultrasound guidance) until the patient indicated medial knee paresthesia and tension overlapping the distribution of the patient?s typical region of pain. The stimulating probe was removed from the introducer and a percutaneous lead was guided through the needle and delivered to a location in similar proximity to the nerve. Final location was verified with electrical stimulation and documented. The introducer needle was removed, and the exposed end of the percutaneous lead was attached to an external stimulator unit. Various electrical parameter combinations were again tested until the patient indicated paresthesia and muscle tension overlapping the distribution of the patient?s typical region of pain. After confirming that lead impedance was in the normal range, the external unit was detached, the needle was removed, and the lead was anchored at the skin. The lead was threaded into the connector block and electrical continuity and desired patient response was confirmed. The connector block was attached to the external stimulator unit. The site was covered with a sterile occlusive dressing. A final ultrasound image was taken to document final placement. The patient was observed for stability of vital signs and comfort. Sprint PNS Device: Sprint PNS Device [id number] Percutaneous Peripheral Neuroelectrode Procedure: 18248 - Percutaneous Peripheral Neuroelectrode Procedure code (CPT) selection complete Office Meds lidocaine HCl 10 mg/mL (1 %) injection solution Performing Provider: Quan Rojas MD Performing Location: [facility] Administered by: Pilar Barron LPN on 10/27/24 14:09 Dose Route Admin Location Dispensed Lot Number Expiration Date [facility] Quarantine Officer 5 mL subcut 5 mL Assessment & Plan Assessment & Plan (1) Chronic pain of both knees: Code(s): M25.561 - Pain in right knee; M25.562 - Pain in left knee; G89.29 - Other chronic pain Category: Medical Plan Patient is status post temporary left saphenous nerve stimulator placement. Patient tolerated procedure well and was discharged home in stable condition with discharge instructions. All questions were answered. We will follow-up via telephone or in clinic to assess response to therapy. A follow-up appointment was made during today's visit. Orders: Orders US guide needle placement 10/27/24 Anjelica Alston APRN, AUTOMOBILE BRAKES BONDER M25.562 - Pain in left knee AMB Sprint PNS 10/27/24 Quan Rojas MD M25.562 - Pain in left knee Coding Level of Care Code Procedure Only Diagnoses Chronic pain of both knees M25.561; M25.562; G89.29 CPT Codes Sprint PNS - Sprint PNS Device: Sprint PNS Device ([id number]) Sprint PNS - SPRINT: 66772 - Percutaneous Peripheral Neuroelectrode ([id number]) Implantable Device Implantable Device Implantable Devices Qty Quarantine Officer Implant Date Expiration Date Analgesic PENS system 1 [facility] [employer] 10/27/24 01/22/25
== END 2024-10-27 14:36 | disposition home or self-care (01) ==
LOC: HO.PMCPRC 13:08
PROVIDERS: PCP Internal Medicine; Visit Provider Internal Medicine
DX: M25.511 Pain in right shoulder (principal)
CPT/HCPCS: 64555

== ENCOUNTER 2024-11-02 13:13 | Outpatient (AMB) | payer MEDICARE, SELFPAY ==
[2024-11-02 13:25] VITALS: BP 147/8; PULSE 76; O2SAT 96; BMI 33.3
--- NOTE | 2024-11-02 13:25 | A.OFFVIS_ITS ---
Vital Signs 11/02/24 13:25 Height 4 ft 11 in Weight 165 lb BMI 33.3 BP 147/8 H Blood Pressure Location Lt brachial Position Sitting Pulse 76 Pulse Source Pulse Oximeter Pulse Oximetry (%) 96 Oxygen Delivery Method Room Air Intake Visit Reasons: s/p left saphenous Sprint Cocoa Roaster Required: No Allergies Iodinated Contrast Media [IV CONTRAST] Allergy (Severe, Verified 11/02/24 13:26) ANAPHYLAXIS sumatriptan [From IMITREX] Allergy (Severe, Verified 11/02/24 13:26) PT STATES CAUSED [place] adhesive tape [ADHESIVE TAPE] Allergy (Intermediate, Verified 11/02/24 13:26) SKIN BLISTERS lisinopril [LISINOPRIL] Allergy (Mild, Verified 11/02/24 13:26) COUGH ciprofloxacin [CIPROFLOXACIN] Allergy (Unknown, Verified 11/02/24 13:26) RASH AND ITCHING 1st Relief [place] Allergy (Unknown, Uncoded 11/02/24 13:26) unknown Iodinated I 131 Albumin Allergy (Unknown, Uncoded 11/02/24 13:26) unknown Medication List - Last Reconciled 11/02/24 by Rosey Del Rio, DRAWER MAKER albuterol sulfate 90 mcg/actuation 2 puffs inhalation Q4H PRN ascorbic acid (vitamin C) 1 g PO Q6H aspirin (Adult Low Dose Aspirin) 81 mg PO DAILY atorvastatin 20 mg PO DAILY blood sugar diagnostic ([employer] Verio test strips) As directed bupropion HCl 125 mg PO QAM calcitriol 0.25 mcg PO DAILY cholecalciferol (vitamin D3) 25 mcg PO DAILY furosemide 20 mg PO DAILY PRN gabapentin mg PO BID hydroxyzine HCl 25 mg PO TID PRN lancets ([employer] ExpressTouch Delica Plus Lancet) As directed latanoprost 0.005% 1 drp ophthalmic (eye) BEDTIME levothyroxine mcg PO metoprolol succinate ER 50 mg PO DAILY nystatin topical QID PRN omeprazole 20 mg PO DAILY oxycodone 2.5 mg PO BID PRN trazodone 100 mg PO BEDTIME vibegron (Gemtesa) 75 mg PO DAILY HPI Comments Details: The patient is a 69-year-old female presenting to the office for follow up, 1 week s/p left saphenous nerve Sprint PNS. She reports a reduction in pain severity since initially experiencing levels of 9 out of 10, now managing at a 6 out of 10. She reports improvement in function and mobility, ambulation has improved since PNS placement. - Pain onset: Result of nerve disruption and fracture - Current pain level: 6 out of 10 - Initial pain level: 9 out of 10 - Fracture cause: Knee instability on stairs leading to a wobble - Exacerbating factors: Unspecified, but general movement leads to pain - Relieving factors: Use of heat, unspecified medical interventions - Functional interference: Difficulty walking, though intention to resume post- weight management - Affect: No specific mood or psychological impacts discussed - Analgesia: Not specified; however, the patient achieves partial relief to a pain level of 6 out of 10 - Adverse Effects: None reported - Activities of Daily Living: Previous significant impact, as patient was unable to walk due to pain, but weight-management efforts suggest an attempt to resume activity - Aberrant Drug Related Behaviors: None reported [facility] Medical History Lumbar radiculopathy Surgical History Status post replacement of right shoulder joint Social History Alcohol intake: never Patient Tobacco Use Status: Never used Tobacco Current occupational status: employed and retired Review of Systems Const Details: - Musculoskeletal: Reports difficulty walking due to knee injury - General: Reports successful weight management progress Physical Exam Vital Signs: Last Vital Signs Pulse 76 11/02/24 13:25 BP 147/8 H 11/02/24 13:25 Pulse Ox 96 11/02/24 13:25 Oxygen Delivery Method Room Air 11/02/24 13:25 BMI result Body Mass Index 33.3 General: awake, alert, oriented. Answers questions appropriately. Fully engaged in examination. Skin: warm, dry, intact HEENT: Normocephalic. Hearing intact. Cardiac: External chest normal in appearance. Respiratory: No cough, audible wheezing or stridor. Abdomen: without gross distension. MS: No obvious swelling or deformities. Neurological: Oriented to person, place, time and situation. Thought process intact. No gait abnormalities appreciated. Psychiatric: Appropriate mood and affect. Good judgment and insight. Sprint dressing change: Existing dressing removed, Area cleansed with chloraprep. Site dry, clean without redness, swelling, warmth, bruising or drainage. Lead secure device removed. Area cleansed again with chloraprep, once dry skin barrier protectant wipe applied. New lead secure device applied, tegaderm applied. Patient tolerated procedure well. Assessment & Plan Assessment & Plan (1) Chronic pain of both knees: Code(s): M25.561 - Pain in right knee; M25.562 - Pain in left knee; G89.29 - Other chronic pain Category: Medical Plan The patient's current management plan is to allow time for improved pain relief with the current treatment. Continued monitoring and self-directed dressing changes are supported, with advice to return if challenges arise. Adjustments to stimulate levels for better pain control are planned if needed. Additionally, her active role in weight management contributes positively to reducing musculoskeletal strain, facilitating better mobility. The treatment plan acknowledges current relief and encourages ongoing support for self-management strategies. I discussed with the patient the expected pain management outcomes and addressed her self-reported pain levels, noting that improvement often requires several weeks. Emphasis was placed on the importance of self-care in managing dressing changes unless she encounters problems. The treatment approach remains supportive and empowering for patient autonomy, and she was encouraged to continue weight management efforts as part of her health optimization. Future ad justments to stimulation levels to achieve better control were also discussed. All instructions reflect our conversation's focus on patient involvement in managing her pain and mobility. - Continue self-changing dressings unless difficulties arise - Monitor response to current pain management treatment and allow time for improvements - Adjust stimulation levels if needed for better pain control - Continue Weight Watchers program as part of overall health improvement - Seek assistance for further guidance if experiencing unusual symptoms or worsening condition Patient was informed and verbally consented to the use of an ambient scribe for clinic note documentation during this visit. Coding Level of Care Code Est Pt Level 3 (24717) Complex EM visit Add On G2211 Diagnoses Chronic pain of both knees M25.561; M25.562; G89.29
== END 2024-11-02 13:34 | disposition home or self-care (01) ==
LOC: HO.PMC 13:13
PROVIDERS: PCP Internal Medicine; Visit Provider Registered Nurse Emergency
DX: M25.561 Pain in right knee (principal); M25.562 Pain in left knee; G89.29 Other chronic pain
CPT/HCPCS: 99024

== ENCOUNTER → 2024-11-02 13:13 | Outpatient (BNVA) | payer MEDICARE, SELFPAY | PROVIDERS: PCP Internal Medicine; Visit Provider Registered Nurse Emergency | DX: M25.561 Pain in right knee (principal); M25.562 Pain in left knee; G89.29 Other chronic pain | CPT/HCPCS: 99212 ==

== ENCOUNTER 2024-12-21 09:24 | Outpatient (AMB) | payer MEDICARE, SELFPAY ==
--- NOTE | 2024-12-21 09:33 | MHC.OFFVIS ---
Vital Signs 12/21/24 09:36 Height 4 ft 11 in Weight 175 lb BMI 35.3 BP 185/88 H Blood Pressure Location Lt brachial Position Sitting Respiration 16 Pulse 76 Pulse Source Pulse Oximeter Pulse Oximetry (%) 98 Oxygen Delivery Method Room Air Intake Visit Reasons: Sprint removal Intake Note: Sprint removed, lead intact including the tip Raise Miner Required: No Allergies Iodinated Contrast Media [IV CONTRAST] Allergy (Severe, Verified 12/21/24 09:37) ANAPHYLAXIS sumatriptan [From IMITREX] Allergy (Severe, Verified 12/21/24 09:37) PT STATES CAUSED [place] adhesive tape [ADHESIVE TAPE] Allergy (Intermediate, Verified 12/21/24 09:37) SKIN BLISTERS lisinopril [LISINOPRIL] Allergy (Mild, Verified 12/21/24 09:37) COUGH ciprofloxacin [CIPROFLOXACIN] Allergy (Unknown, Verified 12/21/24 09:37) RASH AND ITCHING 1st Relief [place] Allergy (Unknown, Uncoded 12/21/24 09:37) unknown Iodinated I 131 Albumin Allergy (Unknown, Uncoded 12/21/24 09:37) unknown Medication List - Last Reconciled 12/21/24 by Pilar Barron LPN albuterol sulfate 90 mcg/actuation 2 puffs inhalation Q4H PRN ascorbic acid (vitamin C) 1 g PO Q6H aspirin (Adult Low Dose Aspirin) 81 mg PO DAILY atorvastatin 20 mg PO DAILY blood sugar diagnostic ([employer] Verio test strips) As directed bupropion HCl 125 mg PO QAM calcitriol 0.25 mcg PO DAILY cholecalciferol (vitamin D3) 25 mcg PO DAILY furosemide 20 mg PO DAILY PRN gabapentin mg PO BID hydroxyzine HCl 25 mg PO TID PRN lancets ([employer] & TechnologiesTouch Delica Plus Lancet) As directed latanoprost 0.005% 1 drp ophthalmic (eye) BEDTIME levothyroxine mcg PO metoprolol succinate ER 50 mg PO DAILY nystatin topical QID PRN omeprazole 20 mg PO DAILY oxycodone 2.5 mg PO BID PRN trazodone 100 mg PO BEDTIME vibegron (Gemtesa) 75 mg PO DAILY HPI HPI Sprint removal: Details: History of Present Illness The patient is a 69-year-old female presenting with a sprained neck. She describes the pain as severe and has been experiencing it more recently. The neck pain did not respond to any obvious treatment or mechanisms discussed during the conversation. She reports no identifiable causative event but did mention a potential perception correlation between the neck pain and her blood pressure. Despite a history of Essential Hypertension, her blood pressure readings were satisfactory in a recent medical consultation. Furthermore, the patient had a past successful experience with a left saphenous nerve stimulator implant, which was removed today. This intervention previously provided substantial relief from pain >90%, aligning with her positive response to the treatment protocol, which generally shows efficacy for 60 to 70% of those using the device. Post-removal, she remains nearly pain-free with this condition. The management plan for this pain includes potential reconsideration of similar or permanent interventions depending on the duration and persistence of relief. Pain Description - Onset and Timing: Recent onset; specific timing not indicated. - Quality and Character: Severe pain, described as hurts like a mother . - Location: Neck. - Relief Factors: Not specified. - Exacerbating Factors: Potential perceived correlation with blood pressure fluctuations. Physical Exam - Appears afebrile. - Alert and oriented. - Mood and affect appropriate. - Follows and participates in conversation appropriately. - Respiratory effort is unlabored. - Able to transition from sit to stand unassisted. - Ambulates with bilaterally normal heel strike and toe off. - Able to stand and walk on toes and heels. - Lead removed with tip intact. Site c/d/i Results Pain Management - Affect: The patient is pleased with the pain relief obtained post-nerve stimulator removal. - Analgesia: Reports no current pain in the regions treated by the saphenous nerve stimulator. - Adverse Effects: None reported from the nerve stimulator or its removal. - Activities of Daily Living: Improvement in daily functions noted post-pain relief with the nerve stimulator. - Aberrant Drug Related Behaviors: None indicated. [facility] Medical History Lumbar radiculopathy Surgical History Status post replacement of right shoulder joint Social History Alcohol intake: never Patient Tobacco Use Status: Never used Tobacco Current occupational status: employed and retired Physical Exam Vital Signs: Last Vital Signs Pulse 76 12/21/24 09:36 Resp 16 12/21/24 09:36 BP 185/88 H 12/21/24 09:36 Pulse Ox 98 12/21/24 09:36 Oxygen Delivery Method Room Air 12/21/24 09:36 BMI result Body Mass Index 35.3 Assessment & Plan Assessment & Plan (1) Chronic pain of both knees: Code(s): M25.561 - Pain in right knee; M25.562 - Pain in left knee; G89.29 - Other chronic pain Category: Medical Plan Plan - Evaluate further use of nerve stimulation for neck pain if future symptoms necessitate. - Repeat saphenous PNS as needed - Continue follow-ups as needed for hypertension to maintain controlled readings. Patient was informed and verbally consented to the use of an ambient scribe for clinic note documentation during this visit. Discussion Notes During the visit, we discussed the patient's experience with a sprained neck, highlighting the severe pain she is experiencing. We noted her positive response to the recent removal of the saphenous nerve stimulator, resulting in significant pain relief. The possibility of considering similar interventions for her neck pain in the future was reviewed, dependent on the persistence and recurrence of symptoms. We further discussed that her hypertension readings remain well controlled, although she noted a perceived correlation between elevated blood pressure and neck pain. We agreed to monitor this interaction closely and adjust treatment options as needed, while acknowledging no current adverse effects from prior nerve stimulator use. Patient Instructions - Monitor your neck pain and any correlation with blood pressure changes. - Follow up if neck pain persists or recurs. - Continue management as instructed for controlled blood pressure. - Contact our office if you experience any new or worsening symptoms. Coding Level of Care Code Est Pt Level 3 (72628) Diagnoses Chronic pain of both knees M25.561; M25.562; G89.29
[2024-12-21 09:36] VITALS: BP 185/88; PULSE 76; RESP 16; O2SAT 98; BMI 35.3
--- OUTSIDE RECORDS SUMMARY | 2024-12-21 09:55 | XMS_ITS | Clinical Summary ---
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 Role Phone Stevan Mosquera MD Primary Care Provider Allergies Active Allergy Reactions Criticality Noted Date Comments Adhesive Tape-Silicones 08/15/2019 Other Reaction(s): Rash/Dermatitis Diagnostic 05/05/2024 Diagnostic X-ray Materials Ibuprofen 01/06/2013 Iodinated Contrast Media 05/26/2013 Iv Contrast Dye Iodine 05/18/2017 Lisinopril 08/31/2012 Nitrofurantoin 08/25/2023 Intchyness Nsaids (Non-Steroidal Anti-Inflammatory Drug) 01/21/2017 Other 11/07/2011 kneoprene Sulfamethoxazole-Trimethoprim 2019 Sumatriptan 01/21/2017 Other Reaction(s): OTHER Tetracycline 05/21/2023 Medications CRANBERRY ORAL Take by mouth. 02061 mg daily Active lancets (OneTouch Delica Plus Lancet) 33 gauge Apply 1 Stick topically daily. 3 Active latanoprost (XALATAN) 0.005 % ophthalmic solution INSTILL 1 DROP INTO BOTH EYES EVERY NIGHT AT BEDTIME 1 Active ZINC ORAL Take 1 Tab by mouth daily. Active blood sugar diagnostic (OneTouch Verio test strips) test strip Use to test blood sugar once daily 3 Active trazodone HCl (TRAZODONE ORAL) Take 125 mg by mouth at bedtime Active biotin 5 mg capsule Take by mouth. Activ e aspirin 81 mg EC tablet Take 1 Tablet by mouth daily. Active ascorbic acid (VITAMIN C) 1,000 mg tablet Take 1,000 mg by mouth daily. Active cholecalcifero l (VITAMIN D-3) 25 mcg (1,000 unit) capsule TAKE ONE CAPSULE BY MOUTH EVERY DAY 90 capsule 1 5 Active calcitrioL (ROCALTROL) 0.25 mcg capsule TAKE ONE CAPSULE BY MOUTH EVERY DAY 90 capsule 1 5 Active hydrOXYzine HCL (ATARAX) 25 mg tablet TAKE ONE TABLET BY MOUTH THREE TIMES A DAY NEEDED FOR ANXIETY 90 tablet 1 5 Active magnesium oxide (MAG-OX) 400 mg magnesium tablet Take 1 tablet (400 mg total) by mouth 1 (one) time each day. 90 tablet 1 5 Active blood-glucose meter misc Use daily or as directed for monitoring of diabetes. One touch Verio 1 each 5 12/01/19 26 Active albuterol HFA (PROAIR HFA ; PROVENTIL HFA ; VENTOLIN HFA) 90 mcg/actuation inhaler Inhale 2 puffs by mouth every 4 (four) hours if needed for wheezing or shortness of breath. 6.7 g 2 5 Active atorvastatin (LIPITOR) 20 mg tablet Take 1 tablet (20 mg total) by mouth 1 (one) time each day. 90 tablet 1 5 Active calcium carbonate-bridget min D3 1,000 mg-20 mcg (800 unit) tablet Take 1 tablet by mouth 1 (one) time each day. 90 tablet 1 5 Active furosemide (LASIX) 20 mg tablet Take 1 tablet (20 mg total) by mouth if needed (swelling). 90 tablet 5 Active gabapentin (NEURONTIN) 100 mg capsule Take 1 capsule (100 mg total) by mouth 4 (four) times a day. 120 capsule 2 5 Active omeprazole (PriLOSEC) [address] capsule Take 1 capsule (20 mg total) by mouth 1 (one) time each day. Do not crush or chew. 90 capsule 1 5 Active levothyroxine (SYNTHROID, LEVOTHROID) 75 mcg tablet TAKE 1 TABLET BY MOUTH DAILY FROM THURSDAY THROUGH THURSDAY THEN TAKE 1 AND 1/2 TABLETS EVERY THURSDAY 96 tablet 1 5 Active metoprolol succinate (TOPROL-XL) 50 mg 24 hr tablet Take 1 tablet (50 mg total) by mouth 1 (one) time each day. Do not crush or chew. 90 tablet 1 5 Active methocarbamoL (ROBAXIN) 500 mg tablet Take 1 tablet (500 mg total) by mouth at bedtime as needed for muscle spasms for up to 10 days. Caution: Sedating. Do not drive or operate machinery on this medication. 10 tablet 5 12/31/19 Active calcium carbonate-bridget min D3 1,000 mg-20 mcg (800 unit) tablet Take 1 Tablet by mouth daily. 3 12/03/19 Discontinu ed(Reorder ) furosemide (LASIX) 20 mg tablet Take 1 Tablet by mouth as needed (lower extremity swelling). 12/03/19 Discontinu ed(Reorder ) gabapentin (NEURONTIN) 100 mg capsule Take 1 Capsule by mouth at bedtime. 12/03/19 Discontinu ed(Duplica te order) magnesium oxide (MAG-OX) 400 mg magnesium tablet Take 400 mg by mouth daily. 11/24/19 Discontinu ed(Reorder ) metoprolol succinate (TOPROL-XL) 50 mg 24 hr tablet Take 1 Tablet by mouth daily. 11/30/19 Discontinu ed(Reorder ) nystatin (MYCOSTATIN) 100,000 unit/gram powder Sprinkle on rash 4 times/day for 1 week as needed 11/27/19 vibegron (Gemtesa) 75 mg tablet tablet Take 1 Tablet by mouth daily 12/03/19 Discontinu ed(Non-com pliance) blood-glucose meter kit 1 Device by Does not apply route daily. 3 12/03/19 Discontinu ed(Duplica te order) bupropion HCl (WELLBUTRIN ORAL) Take 125 mg by mouth daily 12/03/19 Discontinu ed(Discont inued by another clinician) gabapentin (NEURONTIN) 100 mg capsule Take 2 capsules (200 mg total) by mouth at bedtime. 60 each 3 4 12/03/19 Discontinu ed(Duplica te order) oxyCODONE (ROXICODONE) 5 mg immediate release tablet Take 0.5 tablets (2.5 mg total) by mouth 2 (two) times a day if needed for severe pain. Max Daily Amount: 5 mg 7 tablet 4 12/03/19 Discontinu ed(Therapy completed) atorvastatin (LIPITOR) 20 mg tablet TAKE ONE TABLET BY MOUTH EVERY DAY 90 tablet 1 5 12/03/19 Discontinu ed(Reorder ) omeprazole (PriLOSEC) [address] capsule Take 1 capsule (20 mg total) by mouth 1 (one) time each day. Do not crush or chew. 90 capsule 1 5 12/03/19 Discontinu ed(Reorder ) levothyroxine (SYNTHROID, LEVOTHROID) 75 mcg tablet TAKE 1 TABLET BY MOUTH DAILY FROM THURSDAY THROUGH THURSDAY THEN TAKE 1 AND 1/2 TABLETS EVERY THURSDAY 96 tablet 1 5 12/03/19 Discontinu ed(Reorder ) albuterol HFA (PROAIR HFA ; PROVENTIL HFA ; VENTOLIN HFA) 90 mcg/actuation inhaler Inhale 2 puffs by mouth every 4 (four) hours if needed for wheezing or shortness of breath. 6.7 g 5 12/03/19 Discontinu ed(Reorder ) gabapentin (NEURONTIN) 100 mg capsule TAKE ONE CAPSULE BY MOUTH EVERY MORNING & TAKE TWO CAPSULES BY MOUTH DAILY AT BEDTIME 90 capsule 4 5 12/03/19 Discontinu ed(Reorder ) metoprolol succinate (TOPROL-XL) 50 mg 24 hr tablet Take 1 tablet (50 mg total) by mouth 1 (one) time each day. Do not crush or chew. 90 tablet 5 12/21/19 Discontinu ed(Reorder ) Active Problems Problem Noted Date Diagnosed Date Stage 3 chronic kidney disease ([facility] V24, [facility] V28) 05/05/2024 Urinary incontinence 05/05/2024 Anxiety and depression 05/05/2024 Cervical pain (neck) 05/05/2024 Chest pain 05/05/2024 Arthralgia 05/05/2024 Major depressive disorder, r ecurrent episode, moderate ([facility] V24, [facility] V28) 05/05/2024 Peripheral polyneuropathy 05/05/2024 Chronic midline low back pain without sciatica 0 11/26/2023 Hypomagnesemia 11/26/2023 Restless leg syndrome 11/26/2023 SIADH (syndrome of inappropr iate ADH production) ([facility] V24) 08/20/2023 Insomnia 07/27/2023 Prediabetes 07/27/2023 Shortness of breath 05/21/2023 Subclavian artery stenosis ([facility] V24) 022 Coronary artery disease invo lving [place]igl[place] heart without angina pectoris 07/24/2022 Hyponatremia 02/01/2021 [...] at current dose. Type 2 diabetes mellitus wit h renal manifestations ([facility] V24, [facility] V28) 02/03/2018 Hyperlipidemia 01/15/2018 Overview (05/05/2024): Last Assessment & Plan: LDL somewhat above target. Continue statin at current dose. Dietary modification and increased exercise will help. Hypothyroidism 01/15/2018 Chronic dermatitis 06/08/2017 Overview (05/05/2024): F/u Dr. Rodriguez Chronic obstructive pulmonar y disease ([facility] V24, [facility] V28) 06/08/2017 GERD (gastroesophageal reflux disease) 7 Migraine 05/29/2017 Overview (05/05/2024): Sees dr. Jansen Cerebral aneurysm 05/29/2017 Overview (05/05/2024): Reported by patient; follows with Neurology at [facility] Prurigo nodularis 05/29/2017 Arthritis of right hip 05/21/2017 Congenital spondylolisthesis 01/21/2017 Morbid obesity ([facility] V24, [facility] V28) 2016 Asthma 12/18/2016 Takotsubo cardiomyopathy 03/07/2016 Overview (05/05/2024): followed by [facility] Cardiology Dr. Salcedo LVEF 30% in 2011 [...] Encounters Date Type Department Care Team Description 12/20/2024 3:30 PM EDT Office Visit Walk-In Clinic - [facility] [address] [place] [address] Vidal Rodriguez PA Muscle spasms of neck (Primary Dx) 12/20/2024 Telephone Adult Medicine [address] [phone] Stevan Mosquera MD Neck Pain 12/02/2024 11:15 AM EDT Office Visit Adult Medicine [facility] [address] [place] [phone] Sinai Khan PA Anxiety and depression (Primary Dx); Chronic obstructive pulmonary disease, unspecified COPD type (CMS/HCC V24, CMS/HCC V28); Essential hypertension; Gastroesophageal reflux disease without esophagitis; Coronary artery disease involving [place] heart without angina pectoris, unspecified vessel or lesion type; Acquired hypothyroidism; Chronic midline low back pain without sciatica; Peripheral polyneuropathy; Prediabetes; Hyponatremia 11/10/2024 Telephone Neurosurgery [facility] [address] [place] [address] [place], [place] 11/10/2024 Telephone Adult Medicine [facility] [address] [place] [phone] Stevan Mosquera MD Referral ([facility] referral needed) 10/18/2024 Telephone Vascular Surgery [facility] [address] [place] [address] Ashwini Jurado PA testing from Last 3 Months Immunizations Name Administration Dates Next Due Influenza trivalent, 0.5mL ( Fluzone High-dose) 65yo and older 05/29/2023,2022,04/27/2021,04/08,06/18/2018 Influenza trivalent, 0.5mL, preservative free (Fluarix; FluLaval; Fluzone) ages 6mo and older (Afluria) 3 years and older 04/13/2020,04/23/2017,06/04/2016,06/08 Influenza, Unspecified 04/08/2019 [employer] SARS-CoV-2 COVID -19, vector-nr, rS-Ad26, preservative free [...] abscess/cellulitis. (s/p hip replace 02/22/18) BREAST BIOPSY Left PROCEDURE: BX BREAST; PERC NEEDLE CORE W/IMAG GUID; COMMENT: b9 OTHER SURGICAL HISTORY 06/03/2019 Right PROCEDURE: AK ANES ARTHROSCOPIC TOTAL SHOULDER REPLACEMENT; COMMENT: [place] BREAST REDUCTION PROCEDURE: AK BREAST REDUCTION; COMMENT: 2020 Medical History Medical History Date Comments Anxiety DX:Anxiety GERD (gastroesophageal reflu x disease) DX:GERD (gastroesophageal re flux disease) Cardiomyopathy (CMS/HCC V24, CMS/HCC V28) DX:Cardiomyopathy (HCC) TIA (transient ischemic attack) DX:TIA (transient ischemic attack) Depression DX:Depression Osteoarthritis DX:Osteoarthriti s Urinary retention DX:Urinary ret ention; COMMENT: Urinary incontinence at present being followed by urologist Dr. Molina Trigger finger 05/29/2017 DX:Trigger finge r Migraine 05/29/2017 DX:Migraine; COM MENT: Follows with Neurology at [facility] Vitamin D deficiency 09/02/2013 DX:Vitamin D deficiency Prurigo nodularis 05/29/2017 DX:Prurigo nod ularis Primary osteoarthritis of hip 07/27/2017 DX :Primary osteoarthritis of hip Paroxysmal atrial fibrillati on ([facility] V24, [facility] V28) 03/07/2016 DX:Paroxysmal atrial fibril lation ([facility]) Osteopenia 11/08/2015 DX:Osteopenia Morbid obesity with BMI of 4 0.0-44.9, adult ([facility] V24, [facility] V28) 12/24/2016 DX:Morbid obesity wit h BMI of 40.0-44.9, adult ([facility]) Hypothyroidism 01/15/2018 DX:Hypothyroidis m Hypertension 02/04/2018 DX:Hypertension Hyperlipidemia 01/15/2018 DX:Hyperlipidemi a History of MS (myocardial infarction) 05/29/2017 DX:History of MS (myocardial infarction); COMMENT: 3 COPD (chronic obstructive pu lmonary disease) ([facility] V24, [facility] V28) 06/08/2017 DX:COPD (chronic o bstructive pulmonary disease) ([facility]) Congestive heart failure ([facility] V24, [facility] V28) 06/08/2017 DX:Congestive heart failure ([facility]) Congenital spondylolisthesis 01/21/2017 DX: Congenital spondylolisthesis Chronic dermatitis 06/08/2017 DX:Chronic de rmatitis Anemia 02/04/2018 DX:Anemia Asthma 12/18/2016 DX:Asthma Bipolar 1 disorder ([facility] V24, [facility] V28) 06/08/2017 DX:Bipolar 1 disorder ([facility]); COMMENT: Patient follows up with Janna Loredo, use to see Dr. Monique in the past Brain aneurysm 05/29/2017 DX:Brain aneurys m; COMMENT: Reported by patient; follows with Neurology at [facility] History of knee replacement, total, right 12/18/2016 DX:History of knee replaceme nt, total, right History of bariatric surgery 05/29/2017 DX: History of bariatric surgery; COMMENT: Lap band CKD (chronic kidney disease) stage 3, GFR 30-59 ml/min ([facility] V24, [facility] V28) DX:CKD (chronic kidney disea se) stage 3, GFR 30-59 ml/min ([facility]); COMMENT: Dr. Foster Type 2 diabetes mellitus wit h renal manifestations ([facility] V24, [facility] V28) 02/03/2018 DX:Type 2 diabetes mellitus with renal [...] Major depressive disorder, r ecurrent episode, moderate ([facility] V24, [facility] V28) DX:Major depressive disorder , recurrent episode, moderate ([facility]); COMMENT: Followed by psychiatrist Arthralgia DX:Arthralgia Thoracic back pain DX:Thoracic b ack pain Cervical pain (neck) DX:Cervical pain (neck) Hyponatremia DX:Hyponatremia; COMMENT: Followed by Dr. Foster Takotsubgrisel cardiomyopathy DX:Tako tsubo cardiomyopathy; COMMENT: Followed by [...] drink = 0.6 oz pur e alcohol) Comments No Sex and Gender Information Value Date Recorded Sex Assigned at Female 06/27/2024 1:40 PM EST Legal Sex Female 6:16 PM EST Gender Identity Female 06/27/2024 1:40 PM EST Sexual Orientation Straight 06/30/2024 12 :02 PM EST Obstetrics History Last Filed Vital Signs Vital Sign Reading Time Taken Comments Blood Pressure 128/82 12/20/2024 3:22 PM EDT Pulse 87 12/20/2024 3:22 PM EDT Temperature 36.7 ??C (98 ??F) 12/20/2024 3:22 PM EDT Respiratory Rate 14 12/02/2024 11:16 AM EDT Oxygen Saturation 98% 12/20/2024 3:22 PM EDT Inhaled Oxygen Concentration - - Weight 76.7 kg (169 lb) 12/02/2024 11:16 AM EDT Height 149.9 cm (4' 11 ) 12/02/2024 11:16 AM EDT Body Mass Index 34.13 12/02/2024 11:16 AM EDT Plan of Treatment Upcoming Encounters Date Type Department Care Team (Late st Contact Info) Description 12/28/2024 3:15 PM EDT Office Visit Nephrology - [address] [phone] Eduin Foster MD [address] [place] [address] 03/14/2025 4:00 PM EDT Office Visit Adult Medicine [place] - [address] [phone] Sinai Khan PA [address] [place], [place] [phone] Health Maintenance Due Date Last Done Comments Depression Screening 09/06/2020 Falls Risk Assessment 09/06/2020 Medicare Annual Wellness Visit 09/06/2020 Social Influencers of Health Screening 09/06/2020 COVID-19 Vaccine ( season) 2024 11/19/2021, 06/06/2021, 11/12/2020 Diabetes: Annual Foot Exam 05/29/2024 05/29/2023 Diabetes: Annual Urine Albumin-Creatinine Ratio (uACR) 08/12/2024 08/12/2023 Diabetes: Annual Retina Eye Exam 10/11/2024 10/12/2023 Diabetes: Blood Sugar Control Test (HGBA1C) 05/24/2025 11/22/2024, 04/20/2024, 04/20/2024 Breast Cancer Screening 09/02/2025 09/02/19, 01/26/2023, 08/14/2022, Additional history exists Diabetes: Annual GFR (Glomerular Filtration Rate) 11/22/2025 11/22/2024, 04/20/2024, 04/20/2024, Additional history exists Hypertension/CHF/CAD Annual BMP Blood Test 11/22/2025 11/22/2024, 04/20/2024, 04/20/2024, Additional history exists Cholesterol Screening (Lipid Panel) 04/20/2029 04/20/2024, 04/20/2024 DTaP,Tdap,and Td Vaccines (2 - Td or Tdap) 09/17/2029 09/17/2019 Colorectal Cancer Screening: Colonoscopy 10/12/2029 10/13/2019 Osteoporosis Screening (Bone Density Screening) 09/24/2033 09/24/2023, 10/25/2020 Hepatitis C Screening Completed 05/28/2017 Zoster Vaccines Completed 09/17/2020, 07/19/2020 Pneumococcal Vaccine: 50+ Years Completed 12/01/2022, 04/08/2019, 04/08/2019, Additional history exists RSV Immunization Adult Patients Completed 07/18/2023 Influenza Vaccine Completed 03/12/2024, , [...] patient's age to complete this topic Meningococcal B Vaccine Aged Out No l onger eligible based on patient's age to complete this topic RSV Immunization Patients Under 20 months Aged Out No longer eligible based on patient's age to complete this topic Varicella Vaccines Aged Out No longer eligible based on patient's age to complete this topic Procedures Procedure Name Priority Date/Time Associated Diagnosis Comments MAGNESIUM Routine 11/22/2024 11:36 AM EDT Essential hypertension Coronary artery disease involving [place] heart without angina pectoris, unspecified vessel or lesion type Acquired hypothyroidism Stage 3 chronic kidney disease, unspecified whether stage 3a or 3b CKD ([facility]/HCC V24, CMS/HCC V28) Hypomagnesemia Hyponatremia Chronic midline low back pain without sciatica Peripheral polyneuropathy Restless leg syndrome Osteopenia, unspecified location Mild intermittent asthma without complication Anxiety and depression THYROID STIMULATING HORMONE WITH REFLEX TO FREE T4 AND FREE T3 Routine 11/22/2024 11:36 AM EDT Essential hypertension Coronary artery disease involving [place] heart without angina pectoris, unspecified vessel or lesion type Acquired hypothyroidism Stage 3 chronic kidney disease, unspecified whether stage 3a or 3b CKD (CMS/HCC V24, CMS/[facility] V28) Hypomagnesemia Hyponatremia Chronic midline low back pain without sciatica Peripheral polyneuropathy Restless leg syndrome Osteopenia, unspecified location Mild intermittent asthma without complication Anxiety and depression BASIC METABOLIC PANEL Routine 11/22/2024 11:36 AM EDT Essential hypertension Coronary artery disease involving [place] heart without angina pectoris, unspecified vessel or lesion type Acquired hypothyroidism Stage 3 chronic kidney disease, unspecified whether stage 3a or 3b CKD (CMS/HCC V24, CMS/HCC V28) Hypomagnesemia Hyponatremia Chronic midline low back pain without sciatica Peripheral polyneuropathy Restless leg syndrome Osteopenia, unspecified location Mild intermittent asthma without complication Anxiety and depression HEMOGLOBIN A1C Routine 11/22/2024 11:36 AM EDT Prediabetes LIPID PANEL Routine 04/20/2024 DIABETES EYE EXAM [...] Recently Relevant to Health Maintenance Results * Thyroid stimulating hormone with reflex to free t4 and free t3 (11/22/2024 11:36 AM EDT) TSH 2.23 0.40 - 4.00 mcIU/mL LAB CHEMISTRY METHOD 11/23/2024 11:29 AM EDT [facility] Blood Venous blood specimen / Unknown Venipuncture / Unknown 11/22/2024 11:36 AM EDT 11/22/2024 11:36 AM EDT Stevan Mosquera MD LAB BLOOD ORDERABLES Final Result Performing Organization Address City/[facility]/ZIP Co de Phone Number [facility] [address] [place] [address], [place] [phone] * (ABNORMAL) Magnesium (11/22/2024 11:36 AM EDT) Pathologist [facility] Magnesium 1.8(L) 1.9 - 2.6 mg/dL LAB CHEMISTRY METHOD 11/22/2024 5:33 PM EDT [facility] Blood Venous blood specimen / Unknown Venipuncture / Unknown 11/22/2024 11:36 AM EDT 11/22/2024 11:36 AM EDT Stevan Mosquera MD LAB BLOOD ORDERABLES Final Result [facility] [address] [place] [address], [place] [phone] * Hemoglobin A1c (11/22/2024 11:36 AM EDT) [facility] Hemoglobin A1C 6.1 <6.5 % LAB CHEMISTRY METHOD 11/22/2024 9:53 PM EDT [facility] Mean Bld Glu Estim. 128 mg/dL LAB CHEMISTRY METHOD 11/22/2024 9:53 PM T [facility] Blood Venous blood specimen / Unknown Venipuncture / Unknown 11/22/2024 11:36 AM EDT 11/22/2024 11:36 AM EDT us Stevan Mosquera MD LAB BLOOD ORDERABLES Final Result [facility] [address] [place] [address], * (ABNORMAL) Basic metabolic panel (11/22/2024 11:36 AM EDT) [facility] Sodium 128(L) 133 - 145 mmol/L LAB CHEMISTRY METHOD 11/22/2024 5:33 PM [facility] Potassium 4.7 3.5 - 5.5 mmol/L LAB CHEMISTRY METHOD 11/22/2024 5:33 PM [facility] Chloride 95(L) 96 - 110 mmol/L LAB CHEMISTRY METHOD 11/22/2024 5:33 PM [facility] CO2 25 21 - 32 mmol/L LAB CHEMISTRY METHOD 11/22/2024 5:33 PM [facility] Anion Gap 8 3 - 11 LAB CHEMISTRY METHOD 11/22/2024 5:33 PM [facility] Glucose 115(H) 70 - 100 mg/dL LAB CHEMISTRY METHOD 11/22/2024 5:33 PM [facility] BUN 10 5 - 25 mg/dL LAB CHEMISTRY METHOD 11/22/2024 5:33 PM [facility] Creatinine 0.99 0.50 - 1.10 mg/dL LAB CHEMISTRY METHOD 11/22/2024 5:33 PM EDT [facility] eGFR 61 >=60 mL/min/1. 73m2 LAB CHEMISTRY METHOD 11/22/2024 5:33 PM EDT [facility] Comment:Calculation based on the??Chronic Kidney Disease Epidemiology Collaboration (CKD-EPI) equation refit??without adjustment for race. BUN/Creatinine Ratio 10.1 LAB CHEMISTRY METHOD 11/22/2024 5:33 PM EDT [facility] Calcium 9.3 8.5 - 10.5 mg/dL LAB CHEMISTRY METHOD 11/22/2024 5:33 PM EDT [facility] Blood Venous blood specimen / Unknown Venipuncture / Unknown 11/22/2024 11:36 AM EDT 11/22/2024 11:36 AM EDT Stevan Mosquera MD LAB BLOOD ORDERABLES Final Result [facility] [address] [place] [address], * Lipid panel (04/20/2024) [facility] LDL/HDL Ratio 2 0 - 4 Triglycerides 36 0 - 150 mg/dL Cholesterol 124 0 - 200 mg/dL HDL 85 >=40 mg/dL LDL Cholesterol 32 0 - 100 mg/dL Blood Venous blood specimen / Unknown Cathy Provider LAB BLOOD ORDERABLES Cierra l Result * Diabetes Eye Exam (10/12/2023) [facility] Diabetes: Annual Retina Eye Exam abstracted Historical Provider HEALTH MAINTENANCE Final Result * DXA BONE DENSITY STUDY 1+ SITS [...] (World Health Organization Fracture Risk Assessment) [facility] Department of Internal Medicine recommends using National [...] (World Health Organization Fracture Risk Assessment) [facility] Department of Internal Medicine recommendsusing National Osteoporosis [...] over-estimation of fracture risk by FRAX. Sinai Denisse James DOUGLAS IMHumberto DXA PROCEDURES Final Result * DIAGNOSTIC MAMMOGRAPHY INCLUDING CAD BILATERAL (09/02/2023 [...] left breast in 1 year Procedure Note aDriusz Monk MD - 03/28/2024 This is a [...] 1year Stevan Mosquera MD IMG BI PROCEDURES Final Res ult * Urine Albumin Creatinine Ratio (08/12/2023) Urine Albumin Creatinine Ratio abstracted Historical Provider HEALTH MAINTENANCE Final Result * Diabetes Foot Exam (05/29/2023) Pathologist [facility] Diabetes: Annual Foot Exam abstracted Historical Provider HEALTH MAINTENANCE Final Result * Colonoscopy (10/13/2019) Pathologist [facility] Colonoscopy no interpretation , abstracted Anatomical Region Laterality Modality Other Historical Provider HEALTH MAINTENANCE Final Result * Hepatitis C Screening (05/28/2017) Pathologist [facility] Hepatitis C Screening abstracted Historical Provider HEALTH MAINTENANCE Final Result from Last 3 Months or Most Recently Relevant to Health Maintenance Insurance [employer] Advance Directives Documents on File Type Date Recorded Patient Pick Up Expl anation Health Care Decision (hx) 04/10/2022 [...] (hx) 05/12/2012 AD CONCEPCION DIRECTIVE Care Teams 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
--- OUTSIDE RECORDS SUMMARY | 2024-12-21 09:55 | XMS_ITS | Clinical Summary ---
Author Organization [facility], Address [address] [place] [address] Phone Care Team Providers Care It Professional Name Role Phone Kayla Mares DO Primary [...] Reported by patient; follows with Neurology at [facility] Migraine 05/29/2017 Overview (12/04/2020): Follows with Neurology at [facility] Prurigo nodularis 05/29/2017 Arthritis of right hip 05/21/2017 Congenital spondylolisthesis 01/21/2017 Body mass index 40+ - severely obese 12/24/2016 Asthma 12/18/2016 Depressive disorder 12/18/2016 Takotsubo cardiomyopathy 03/07/2016 Overview (12/04/2020): [facility] Dr. Salcedo Last Assessment & [...] Colorectal Cancer Screening: Sigmoidoscopy 2002 Pneumococcal Vaccine: 50+ Ye ars (2 of 2 - PPSV23) 09/12/2015 07/18/2015 Diabetes: Ophthalmology Exam 12/04/2020 Diabetes: Pedal Pulse Checked 12/04/2020 Diabetes: Sensory Foot Exam 12/04/2020 Diabetes: Visual Foot Exam 12/04/2020 Diabetes: Hemoglobin A1C 12/05/2020 09/06/2020 Influenza Vaccine (Season Ended) 2025 Pneumococcal Vaccine: Peds ( 0 to 5 Years) and At-Risk Patients (6 to 49 Years) Discontinued 07/18/2015 Hepatitis B Vaccine Aged Out No longe r eligible based on patient's age to complete this topic Insurance [facility] Care Teams It Professional Relationship Specialty Start Date End Date Kayla Mares DO PCP - General Internal Medicine 12/04/20
--- OUTSIDE RECORDS SUMMARY | 2024-12-21 09:55 | XMS_ITS | Data Portability ---
Author Organization [facility] [place] Address [address] [facility] [address] [place] [address] Care Team Providers Care Medical Record Consultant Name Role Phone YUEHEMANT TRIANA Primary Care Provider Assessment Encounter Date Assessment Date Assessment LastModified [...] for creams and ointments to apply however [id number] pain medication as recommended. I did offer [...] Recorded Time Pain of left knee joint [id number] Active 2022 PARISH BELL PA-C [address] [facility] [address], [place], [address] [facility], 3 13:37:02 Problem Notes None recorded. Medical [...] Not Available Not Available No t Available [employer] Ultra Test strips USE TO CHECK BLOOD [...] Not Available Not Available No t Available [facility] 100,000 unit/gram topical powder APPLY ON RASH FOUR TIMES A DAY FOR 1 WEEK NEEDED. active Not Available Not Available N ot Available Vitals Date Recorded Body height Body mass index (BMI) Body weight Provider Name and Address Organization Details Last Updated DateTime 12/26/2022 152.4 cm 40.2 kg/m2 47420.[address] [facility], 12/26/2022 13:24:38 Social History None recorded. Functional Status Question Answer Note LastModified by Organizat ion Details LastModified Time Do you use any illicit or recreational drugs? No Information not available 12/26/2022 Do you or have you ever used any other forms of tobacco or nicotine? No Information not available 12/26/2022 What is your level of alcohol consumption? Occasional [id number] Information not available 12/26/2022 Mental Status None recorded. Family History Nothing Reported. Medical History Condition Response Kidney Disease Y Heart Attack (HI) Y Diabetes Y Asthma Y Hypertension Y Gynecological HistoryNo gynecological history recorded. Obstetrics History GPAL:G 0 P 0 0 0 0 Past Encounters Encounter ID Performer Location Encounter Start Date Encounter Closed Date Diagnosis/Indication Diagnosis SNOMED-CT Code Diagnosis ICD10 Code Diagnosis Note [id number] KADEN SUNG [facility] [address] [facility] [address] [place] [address] 12/26/2022 13:12:57 12/26/2022 13:34:49 Pain of left knee joint [id number] 15866 M25.562 Health Concerns Section Related Observation LastModified by Organization Detai ls LastModified Time None Recorded Concern Status LastModified by Organization Details LastModified Time None Recorded Advance Directives Directive None Recorded Payers Encounter Date Sequence Insurance Name Policy Number Policy [place] Covered Member ID [place] Member ID Guarantor Name 12/26/2022 1 [facility] - MEDICARE PREFERRED (MEDICARE REPLACEMENT HMO) [id number] Rose Noyola [id number] 1 Rose Noyola Notes Date Note Type [...] the replaced knee joint. PARISH BELL PA-C [address] [place] [address], [phone], [place] [facility], P 12/26/2022 13:37:21 OBGyn Episode No OBEpisode recorded.
--- OUTSIDE RECORDS SUMMARY | 2024-12-21 09:55 | XMS_ITS | Encounter Summary ---
Author Organization [facility] [place] [address] Care Team Providers Care Hairspring Adjuster Name Role Phone Stevan Mosquera MD Primary Care Provider [phone] Reason for Visit * Reason Comments Neck Pain X 5 to 7 days radiat ing to R shoulder no injury Encounter Details Date Type Department Care Team (Late st Contact Info) Description 12/20/2024 3:30 PM EDT Office Visit Walk-In Clinic - [facility] [address] [place] [address] Vidal Rodriguez PA [address] [place] [address] Muscle spasms of neck (Primary Dx) Social History Tobacco Use Types Packs/Day Years [...] Orientation Straight 06/30/2024 12 :02 PM EST documented as of this encounter Last Filed Vital Signs Vital Sign Reading Time Taken Comments Blood Pressure 128/82 12/20/2024 3:22 PM EDT Pulse 87 12/20/2024 3:22 PM EDT Temperature 36.7 ??C (98 ??F) 12/20/2024 3:22 PM EDT Respiratory Rate - - Oxygen Saturation 98% 12/20/2024 3:22 PM EDT Inhaled Oxygen Concentration - - Weight - - Height - - Body Mass Index - - documented in this encounter Ordered Prescriptions Prescription Sig Dispense Quantity Refills Last Filled Start Date End Date methocarbamoL (ROBAXIN) 500 mg tablet Take 1 tablet (500 mg total) by mouth at bedtime as needed for muscle spasms for up to 10 days. Caution: Sedating. Do not drive or operate machinery on this medication. 10 tablet 12/20/2024 documented in this encounter Progress Notes * MISAEL Rodríguez - 12/20/2024 3:30 PM EDT CHIEF COMPLAINT: Chief Complaint Patient presents with Neck Pain X 5 to 7 days radiating to R shoulder no injury HPI: Rose Noyola is a 69 y.o. old female presenting with 5 days of pain on the right side of the neck and difficulty rotating the head to the left and right. Pain occurred gradual onset after lifting a heavy object. Denies any direct injury, trauma, fall. No paresthesias or weakness of the upper extremities or lower extremities beyond baseline issues. Denies fever or chills. Denies baseline gait disturbance or balance problems. ROS: Remainder of the 12 point review of symptoms unremarkable except for those idenitified in the HPI. PAST MEDICAL HISTORY: Patient Active Problem List Diagnosis Date Noted Stage 3 chronic kidney disease ([facility] V24, [facility] V28) 05/05/2024 Urinary incontinence 05/05/2024 Anxiety and depression 05/05/2024 Cervical pain (neck) 05/05/2024 Chest pain 05/05/2024 Arthralgia 05/05/2024 Major depressive disorder, recurrent episode, moderate ([facility] V24, [facility] V28) 05/05/2024 Peripheral polyneuropathy 05/05/2024 Chronic midline low back pain without sciatica 11/26/2023 Hypomagnesemia 11/26/2023 Restless leg syndrome 11/26/2023 SIADH (syndrome of inappropriate ADH production) ([facility] V24) 08/20/2023 Insomnia 07/27/2023 Prediabetes 07/27/2023 Shortness of breath 05/21/2023 Subclavian artery stenosis ([facility] V24) 07/24/2022 Coronary artery disease involving circle heart without angina pectoris 07/24/2022 Hyponatremia 02/01/2021 Old myocardial infarction 01/28/2021 Disorder of pericardium 01/28/2021 Acute pericarditis 01/28/2021 Macromastia 08/15/2019 Arthritis of right glenohumeral joint 02/11/2019 Aneurysm, carotid artery, internal 12/14/2018 Glaucoma 11/12/2018 Essential hypertension 02/04/2018 Type 2 diabetes mellitus with renal manifestations ([facility] V24, [facility] V28) 02/03/2018 Hyperlipidemia 01/15/2018 Hypothyroidism 01/15/2018 Chronic dermatitis 06/08/2017 Chronic obstructive pulmonary disease ([facility] V24, [facility] V28) 06/08/2017 GERD (gastroesophageal reflux disease) 06/08/2017 Migraine 05/29/2017 Cerebral aneurysm 05/29/2017 Prurigo nodularis 05/29/2017 Arthritis of right hip 05/21/2017 Congenital spondylolisthesis 01/21/2017 Morbid obesity ([facility] V24, [facility] V28) 12/24/2016 Asthma 12/18/2016 Takotsubo cardiomyopathy 03/07/2016 Osteopenia 11/08/2015 Past Surgical History: Procedure Laterality Date BREAST BIOPSY Left 2011ish PROCEDURE: BX BREAST; PERC NEEDLE CORE W/IMAG GUID; COMMENT: b9 BREAST REDUCTION PROCEDURE: DE BREAST REDUCTION; COMMENT: 2020 FOOT SURGERY Bilateral PROCEDURE: HISTORICAL FOOT SURGERY; COMMENT: all 10 toes straightened; NEOS HAND SURGERY PROCEDURE: HISTORICAL HAND SURGERY; COMMENT: left hand, ring finger, 2 surgeries HIP ARTHROPLASTY Right 02/22/2018 PROCEDURE: HISTORICAL HIP REPLACEMENT; COMMENT: 05/12/2018: Hx dislocation of R hip replacement after a fall off chair, s/p closed reduction in ER. 07/10/2018, admitted for I&D of R hip bursal abscess/cellulitis. LAPAROSCOPIC GASTRIC BANDING PROCEDURE: LAP ADJUSTABLE GASTRIC BAND; COMMENT: pulled out 2007 OTHER SURGICAL HISTORY Right 07/10/2018 PROCEDURE: INCISION/DRAIN ABSCESS EXTRA; COMMENT: I&D R bursal abscess/cellulitis. (s/p hip replace 02/22/18) OTHER SURGICAL HISTORY Right 06/03/2019 PROCEDURE: DE ANES ARTHROSCOPIC TOTAL SHOULDER REPLACEMENT; COMMENT: [place] TOTAL KNEE ARTHROPLASTY Right PROCEDURE: HISTORICAL TOTAL KNEE REPLACE; COMMENT: 2010, right knee SOCIAL HISTORY: Social History Tobacco Use Smoking status: Never Smokeless tobacco: Never Substance Use Topics Alcohol use: No FAMILY HISTORY: Family History Problem Relation Name Age of Onset Stroke Sister (patient says all of her siblings were adopted) Breast cancer Neg Hx Family Status Relation Name Status Sister (Not Specified) Neg Hx (Not Specified) Son Alive Son Alive No partnership data on file MEDICATIONS DISCONTINUED/REORDERED: There are no discontinued medications. ACTIVE MEDICATIONS: No outpatient medications have been marked as taking for the 12/20/24 encounter (Office Visit) with MISAEL Rodríguez. ALLERGIES: Allergies Allergen Reactions Adhesive Tape-Silicones Other Reaction(s): Rash/Dermatitis Diagnostic Diagnostic X-ray Materials Ibuprofen Iodinated Contrast Media Iv Contrast Dye Iodine Lisinopril Nitrofurantoin Intchyness Nsaids (Non-Steroidal Anti-Inflammatory Drug) Other kneoprene Sulfamethoxazole-Trimethoprim Sumatriptan Other Reaction(s): OTHER Tetracycline PHYSICAL EXAM: Vitals: 12/20/24 1522 BP: 128/82 Pulse: 87 Temp: 36.7 ??C (98 ??F) TempSrc: Temporal SpO2: 98% CONSTITUTIONAL: alert, calm, cooperative, in no acute distress HEAD: normocephalic, atraumatic EYES: extraocular movement intact (EOMI), sclera non-icteric EARS: no hearing deficit noted NECK: neck range of motion limited significantly, patient unable to rotate neck to the left or right unless applying pressure and supporting the back right side of her neck musculature. Full flexion and extension of neck. No tenderness at midline cervical spine. No palpable deformity of cervical spine. Tender along right paravertebral musculature and following right trapezius musculature. SKIN: warm and dry. No rash. LYMPH: No cervical, occipital, or supraclavicular adenopathy. LUNGS: respirations regular rate and depth without acute distress EXTREMITIES: no clubbing, cyanosis, or edema. Radial pulses 2+ bilaterally. Full range of motion ofbilateral shoulders. Moving upper and lower extremities equally and spontaneously. NEUROLOGIC: alert and oriented, no tremor, cranial nerves II-XII grossly intact PSYCH: mood/affect full range, speech clear, good eye contact, cooperative with exam LABS/IMAGING: None Lab Results Component Value Date EGFR 61 11/22/2024 IMPRESSION: 1. Muscle spasms of neck PLAN: The patient's PMH, problem list and medications were reviewed in reference to the above diagnosis/diagnoses. Based on ROS, HPI, and PE, suggestive of neck muscle spasms. Index of suspicion for fracture is lowin the absence of focalized deficits or trauma. Radiograph was not performed today. Systemic symptoms to indicate infectious pathology. Educated patient to rest, ice/heat, gentle stretching, gentle massage. Initiate Robaxin 500 mg by mouth at bedtime as needed for spasms. Reviewed extreme caution due to sedating effects. Patient denies baseline gait or balance problems, benefits outweigh risk for short dose. Tylenol as needed. Contraindicated from NSAIDs, not prescribed. Advised to follow up with PCP in 7 days if symptoms do not improve. Advised to follow up with UC orPCP immediately for new or worsening symptoms. Educated on red flags symptoms. Advised to go to the ER or call 911 for these symptoms. Patient understands the plan. Patient verbalizes agreement with the plan. No orders of the defined types were placed in this encounter. Other orders methocarbamoL (ROBAXIN) 500 mg tablet; Take 1 tablet (500 mg total) by mouth at bedtime as needed for muscle spasms for up to 10 days. Caution: Sedating. Do not drive or operate machinery on this medication. MISAEL Rodríguez on 12/20/2024 at 3:51 PM EDT Today's documentation was made using voice recognition software. This note may contain grammatical errors secondary to this software. Cosigned by Leobardo Hickey MD at 12/20/2024 5:06 PM EDT documented in this encounter Plan of Treatment Upcoming Encounters Date Type Department Care Team (Late st Contact Info) Description 12/28/2024 3:15 PM EDT Office Visit Nephrology - [place] [address] [place] [address] Eduin Foster MD [address] [facility] [address] [place] [address] 03/14/2025 4:00 PM EDT Office Visit Adult Medicine [facility] [address] [place] [phone] Sinai Khan PA [address] [place] [address] documented as of this encounter Visit Diagnoses Diagnosis Muscle spasms of neck- Primary documented in this encounter Care Teams Hairspring Adjuster Relationship Specialty Start Date End Date Stevan Mosquera MD [address] [place] [phone] PCP - General Internal Medicine 11/10/24 documented as of this encounter
--- OUTSIDE RECORDS SUMMARY | 2024-12-21 09:55 | XMS_ITS | Clinical Summary ---
Author Organization [facility] Address [address] [place] [address] Care Team Providers Care Net Ui Developer Name Role Phone Stevan Mosquera MD Primary [...] age to complete this topic Care Teams Net Ui Developer Relationship Specialty Start Date End Date Stevan Mosquera MD [address] [place] [address] [phone] PCP - General Hospitalist Medicine 04/22/22
--- OUTSIDE RECORDS SUMMARY | 2024-12-21 09:55 | XMS_ITS | Encounter Summary ---
Author Organization [facility] Address [address] [place] [address] Care Team Providers Care Locksmith Name Role Phone Stevan Mosquera MD Primary Care Provider [phone]- [phone] Reason for Visit * Reason Onset Date Comments Neck Pain 12/20/2024 Encounter Details Date Type Department Care Team (Late st Contact Info) Description 12/20/2024 Telephone Adult Medicine [address] [address] Stevan Mosquera MD [address] [place] [phone] Neck Pain Social History Tobacco Use Types Packs/Day Years [...] PM EST documented as of this encounter Progress Notes * Carolyn Hernandez RN - 12/20/2024 1:15 PM EDT Pt. States she developed this pain 1 week ago rt. Side of neck posterior radiating up towards base of neck, no injury associated , no headache, no fever , no chest pain or sob, no blurred vision . She has been applying heat but has not resolved I probable moved the wrong way , no numbness or tingling in hand. Pain is severe at times 7/10 at present time . Apt. Booked urgent care, if pain worsens or she develops cp,sob,dizziness, headache fever advised to go to the ER. Pt. Verbalized understanding * Marga Wolff - 12/20/2024 12:44 PM EDT Patient calling stating she has bad neck pain for about 5 days. Difficulty turning her head. Deniesany W/C or MVA documented in this encounter Plan of Treatment Upcoming Encounters Date Type Department Care Team (Late st Contact Info) Description 12/28/2024 3:15 PM EDT Office Visit Nephrology [address] [phone] Eduin Foster MD [address] [place] [address] 03/14/2025 4:00 PM EDT Office Visit Adult Medicine [address] [phone] Sinai Khan PA [address] [place] [address] documented as of this encounter Visit Diagnoses Not on filedocumented in this encounter Care Teams Locksmith Relationship Specialty Start Date End Date Stevan Mosquera MD [address] [place] [address] PCP - General Internal Medicine 11/10/24 documented as of this encounter
== END 2024-12-21 10:10 | disposition home or self-care (01) ==
PROVIDERS: PCP Internal Medicine; Visit Provider Internal Medicine
DX: M25.561 Pain in right knee (principal); M25.562 Pain in left knee; G89.29 Other chronic pain
CPT/HCPCS: 99213

== ENCOUNTER → 2024-12-21 09:24 | Outpatient (BNVA) | payer MEDICARE, SELFPAY | PROVIDERS: PCP Internal Medicine; Visit Provider Internal Medicine | DX: M25.561 Pain in right knee (principal); M25.562 Pain in left knee; G89.29 Other chronic pain; Z45.42 Encounter for adjustment and management of neurostimulator | CPT/HCPCS: 99212 ==

== ENCOUNTER 2025-04-03 13:39 | Outpatient (AMB) | payer MEDICARE, SELFPAY ==
--- NOTE | 2025-04-03 13:41 | MHC.OFFVIS ---
Vital Signs 04/03/25 13:42 Height 4 ft 11 in Weight 182 lb BMI 36.8 BP 129/71 Blood Pressure Location Lt brachial Position Sitting Respiration 16 Pulse 81 Pulse Source Pulse Oximeter Pulse Oximetry (%) 98 Oxygen Delivery Method Room Air Intake Visit Reasons: SCS Discussion Oxygen Therapy Technician Required: No Allergies Iodinated Contrast Media (IV CONTRAST) Allergy (Severe, Verified 04/03/25 13:43) ANAPHYLAXIS sumatriptan (From IMITREX) Allergy (Severe, Verified 04/03/25 13:43) PT STATES CAUSED WI adhesive tape (ADHESIVE TAPE) Allergy (Intermediate, Verified 04/03/25 13:43) SKIN BLISTERS lisinopril (LISINOPRIL) Allergy (Mild, Verified 04/03/25 13:43) COUGH ciprofloxacin (CIPROFLOXACIN) Allergy (Unknown, Verified 04/03/25 13:43) RASH AND ITCHING 1st Relief [place] Allergy (Unknown, Uncoded 04/03/25 13:43) unknown Iodinated I 131 Albumin Allergy (Unknown, Uncoded 04/03/25 13:43) unknown Medication List - Last Reconciled 04/03/25 by Pilar Barron LPN albuterol sulfate 90 mcg/actuation 2 puffs inhalation Q4H PRN amlodipine 5 mg PO DAILY ascorbic acid (vitamin C) 1 g PO Q6H aspirin (Adult Low Dose Aspirin) 81 mg PO DAILY atorvastatin 20 mg PO DAILY blood sugar diagnostic (Page [employer] Verio test strips) As directed bupropion HCl 125 mg PO QAM calcitriol 0.25 mcg PO DAILY cholecalciferol (vitamin D3) 25 mcg PO DAILY furosemide 20 mg PO DAILY PRN gabapentin mg PO BID hydroxyzine HCl 25 mg PO TID PRN lancets (Page [employer] Delica Plus Lancet) As directed latanoprost 0.005% 1 drp ophthalmic (eye) BEDTIME levothyroxine mcg PO nystatin topical QID PRN omeprazole 20 mg PO DAILY oxycodone 2.5 mg PO BID PRN trazodone 100 mg PO BEDTIME vibegron (Gemtesa) 75 mg PO DAILY HPI HPI SCS Discussion: Details: History of Present Illness The patient is a 69-year-old female presenting with follow-up for knee pain. The knee pain has been persistent despite previous interventions, including a nerve block and a stimulator, which initially seemed effective but ultimately did not provide lasting relief. The pain is severe enough to disrupt sleep, even with the use of sleeping pills, and is described as intense and localized to specific areas of the knee. The patient has a history of a patellar fracture, initially misdiagnosed as a sprain, which was later confirmed in August. This fracture may still be contributing to the ongoing knee pain. Additionally, the patient reports having osteoarthritis, confirmed in the hands, and a prolapsed bladder, which are contributing to her overall discomfort. The patient has undergone bilateral knee replacements and has a history of a fractured hip and back surgery performed by Dr. Silva. Pain Description - Onset: Persistent knee pain despite interventions - Quality: Intense and localized - Exacerbating factors: Pain persists despite sleeping pills - Interference: Disrupts sleep Physical Exam - Appears afebrile. - Alert and oriented. - Mood and affect appropriate. - Follows and participates in conversation appropriately. - Respiratory effort is unlabored. - Left knee pain Pain Management - Affect: Pain disrupts sleep and daily comfort - Analgesia: Using Tylenol, nerve block, and stimulator with limited relief - Activities of Daily Living: Pain interferes with sleep and comfort [facility] Medical History Lumbar radiculopathy Surgical History Status post replacement of right shoulder joint Social History Alcohol intake: never Patient Tobacco Use Status: Never used Tobacco Current occupational status: employed and retired Physical Exam Vital Signs: Last Vital Signs Pulse 81 04/03/25 13:42 Resp 16 04/03/25 13:42 BP 129/71 04/03/25 13:42 Pulse Ox 98 04/03/25 13:42 Oxygen Delivery Method Room Air 04/03/25 13:42 BMI result Body Mass Index 36.8 Assessment & Plan Assessment & Plan (1) Left knee pain: Code(s): M25.562 - Pain in left knee Category: Medical Plan Plan - Investigate health plan coverage for genicular nerve radiofrequency ablation as a potential treatment for refractory knee pain. - Provided instructions for contacting the health plan to inquire about procedure coverage. Patient will inform us of coverage and we will proceed accordingly. Patient was informed and verbally consented to the use of an ambient scribe for clinic note documentation during this visit. Discussion Notes I discussed with the patient the possibility of genicular nerve radiofrequency ablation as a treatment option for her knee pain, which has not improved with previous interventions. I advised her to contact her health plan to determine if the procedure is covered, as there is a high likelihood of denial without prior authorization. Patient Instructions - Contact your health plan to inquire about coverage for the genicular nerve radiofrequency ablation procedure. - Follow the instructions provided for contacting member services. Coding Level of Care Code Est Pt Level 3 (22438) Diagnoses Left knee pain M25.562
[2025-04-03 13:42] VITALS: BP 129/71; PULSE 81; RESP 16; O2SAT 98; BMI 36.8
--- OUTSIDE RECORDS SUMMARY | 2025-04-03 15:00 | XMS_ITS | Clinical Summary ---
Author Organization [facility] Address [address] [place] [address] Care Team Providers Care Roofing Layer Name Role Phone Stevan Mosquera MD Primary Care Provider [phone] Allergies Active Allergy Reactions Criticality Noted Date Comments Adhesive Tape-Silicones 08/15/2019 Other Reaction(s): Rash/Dermatitis Diagnostic 05/05/2024 Diagnostic X-ray Materials Ibuprofen 01/06/2013 Iodinated Contrast Media 05/26/2013 Iv Contrast Dye Iodine 05/18/2017 Lisinopril 08/31/2012 Nitrofurantoin 08/25/2023 Intchyness Nsaids (Non-Steroidal Anti-Inflammatory Drug) 01/21/2017 Other 11/07/2011 kneoprene Sulfamethoxazole-Trimethoprim 2019 Sumatriptan 01/21/2017 Other Reaction(s): OTHER Tetracycline 05/21/2023 Medications CRANBERRY ORAL Take by mouth. 91041 mg daily Active latanoprost (XALATAN) 0.005 % ophthalmic solution INSTILL 1 DROP INTO BOTH EYES EVERY NIGHT AT BEDTIME 12/28/19 21 Active ZINC ORAL Take 1 Tab by mouth daily. Active trazodone HCl (TRAZODONE ORAL) Take 125 mg by mouth at bedtime Active biotin 5 mg capsule Take by mouth. Active aspirin 81 mg EC tablet Take 1 Tablet by mouth daily. Active ascorbic acid (VITAMIN C) 1,000 mg tablet Take 1,000 mg by mouth daily. Active cholecalcifero l (VITAMIN D-3) 25 mcg (1,000 unit) capsule TAKE ONE CAPSULE BY MOUTH EVERY DAY 90 capsule 1 10/12/19 25 Active calcitrioL (ROCALTROL) 0.25 mcg capsule TAKE ONE CAPSULE BY MOUTH EVERY DAY 90 capsule 1 10/14/19 25 Active magnesium oxide (MAG-OX) 400 mg magnesium tablet Take 1 tablet (400 mg total) by mouth 1 (one) time each day. 90 tablet 1 11/24/19 25 Active albuterol HFA (PROAIR HFA ; PROVENTIL HFA ; VENTOLIN HFA) 90 mcg/actuation inhaler Inhale 2 puffs by mouth every 4 (four) hours if needed for wheezing or shortness of breath. 6.7 g 2 12/06/19 25 Active atorvastatin (LIPITOR) 20 mg tablet Take 1 tablet (20 mg total) by mouth 1 (one) time each day. 90 tablet 1 12/06/19 25 Active calcium carbonate-bridget min D3 1,000 mg-20 mcg (800 unit) tablet Take 1 tablet by mouth 1 (one) time each day. 90 tablet 1 12/06/19 25 Active gabapentin (NEURONTIN) 100 mg capsule Take 1 capsule (100 mg total) by mouth 4 (four) times a day. 120 capsule 2 12/06/19 25 Active omeprazole (PriLOSEC) [address] capsule Take 1 capsule (20 mg total) by mouth 1 (one) time each day. Do not crush or chew. 90 capsule 1 12/06/19 25 Active levothyroxine (SYNTHROID, LEVOTHROID) 75 mcg tablet TAKE 1 TABLET BY MOUTH DAILY FROM THURSDAY THROUGH THURSDAY THEN TAKE 1 AND 1/2 TABLETS EVERY THURSDAY 96 tablet 1 12/06/19 25 Active metoprolol succinate (TOPROL-XL) 50 mg 24 hr tablet Take 1 tablet (50 mg total) by mouth 1 (one) time each day. Do not crush or chew. 90 tablet 1 12/21/19 25 Active hydrOXYzine HCL (ATARAX) 25 mg tablet TAKE ONE TABLET BY MOUTH THREE TIMES A DAY NEEDED FOR ANXIETY 90 tablet 01/10/20 25 Active acetaminophen (Tylenol 8 Hour) 650 mg 8 hr tablet Take 1 tablet (650 mg total) by mouth every 8 (eight) hours if needed for mild pain. Do not crush, chew, or split. 90 tablet 1 01/27/20 25 Active losartan (Cozaar) 25 mg tablet Take 1 tablet (25 mg total) by mouth 1 (one) time each day. 90 each 1 02/16/20 25 Active cyclobenzaprin e (FLEXERIL) 5 mg tablet Take 1 tablet (5 mg total) by mouth at bedtime as needed for muscle spasms. 30 tablet 1 02/16/20 25 Active furosemide (LASIX) 20 mg tablet Take 1 tablet (20 mg total) by mouth 1 (one) time each day if needed (swelling). 90 tablet 03/09/20 25 Active Accu-Chek Guide Glucose Meter misc Blood sugar checks once a day. 1 kit 03/23/20 25 Active blood sugar diagnostic (Accu-Chek Guide test strips) test strip Use to check blood sugar once a day 200 each 2 03/23/20 25 026 Active Accu-Chek Softclix Lancets Use to check blood sugar once a day 200 each 2 03/23/20 25 026 Active lancets (OneTouch Delica Plus Lancet) 33 gauge Apply 1 Stick topically daily. 06/09/20 23 025 Discontinued(Fo rmulary change) blood sugar diagnostic (OneTouch Verio test strips) test strip Use to test blood sugar once daily 06/09/20 23 025 Discontinued(Fo rmulary change) blood-glucose meter misc Use daily or as directed for monitoring of diabetes. One touch Verio 1 each 12/01/19 25 025 Discontinued(Fo rmulary change) furosemide (LASIX) 20 mg tablet Take 1 tablet (20 mg total) by mouth if needed (swelling). 90 tablet 12/06/19 25 025 Discontinued Active Problems Problem Noted Date Diagnosed Date Adenomatous polyp of sigmoid colon 01/26/2025 CKD (chronic kidney disease) stage 2, GFR 60-89 ml/min 12/28/2024 Stage 3 chronic kidney disease (CMS/[facility] V24, CMS /[facility] V28) 05/05/2024 Urinary incontinence 05/05/2024 Anxiety and depression 05/05/2024 Cervical pain (neck) 05/05/2024 Chest pain 05/05/2024 Arthralgia 05/05/2024 Major depressive disorder, r ecurrent episode, moderate (CMS/HCC V24, CMS/[facility] V28) 05/05/2024 Peripheral polyneuropathy 05/05/2024 Chronic midline low back pain without sciatica 0 11/26/2023 Hypomagnesemia 11/26/2023 Restless leg syndrome 11/26/2023 SIADH (syndrome of inappropr iate ADH production) ([facility] V24) 08/20/2023 Insomnia 07/27/2023 Prediabetes 07/27/2023 Shortness of breath 05/21/2023 Subclavian artery stenosis ([facility]24) 022 Coronary artery disease invo lving stillaguamish heart without angina pectoris 07/24/2022 Hyponatremia with decreased serum osmolality Old myocardial infarction 01/28/2021 Overview (05/05/2024): Old [...] 2 diabetes mellitus wit h renal manifestations ([facility] V24, [facility] V28) 02/03/2018 Hyperlipidemia 01/15/2018 Overview (05/05/2024): Last Assessment & Plan: LDL somewhat above target. Continue statin at current dose. Dietary modification and increased exercise will help. Hypothyroidism 01/15/2018 Chronic dermatitis 06/08/2017 Overview (05/05/2024): F/u Dr. Rodriguez Chronic obstructive pulmonar y disease ([facility] V24, [facility] V28) 06/08/2017 GERD (gastroesophageal reflux disease) 7 Migraine 05/29/2017 Overview (05/05/2024): Sees dr. Jansen Cerebral aneurysm 05/29/2017 Overview (05/05/2024): Reported by patient; follows with Neurology at [facility] Prurigo nodularis 05/29/2017 Arthritis of right hip 05/21/2017 Congenital spondylolisthesis 01/21/2017 Morbid obesity ([facility] V24, [facility] V28) 2016 Asthma 12/18/2016 Takotsubo cardiomyopathy 03/07/2016 Overview (05/05/2024): [facility] Cardiology Dr. Salcedo LVEF 30% in 2011 [...] Encounters Date Type Department Care Team Description 03/21/2025 Telephone Adult Medicine [address] [phone] Stevan Mosquera MD 02/17/2025 Telephone Adult Medicine [address] [phone] Stevan Mosquera MD 02/15/2025 10:00 AM EDT Consult Adult Medicine [address] [phone] Stevan Mosquera MD Pre-op evaluation (Primary Dx); Essential hypertension; Coronary artery disease involving stillaguamish heart without angina pectoris, unspecified vessel or lesion type; Hyponatremia with decreased serum osmolality; Stage 3 chronic kidney disease, unspecified whether stage 3a or 3b CKD (CMS/HCC V24, CMS/HCC V28); Acquired hypothyroidism; Prediabetes; Mild intermittent asthma without complication; Restless leg syndrome; Peripheral polyneuropathy; Anxiety and depression 02/15/[address] [phone] Stevan Mosquera MD 02/14/[address] [phone] Stevan Mosquera MD 02/06/2025 1:00 PM EDT Evaluation [facility] Occupational Therapy [address] [place] [phone] Monica Hwang OT Primary osteoarthritis of both hands 02/03/[address] [phone] [facility] [place] 02/03/[address] [phone] Stevan Mosquera MD 01/26/2025 9:45 AM EDT Office Visit [address] [phone] Sinai Khan PA Primary osteoarthritis of both hands (Primary Dx); Cervical pain (neck); Adenomatous polyp of sigmoid colon 01/12/[address] [phone] Stevan Mosquera MD 01/06/[address] [phone] ElbertAmberly leon MA from Last 3 Months Immunizations Name Administration Dates Next Due Influenza trivalent, 0.5mL ( Fluzone High-dose) 65yo and older 05/29/2023,2022,04/27/2021,04/08,06/18/2018 Influenza trivalent, 0.5mL, preservative free (Fluarix; FluLaval; Fluzone) ages 6mo and older (Afluria) 3 years and older 04/13/2020,04/23/2017,06/04/2016,06/08 Influenza, Unspecified 04/08/2019 [employer] SARS-CoV-2 COVID -19, vector-nr, rS-Ad26, preservative free [...] abscess/cellulitis. (s/p hip replace 02/22/18) BREAST BIOPSY 2012ish Left PROCEDURE: BX BREAST; PERC NEEDLE CORE W/IMAG GUID; COMMENT: b9 OTHER SURGICAL HISTORY 06/03/2019 Right PROCEDURE: ID ANES ARTHROSCOPIC TOTAL SHOULDER REPLACEMENT; COMMENT: [place] BREAST REDUCTION PROCEDURE: ID BREAST REDUCTION; COMMENT: 2020 Medical History Medical History Date Comments Anxiety DX:Anxiety GERD (gastroesophageal reflu x disease) DX:GERD (gastroesophageal re flux disease) Cardiomyopathy ([facility] V24, [facility] V28) DX:Cardiomyopathy ([facility]) TIA (transient ischemic attack) DX:TIA (transient ischemic attack) Depression DX:Depression Osteoarthritis DX:Osteoarthriti s Urinary retention DX:Urinary ret ention; COMMENT: Urinary incontinence at present being followed by urologist Dr. Molina Trigger finger 05/29/2017 DX:Trigger finge r Migraine 05/29/2017 DX:Migraine; COM MENT: Follows with Neurology at [facility] Vitamin D deficiency 09/02/2013 DX:Vitamin D deficiency Prurigo nodularis 05/29/2017 DX:Prurigo nod ularis Primary osteoarthritis of hip 07/27/2017 DX :Primary osteoarthritis of hip Paroxysmal atrial fibrillati on ([facility] V24, [facility] V28) 03/07/2016 DX:Paroxysmal atrial fibril lation ([facility]) Osteopenia 11/08/2015 DX:Osteopenia Morbid obesity with BMI of 4 0.0-44.9, adult ([facility] V24, [facility] V28) 12/24/2016 DX:Morbid obesity wit h BMI of 40.0-44.9, adult ([facility]) Hypothyroidism 01/15/2018 DX:Hypothyroidis m Hypertension 02/04/2018 DX:Hypertension Hyperlipidemia 01/15/2018 DX:Hyperlipidemi a History of [place] (myocardial infarction) 05/29/2017 DX:History of IL (myocardial infarction); COMMENT: 3 COPD (chronic obstructive pu lmonary disease) ([facility] V24, [facility] V28) 06/08/2017 DX:COPD (chronic o bstructive pulmonary disease) ([facility]) Congestive heart failure ( S/[facility] V24, [facility] V28) 06/08/2017 DX:Congestive heart failure ([facility]) Congenital spondylolisthesis 01/21/2017 DX: Congenital spondylolisthesis Chronic dermatitis 06/08/2017 DX:Chronic de rmatitis Anemia 02/04/2018 DX:Anemia Asthma 12/18/2016 DX:Asthma Bipolar 1 disorder ([facility] V24, [facility] V28) 06/08/2017 DX:Bipolar 1 disorder (HCC); COMMENT: Patient follows up with Janna Loredo, use to see Dr. Monique in the past Brain aneurysm 05/29/2017 DX:Brain aneurys m; COMMENT: Reported by patient; follows with Neurology at [facility] History of knee replacement, total, right 12/18/2016 DX:History of knee replaceme nt, total, right History of bariatric surgery 05/29/2017 DX: History of bariatric surgery; COMMENT: Lap band CKD (chronic kidney disease) stage 3, GFR 30-59 ml/min ([facility] V24, [facility] V28) DX:CKD (chronic kidney disea se) stage 3, GFR 30-59 ml/min ([facility]); COMMENT: Dr. Foster Type 2 diabetes mellitus wit h renal manifestations ([facility] V24, [facility] V28) 02/03/2018 DX:Type 2 diabetes mellitus with renal manifestations ([facility]) History of total hip replace ment, right [...] Major depressive disorder, r ecurrent episode, moderate ([facility] V24, [facility] V28) DX:Major depressive disorder , recurrent episode, moderate ([facility]); COMMENT: Followed by psychiatrist Arthralgia DX:Arthralgia Thoracic [...] drink = 0.6 oz pur e alcohol) Housing Instability Answer Date Recorde d Are you worried that in the next 2 months you may not have stable housing? No 02/15/2025 Food Access & Nutrition Answer Date Rec orded Do you have access to a vari ety of food including fruits and vegetables? Yes 02/15/2025 Access to Healthcare Answer Date Record ed Within the last 3 months, ho w many times did you visit the emergency department for your medical care? 1 02/15/2025 Health Literacy Answer Date Recorded How often do you need to hav e someone help you when you read instructions, pamphlets, or other written material from your doctor or pharmacy? Never 02/15/2025 Caregiver: How often do you need to have someone help you when you read instructions, pamphlets, or other written material from your doctor or pharmacy? Not on file 02/15/2025 Financial Risk Answer Date Recorded How hard is it for you to pa y for the very basics like food, housing, medical care, and air conditioning / heating? Not very hard 02/15/2025 Transportation Answer Date Recorded Has the lack of transportati on kept you from meetings, work, or from getting things needed for daily living? No Has the lack of transportati on kept you from medical appointments or from getting medications? No 02/15/2025 Social Isolation Answer Date Recorded How often do you feel lonely or isolated from those around you? Sometimes 02/15/2025 Food Risk Answer Date Recorded Within the past 12 months we worried whether our food would run out before we got money to buy more. Never true 02/15/2025 Within the past 12 months th e food we bought just didn't last and we didn't have money to get more. Never true 02/15/2025 Dependent Care Answer Date Recorded Do you need help finding or paying for care for your loved ones. For example, child and family therapist or elderly care for an older adult? No 02/15/2025 Education Answer Date Recorded Do you think completing more education or training, like finishing a GED, going to college, or learning a trade, would be helpful for you? N/A 02/15/2025 Employment and Income Answer Date Recor ded During the last four weeks, have you been actively looking for work? No 02/15/2025 Living Situation Answer Date Recorded What is your living situation? 0 02/15/2025 Comments No Sex and Gender Information Value Date Recorded Sex Assigned at Female 06/27/2024 1:40 PM EST Legal Sex Female 6:16 PM EST Gender Identity Female 06/27/2024 1:40 PM EST Sexual Orientation Straight 06/30/2024 12 :02 PM EST Obstetrics History Last Filed Vital Signs Vital Sign Reading Time Taken Comments Blood Pressure 160/80 02/15/2025 9:59 AM EDT Pulse 70 02/15/2025 9:50 AM EDT Temperature 36.6 C (97.8 F) 01/26/2025 9:32 AM EDT Respiratory Rate 14 01/26/2025 9:32 AM EDT Oxygen Saturation 98% 12/20/2024 3:22 PM EDT Inhaled Oxygen Concentration - - Weight 82.6 kg (182 lb) 02/15/2025 9:50 AM EDT Height 149.9 cm (4' 11 ) 02/15/2025 9:50 AM EDT Body Mass Index 36.76 02/15/2025 9:50 AM EDT Plan of Treatment Upcoming Encounters Date Type Department Care Team (Late st Contact Info) Description 04/24/2025 3:00 PM EDT Office Visit Adult Medicine [address] [phone] Stevan Mosquera MD [address] [place] [phone] 04/25/2025 3:30 PM EDT Consult Orthopedic Surgery - [address] [phone] Roz Patel MD [address] [phone] 04/27/2025 9:00 AM EDT Appointment [facility] Endoscopy [address] [place] [phone] Bryanna James MD 175 [facility] [address] [place] [address] 05/18/2025 1:00 PM EDT Office Visit Urogynecology - [place] [address] [place] [phone] Jazzy Hutson MD [address] [facility] [address] [place] [address] Health Maintenance Due Date Last Done Comments Falls Risk Assessment 09/06/2020 Medicare Annual Wellness Visit 09/06/2020 COVID-19 Vaccine ( season) 2024 11/19/2021, 06/06/2021, 11/12/2020 Diabetes: Annual Foot Exam 05/29/2024 05/29/2023 Diabetes: Annual Urine Albumin-Creatinine Ratio (uACR) 08/12/2024 08/12/2023 Diabetes: Annual Retina Eye Exam 10/11/2024 10/12/2023 Influenza Vaccine (#1) 2025 , 05/29/2023, 2022, Additional history exists Diabetes: Blood Sugar Control Test (HGBA1C) 05/24/2025 11/22/2024, 04/20/2024, 04/20/2024 Breast Cancer Screening 09/02/2025 09/02/19 24, 01/26/2023, 08/14/2022, Additional history exists Social Influencers of Health Screening 02/15/2026 02/15/2025 Diabetes: Annual GFR (Glomerular Filtration Rate) 03/24/2026 03/24/2025, 02/15/2025, 12/23/2024, Additional history exists Hypertension/CHF/CAD Annual BMP Blood Test 03/24/2026 03/24/2025, 02/15/2025, 12/23/2024, Additional history exists DTaP,Tdap,and Td Vaccines (2 - Td or Tdap) 09/17/2029 09/17/2019 Colorectal Cancer Screening: Colonoscopy 10/12/2029 10/13/2019 Cholesterol Screening (Lipid Panel) 03/24/2030 03/24/2025, 04/20/2024, 04/20/2024 Osteoporosis Screening (Bone Density Screening) 09/24/2033 09/24/2023, 10/25/2020 Hepatitis C Screening Completed 05/28/2017 Zoster Vaccines Completed 09/17/2020, 07/19/2020 Pneumococcal Vaccine: 50+ Years Completed 12/01/2022, 04/08/2019, 04/08/2019, Additional history exists RSV Immunization Adult Patients Completed 07/18/2023 Depression Screening Completed 02/15/2025 HIB Vaccines Aged Out No longer eligi [...] on patient's age to complete this topic Goals Goal Patient Goal Type Associated Problems Recent Progress Patient-Stated? Author OT goals General No Monica Hwang, OT Note: Pt will return demo application/role/schedule of splints (for TF/thumb pain/OA deformity Pt will demo awareness of joint protect techniques during routine IADL Pt will demo awareness of AE options to reduce strain during IADL Procedures Procedure Name Priority Date/Time Associated Diagnosis Comments LIPID PANEL WITH REFLEX TO DIRECT LDL Routine 03/24/2025 3:33 PM EDT Hypertension Hyperlipidemia, unspecified hyperlipidemia type BASIC METABOLIC PANEL Routine 03/24/2025 3:33 PM EDT Hypertension Hyperlipidemia, unspecified hyperlipidemia type HEPATIC FUNCTION PANEL Routine 03/24/2025 3:33 PM EDT Hypertension Hyperlipidemia, unspecified hyperlipidemia type CBC WITH AUTO DIFFERENTIAL Routine 02/15/2025 10:42 AM EDT Pre-op evaluation BASIC METABOLIC PANEL Routine 02/15/2025 10:42 AM EDT Essential hypertension Stage 3 chronic kidney disease, unspecified whether stage 3a or 3b CKD (CMS/HCC V24, CMS/HCC V28) MAGNESIUM Routine 02/15/2025 10:42 AM EDT Essential hypertension Stage 3 chronic kidney disease, unspecified whether stage 3a or 3b CKD (CMS/HCC V24, CMS/HCC V28) CBC AND DIFFERENTIAL Routine 02/15/2025 10:42 AM EDT Pre-op evaluation HEMOGLOBIN A1C Routine 11/22/2024 11:36 AM EDT Prediabetes DIABETES EYE EXAM Routine 10/12/2023 DXA BONE [...] Recently Relevant to Health Maintenance Results * Lipid panel with reflex to direct LDL (03/24/2025 3:33 PM EDT) Cholesterol 139 0 - 200 mg/dL LAB CHEMISTRY METHOD 03/24/2025 7:15 PM EDT [facility] Triglycerides 44 0 - 150 mg/dL LAB CHEMISTRY METHOD 03/24/2025 7:15 PM EDT [facility] HDL 94 >=40 mg/dL LAB CHEMISTRY METHOD 03/24/2025 7:15 PM EDT [facility] LDL Calculated 36 0 - 100 mg/dL LAB CHEMISTRY METHOD 03/24/2025 7:15 PM EDT [facility] Comment:Estimated LDL Calcul ated using equation: Total cholesterol - HDL cholesterol - (Triglycerides/5) VLDL Cholesterol Jaya 8.8 mg/dL LAB CHEMISTRY METHOD 03/24/2025 7:15 PM EDT [facility] Non HDL Chol. (LDL+VLDL) 45 <145 mg/dL LAB CHEMISTRY METHOD 03/24/2025 7:15 PM EDT [facility] Chol/HDL Ratio 1.5 0.0 - 4.4 LAB CHEMISTRY METHOD 03/24/2025 7:15 PM EDT [facility] Blood Venous blood specimen / Unknown Venipuncture / Unknown 03/24/2025 3:33 PM EDT 03/24/2025 3:33 PM EDT us Jina DOUGLAS LAB BLOOD ORDERABLES Final Res ult [facility] [address] [place] [address], [place] [phone] * Hepatic function panel (03/24/2025 3:33 PM EDT) Total Protein 6.7 6.0 - 8.0 g/dL LAB CHEMISTRY METHOD 03/24/2025 7:15 PM EDT [facility] Albumin 4.2 3.2 - 5.0 g/dL LAB CHEMISTRY METHOD 03/24/2025 7:15 PM EDT [facility] Total Bilirubin 0.5 0.0 - 1.4 mg/dL LAB CHEMISTRY METHOD 03/24/2025 7:15 PM EDT [facility] Bilirubin, Direct 0.2 0.0 - 0.3 mg/dL LAB CHEMISTRY METHOD 03/24/2025 7:15 PM EDT [facility] Bilirubin, Indirect 0.3 0.0 - 1.1 mg/dL LAB CHEMISTRY METHOD 03/24/2025 7:15 PM EDT [facility] ALT (SGPT) 26 10 - 60 unit/L LAB CHEMISTRY METHOD 03/24/2025 7:15 PM [facility] AST (SGOT) 25 10 - 42 unit/L LAB CHEMISTRY METHOD 03/24/2025 7:15 PM EDT [facility] Alkaline Phosphatase 52 42 - 121 unit/L LAB CHEMISTRY METHOD 03/24/2025 7:15 PM T [facility] Blood Venous blood specimen / Unknown Venipuncture / Unknown 03/24/2025 3:33 PM EDT 03/24/2025 3:33 PM EDT us Jina DOUGLAS LAB BLOOD ORDERABLES Final Res ult [facility] [address] [place] [address], [place] [phone] * (ABNORMAL) Basic metabolic panel (03/24/2025 3:33 PM EDT) Only the most recent of2 resultswithin the time period is included. Sodium 127(L) 133 - 145 mmol/L LAB CHEMISTRY METHOD 03/24/2025 7:03 PM EDT [facility] Potassium 3.9 3.5 - 5.5 mmol/L LAB CHEMISTRY METHOD 03/24/2025 7:03 PM [facility] Chloride 95(L) 96 - 110 mmol/L LAB CHEMISTRY METHOD 03/24/2025 7:03 PM [facility] CO2 24 21 - 32 mmol/L LAB CHEMISTRY METHOD 03/24/2025 7:03 PM [facility] Anion Gap 8 3 - 11 LAB CHEMISTRY METHOD 03/24/2025 7:03 PM [facility] Glucose 90 70 - 100 mg/dL LAB CHEMISTRY METHOD 03/24/2025 7:03 PM [facility] BUN 14 5 - 25 mg/dL LAB CHEMISTRY METHOD 03/24/2025 7:03 PM [facility] Creatinine 1.08 0.50 - 1.10 mg/dL LAB CHEMISTRY METHOD 03/24/2025 7:03 PM [facility] eGFR 55(L) >=60 mL/min/1. 73m2 LAB CHEMISTRY METHOD 03/24/2025 7:03 PM [facility] Comment:Calculation based on the Chronic Kidney Disease Epidemiology Collaboration (CKD-EPI) equation refit without adjustment for race. BUN/Creatinine Ratio 13.0 LAB CHEMISTRY METHOD 03/24/2025 7:03 PM [facility] Calcium 9.1 8.5 - 10.5 mg/dL LAB CHEMISTRY METHOD 03/24/2025 7:03 PM [facility] Blood Venous blood specimen / Unknown Venipuncture / Unknown 03/24/2025 3:33 PM EDT 03/24/2025 3:33 PM EDT us Jina DOUGLAS LAB BLOOD ORDERABLES Final Res ult [facility] [address] [place] [address], [place] [phone] * CBC auto differential (02/15/2025 10:42 AM EDT) [facility] WBC 5.8 4.8 - 10.8 K/mcL LAB HEMETOLOGY METHOD 02/15/2025 3:00 PM [facility] RBC 4.00 3.80 - 4.80 M/mcL LAB HEMETOLOGY METHOD 02/15/2025 3:00 PM [facility] Hemoglobin 12.5 11.5 - 16.0 g/dL LAB HEMETOLOGY METHOD 02/15/2025 3:00 PM [facility] Hematocrit 36.2 35.0 - 47.0 % LAB HEMETOLOGY METHOD 02/15/2025 3:00 PM [facility] MCV 89.8 79.0 - 98.0 FL LAB HEMETOLOGY METHOD 02/15/2025 3:00 PM [facility] MCH 31.0 27.0 - 32.0 pcg LAB HEMETOLOGY METHOD 02/15/2025 3:00 PM [facility] MCHC 34.5 32.0 - 37.0 g/dL LAB HEMETOLOGY METHOD 02/15/2025 3:00 PM [facility] RDW 11.6 11.0 - 15.0 % LAB HEMETOLOGY METHOD 02/15/2025 3:00 PM [facility] Platelets 331 130 - 400 K/mcL LAB HEMETOLOGY METHOD 02/15/2025 3:00 PM [facility] MPV 8.9 7.0 - 11.0 FL LAB HEMETOLOGY METHOD 02/15/2025 3:00 PM [facility] NRBC 0.0 <1.0 % LAB HEMETOLOGY METHOD 02/15/2025 3:00 PM [facility] NRBC Absolute 0.00 <0.10 K/mcL LAB HEMETOLOGY METHOD 02/15/2025 3:00 PM [facility] Neutrophils Relative 52.9 % LAB HEMETOLOGY METHOD 02/15/2025 3:00 PM [facility] Lymphocytes Relative 31.3 % LAB HEMETOLOGY METHOD 02/15/2025 3:00 PM [facility] Monocytes Relative 11.1 % LAB HEMETOLOGY METHOD 02/15/2025 3:00 PM [facility] Eosinophils Relative 3.5 % LAB HEMETOLOGY METHOD 02/15/2025 3:00 PM [facility] Basophils Relative 0.9 % LAB HEMETOLOGY METHOD 02/15/2025 3:00 PM [facility] Immature Granulocytes Relative 0.3 % LAB HEMETOLOGY METHOD 02/15/2025 3:00 PM [facility] Neutrophils Absolute 3.07 1.50 - 7.00 K/mcL LAB HEMETOLOGY METHOD 02/15/2025 3:00 PM [facility] Lymphocytes Absolute 1.81 1.00 - 5.00 K/mcL LAB HEMETOLOGY METHOD 02/15/2025 3:00 PM [facility] Monocytes Absolute 0.64 0.20 - 1.00 K/mcL LAB HEMETOLOGY METHOD 02/15/2025 3:00 PM [facility] Eosinophils Absolute 0.20 0.00 - 0.50 K/mcL LAB HEMETOLOGY METHOD 02/15/2025 3:00 PM [facility] Basophils Absolute 0.05 0.00 - 0.20 K/mcL LAB HEMETOLOGY METHOD 02/15/2025 3:00 PM [facility] Immature Granulocytes Absolute 0.02 0.00 - 0.03 K/mcL LAB HEMETOLOGY METHOD 02/15/2025 3:00 PM [facility] Blood Venous blood specimen / Unknown Venipuncture / Unknown 02/15/2025 10:42 AM EDT 02/15/2025 10:42 AM EDT Stevan Mosquera MD LAB BLOOD ORDERABLES Final Result [facility] [address] [place] [address], [place] [phone] * (ABNORMAL) Magnesium (02/15/2025 10:42 AM EDT) Magnesium 1.8(L) 1.9 - 2.6 mg/dL LAB CHEMISTRY METHOD 02/15/2025 3:15 PM EDT [facility] Blood Venous blood specimen / Unknown Venipuncture / Unknown 02/15/2025 10:42 AM EDT 02/15/2025 10:42 AM EDT Stevan Mosquera MD LAB BLOOD ORDERABLES Final Result Performing Organization Address City/[facility]/ZIP Co de Phone Number [facility] [address] [place] [address], [place] [phone] * Hemoglobin A1c (11/22/2024 11:36 AM EDT) Hemoglobin A1C 6.1 <6.5 % LAB CHEMISTRY METHOD 11/22/2024 9:53 PM EDT [facility] Mean Bld Glu Estim. 128 mg/dL LAB CHEMISTRY METHOD 11/22/2024 9:53 PM EDT [facility] Blood Venous blood specimen / Unknown Venipuncture / Unknown 11/22/2024 11:36 AM EDT 11/22/2024 11:36 AM EDT us Stevan Mosquera MD LAB BLOOD ORDERABLES Final Result [facility] [place] ([facility]) [facility] [address] [place] [address], * Diabetes Eye Exam (10/12/2023) Diabetes: Annual Retina Eye Exam abstracted us Historical Provider HEALTH MAINTENANCE Final Result * DXA BONE DENSITY STUDY 1+ SITS AXIAL SKEL (09/24/2023 3:21 PM EST) Anatomical Region Laterality Modality Bone Densitometr y 05/29/2023 11:1 9 AM EDT Narrative 09/24/2023 6:25 PM EST BONE DENSITY Lumbar Spine T-score is -0.6 (SD relative to 20-29 y/o adult) Z-score is +1.5 (SD relative to age matched peers) This is normal by criteria defined by the WHO. Left Hip T-score is -2.0 Z-score is -0.2 This is consistent with osteopenia by criteria defined by the WHO. Impression: Based on the World Health Organization criteria, Jalen Noyola should be classified as having osteopenia. This patient has a< 0.1% risk of major osteoporotic fracture and a< 0.1% risk of hip fracture over the next 10 years. (World Health Organization Fracture Risk Assessment) [facility] Department of Internal Medicine recommends using [...] Based on the World Health Organization criteria, Jalen Noyola shouldbe classified as having osteopenia. This patient has a< 0.1% risk of majorosteoporotic fracture and a< 0.1% risk of hip fracture over the next 10years. (World Health Organization Fracture Risk Assessment) [facility] Department of Internal Medicine recommendsusing National [...] of fracture risk by FRAX. [facility] IMHumberto DXA PROCEDURES Final Result * [...] breast in 1 year Procedure Note Dariusz Mokn MD - 03/28/2024 This is a summary [...] Ratio (08/12/2023) Urine Albumin Creatinine Ratio abstracted Result [facility] Historical Provider HEALTH MAINTENANCE Final Result * Diabetes Foot Exam (05/29/2023) Pathologist [facility] Diabetes: Annual Foot Exam abstracted Result [facility] Historical Provider HEALTH MAINTENANCE Final Result * Colonoscopy (10/13/2019) Pathologist [facility] Colonoscopy no interpretation , abstracted Anatomical Region Laterality Modality Other Result [facility] Historical Provider HEALTH MAINTENANCE Final Result * Hepatitis C Screening (05/28/2017) Pathologist [facility] Hepatitis C Screening abstracted Result [facility] Historical Provider HEALTH MAINTENANCE Final Result from Last 3 Months or Most Recently Relevant to Health Maintenance Insurance [employer] Advance Directives Documents on File Type Date Recorded 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
--- OUTSIDE RECORDS SUMMARY | 2025-04-03 15:00 | XMS_ITS ---
Author Name [facility] Organization Unknown History of Medication Use Medication Directions Dispensed Refills Start Date End Date [facility] albuterol sulfate HFA 90 mcg/actuation aerosol inhaler INHALE 2 PUFFS INTO THE LUNGS EVERY 4 HOURS NEEDED FOR COUGH FOR SHORTNESS OF BREATH OR WHEEZING active atorvastatin 20 mg tablet TAKE ONE TABLET BY MOUTH EVERY DAY active calcitriol 0.25 mcg capsule TAKE ONE CAPSULE BY MOUTH EVERY DAY active fluoxetine 10 mg capsule TAKE ONE CAPSULE BY MOUTH EVERY DAY active hydromorphone 2 mg tablet TAKE 1 TABLET BY MOUTH EVERY 4 HOURS NEEDED active hydroxyzine HCl 10 mg tablet TAKE ONE TABLET BY MOUTH TWICE A DAY NEEDED FOR ANXIETY active hydroxyzine pamoate 25 mg capsule TAKE ONE CAPSULE BY MOUTH THREE TIMES DAILY NEEDED FOR ANXIETY active Jantoven 1 mg tablet TAKE 5 TABLETS BY MOUTH AT DINNER DAILY UNLESS OTHERWISE INSTRUCTED BY PHYSICIAN'S OFFICE. active latanoprost 0.005 % eye drops INSTILL 1 DROP INTO EACH EYE AT BEDTIME. active methocarbamol 750 mg tablet TAKE ONE TABLET BY MOUTH EVERY 6 HOURS NEEDED FOR MUSCLE SPASMS. active metoprolol succinate ER 50 mg tablet,extended release 24 hr TAKE ONE TABLET BY MOUTH EVERY DAY active nitrofurantoin monohydrate/macrocryst als 100 mg capsule TAKE 1 CAPSULE BY MOUTH TWICE DAILY active omeprazole 20 mg capsule,delayed release TAKE ONE CAPSULE BY MOUTH EVERY DAY active Senna Plus 8.6 mg-50 mg tablet TAKE TWO TABLETS BY MOUTH EVERY EVENING active tolterodine ER 2 mg capsule,extended release 24 hr active Problems Problem Status Onset Date Problem Type Date of Resoluti on Source Pain of left knee joint active 2022-12-26 ProblemAct ENS_AONECT Encounters Encounter Type Encounter Reason Primary Diagnosis Location Date Ambulatory [facility] 12/26/2022 Ambulatory [facility] 12/26/2022 [facility] 12/24/2022 Ambulatory [facility] 12/09/2022 Care Team Organization Name Specialty Phone Email Start Date End Da te [facility] AC 03/29/2025 [facility] STEVAN MOSQUERA Primary Care 07/10/2022 03/28/2024 [facility] Stevan Mosquera Primary Care 06/17/202203/10
--- OUTSIDE RECORDS SUMMARY | 2025-04-03 15:00 | XMS_ITS | Clinical Summary ---
Author Organization [facility], Address [address] [place] [address] Phone Care Team Providers Care Primary School Principal Name Role Phone Kayla Mares DO Primary [...] 12/14/18 Glaucoma 11/12/2018 Overview (12/04/2020): Dr. 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 Salcedo Last Assessment & [...] 90 12/04/2020 10:50 AM EDT Temperature 36.1 C (97 F) 12/04/2020 10:50 AM EDT Respiratory Rate - [...] Colonoscopy 2002 Colorectal Cancer Screening: Sigmoidoscopy 2002 Diabetes: Ophthalmology Exam 12/04/2020 Diabetes: Pedal Pulse Checked 12/04/2020 Diabetes: Sensory Foot Exam 12/04/2020 Diabetes: Visual Foot Exam 12/04/2020 Diabetes: Hemoglobin A1C 02/21/2025 11/22/2024, 08/11 Influenza Vaccine (#1) 2025 3, 2022, 04/27/2021, Additional history exists Pneumococcal Vaccine: 50+ Years Completed 04/08/2019, 07/18/2015 Pneumococcal Vaccine: Peds (0 to 5 Years) and At-Risk Patients (6 to 49 Years) Discontinued 04/08/2019, 07/18/2015 Hepatitis B Vaccine Aged Out No longe r eligible based on patient's age to complete this topic Insurance [facility] Care Teams Primary School Principal Relationship Specialty Start Date End Date Kayla Mares DO PCP - General Internal Medicine 12/04/20
--- OUTSIDE RECORDS SUMMARY | 2025-04-03 15:00 | XMS_ITS | Clinical Summary ---
Author Organization [facility] Address [address] [place] [address] Care Team Providers Care Supervisor Backfilling Name Role Phone Stevan Mosquera MD Primary [...] 2024 11/19/2021, 06/06/2021, 11/12/2020 Influenza Vaccine (#1) 2025 2, 04/27/2021, 04/08/2019, Additional history exists RSV [...] age to complete this topic Care Teams Supervisor Backfilling Relationship Specialty Start Date End Date Stevan Mosquera MD [address] [place] [address] [phone] PCP - General Hospitalist Medicine 04/22/22
--- OUTSIDE RECORDS SUMMARY | 2025-04-03 15:00 | XMS_ITS | Patient Health Record ---
Author Organization [facility] Address [address] [place] [address] Care Team Providers Care Cell Liner Name Role Phone Rashi Parks DO Primary Care Provider Yair Brothers Unavailable [phone] Allergies Allergen (clinical drug ingredient) Drug/Non Drug Allergy documented on EMR Reaction Allergy Type Onset Date Status Neoprene Neoprene (uncoded) Unknown Allergy A ctive ibuprofen Advil Unknown Drug Allergy Active Aleve Unknown Drug Allergy Active sumatriptan Imitrex Unknown Drug Allergy Activ e Motrin Unknown Drug Allergy Active IVP dye Unknown Drug Allergy Active lisinopril Lisinopril Unknown Drug Allergy Activ e Reason For Referral No Information Medications Medication SIG (Take, Route, Frequency, Duration) Notes Start Date End Date Status ProAir HFA Active predniSONE 10 MG Orally Once a day Active Zinc 50 MG 1 tablet Orally Once a day Active Triamcinolone Acetonide 0.1 % External; Duration: 21 Activ e Vitamin C 1000 MG 1 tablet Orally Once a day Active Propranolol HCl ER 80 MG Oral; Duration: 90 Active Alendronate Sodium 70 MG Oral; Duration: 84 Active Prednicarbate Not-Ta michelle Trimethoprim 100 MG Oral; Duration: 30 Active diazePAM 5 MG Oral; Duration: 30 Active Calcium 600+D3 Activ e Xopenex Active Flovent HFA Active Ferrous Sulfate Acti ve Inderal LA 80 MG 1 capsule Orally Onc e a day Active hydrOXYzine Pamoate 25 MG Oral; Duration: 30 Active Levothyroxine Sodium 100 MCG Oral; Duration: 30 Active FLUoxetine HCl 40 MG Oral; Duration: 30 Active Lotrisone Active Losartan Potassium 25 MG Oral; Duration: 30 Active aspirin baby Active Nitrostat 0.4 MG Sublingual; Duration : 25 Active Magnesium Oxide Acti ve Prozac 40 mg 2 tab Oral Active Omeprazole 40 MG Oral; Duration: 30 Active Probiotic Orally Active Nystatin-Triamcinolone 158793-8.1 UNIT/GM-% 1 application to affected area Externally Twice a day Active Super D3 Complex Orally Act kirby Sulfamethoxazole-Trimetho prim 400-80 MG 2 tablets Orally Once a day Active oxyBUTYnin Chloride ER 10 MG 1 tablet Orally Once a day Active Visine 0.05 % 1 drop into affected eye as needed Ophthalmic every 6 hrs Active Social History Tobacco Use: Social History Observation Description Date Details (start date - stop date) Never Smoker NA - NA Tobacco Use/Smoking Question Answer Notes Are you a: nonsmoker Additional Findings: Tobacco Non-User Current no n-smoker Alcohol Screen Question Answer Notes Did you have a drink contain ing alcohol in the past year? Yes How often did you have a dri nk containing alcohol in the past year? 2 to 3 times a week (3 points) Points 3 Interpretation Positive Tobacco use other than smoking: Question Answer Notes Are you an other tobacco user? No Problems Problem Type SNOMED Code ICD Code Onset Dates Problem Status W/U Status Risk Notes Problem Pain in limb (73679140) Pain in unspecified foot (M79.673) Active confirmed Plan Of Treatment Pending Test Test Name Order Date X ray : Foot, left 3V 12/11/2015 Insurance Providers Payer Name Payer Address Payer Phone Subscriber Number Group Number Insured Name Patient Relationship to Insured Coverage Start Date Coverage End Date [employer] Preferred [address] [place] [address] [id number] Rose Noyola Self - patient is the insured Medical (General) History Medical History History ICD Code Anxiety disorder Arthritis asthma Depression Diabetic Headaches Migraines Heart disease Hypertension Osteoporosis Poor circulation Eczema Sciatica-left hip chronic sinusitis Measles Chicken pox Joint implants/screws Transfusions Surgical History Surgery Date(Month/Year) hand/wrist right knee replacement Laparoscopic restrictive proc adjustable gastirc band placement Total abdominal hysterectomy Vaccines prophylactic need against singl e disease
== END 2025-04-03 13:58 | disposition home or self-care (01) ==
LOC: HO.PMC 13:40
PROVIDERS: PCP Internal Medicine; Visit Provider Internal Medicine
DX: M25.562 Pain in left knee (principal)
CPT/HCPCS: 99213

== ENCOUNTER → 2025-04-03 13:39 | Outpatient (BNVA) | payer MEDICARE, SELFPAY | PROVIDERS: PCP Internal Medicine; Visit Provider Internal Medicine | DX: M25.562 Pain in left knee (principal); M15.9 Polyosteoarthritis, unspecified; N81.10 Cystocele, unspecified | CPT/HCPCS: 99212 ==

== ENCOUNTER 2025-05-18 06:17 | Outpatient (REF) | payer MEDICARE, SELFPAY ==
--- NOTE | ~2025-05-18 | FL_ITS ---
EXAMINATION: FL GUIDANCE ONLY HISTORY: M25.562 - Pain in left knee COMPARISON: None available. TECHNIQUE: Fluoroscopy time: 0.3 minutes. Cumulative Dose: 1.80 mGy. DAP: 0.0313 mGycm2 Images: 3. FINDINGS: Fluoroscopic spot films of the left knee demonstrate multiple needles adjacent to the distal femur and proximal tibia. FL/FL guidance in treatment room IMPRESSION: Fluoroscopy during procedure. Please see procedure report for additional information. Electronically signed by: Peter Vang MD 05/18/2025 02:59 PM EDT
== END 2025-05-18 06:18 | disposition home or self-care (01) ==
LOC: CF 06:17
PROVIDERS: Visit Provider Internal Medicine
DX: M25.561 Pain in right knee (principal); M25.562 Pain in left knee; G89.29 Other chronic pain; Z79.82 Long term (current) use of aspirin; Z79.899 Other long term (current) drug therapy
CPT/HCPCS: 64624; J2003; J2795

== ENCOUNTER 2025-05-18 10:56 | Outpatient (AMB) | payer MEDICARE, SELFPAY ==
--- NOTE | 2025-05-18 11:10 | MHC.OFFVIS ---
Vital Signs 05/18/25 11:11 Height 4 ft 11 in Weight 182 lb BMI 36.8 BP 119/71 Blood Pressure Location Rt brachial Position Sitting Pulse 69 Pulse Source Pulse Oximeter Pulse Oximetry (%) 99 Oxygen Delivery Method Room Air Intake Visit Reasons: Left genicular RFA/ valium &oxy Hot Baller Required: No Sewer And Cutter Finger Buff Material: Sewer And Cutter Finger Buff Material Present Accompanied by: Employee Allergies Iodinated Contrast Media (IV CONTRAST) Allergy (Severe, Verified 05/18/25 11:11) ANAPHYLAXIS sumatriptan (From IMITREX) Allergy (Severe, Verified 05/18/25 11:11) PT STATES CAUSED NE adhesive tape (ADHESIVE TAPE) Allergy (Intermediate, Verified 05/18/25 11:11) SKIN BLISTERS lisinopril (LISINOPRIL) Allergy (Mild, Verified 05/18/25 11:11) COUGH ciprofloxacin (CIPROFLOXACIN) Allergy (Unknown, Verified 05/18/25 11:11) RASH AND ITCHING 1st Relief [place] Allergy (Unknown, Uncoded 05/18/25 11:11) unknown Iodinated I 131 Albumin Allergy (Unknown, Uncoded 05/18/25 11:11) unknown Medication List - Last Reconciled 05/18/25 by Rosey Del Rio, CAD MANAGER albuterol sulfate 90 mcg/actuation 2 puffs inhalation Q4H PRN amlodipine 5 mg PO DAILY ascorbic acid (vitamin C) 1 g PO Q6H aspirin (Adult Low Dose Aspirin) 81 mg PO DAILY atorvastatin 20 mg PO DAILY blood sugar diagnostic (VIA Pharmaceuticalsuch Verio test strips) As directed bupropion HCl 125 mg PO QAM calcitriol 0.25 mcg PO DAILY cholecalciferol (vitamin D3) 25 mcg PO DAILY diazepam (Valium) 5 mg PO ONCE PRN furosemide 20 mg PO DAILY PRN gabapentin mg PO BID hydroxyzine HCl 25 mg PO TID PRN lancets (nviteTouch Delica Plus Lancet) As directed latanoprost 0.005% 1 drp ophthalmic (eye) BEDTIME levothyroxine mcg PO nystatin topical QID PRN omeprazole 20 mg PO DAILY oxycodone 10 mg PO ONCE PRN oxycodone 2.5 mg PO BID PRN trazodone 100 mg PO BEDTIME vibegron (Gemtesa) 75 mg PO DAILY HPI HPI Left genicular RFA/ valium &oxy: Details: Patient presents for scheduled procedure. Denies any recent cough, cold, infection, fever or other significant changes in medical history since last office visit. [facility] Medical History Lumbar radiculopathy Surgical History Status post replacement of right shoulder joint Social History Alcohol intake: never Patient Tobacco Use Status: Never used Tobacco Current occupational status: employed and retired Physical Exam Vital Signs: Last Vital Signs Pulse 69 05/18/25 11:11 BP 119/71 05/18/25 11:11 Pulse Ox 99 05/18/25 11:11 Oxygen Delivery Method Room Air 05/18/25 11:11 BMI result Body Mass Index 36.8 Office Procedures Details: Genicular Nerve RFL - fluoroscopic guided - Superior medial, superior lateral, and inferior medial genicular nerve radiofrequency lesioning After obtaining written consent, pre-procedure blood pressure and heart rate were stable and recorded in the nursing record. Standard monitors were applied. The patient was placed supine on the fluoroscopy table. The area overlying the peripheral nerves was widely prepped with chloraprep, allowed to dry and sterilely draped. Using fluoroscopy, the appropriate landmarks were identified. The skin overlying the target was anesthetized with 0.5% lidocaine. A 18 gauge 100mm radiofrequency needle was advanced under fluoroscopic guidance to the appropriate landmark of each peripheral nerve. Verification using lateral and AP views. Aspiration was negative for heme and synovial fluid. Impedences were verified under 600 ohms.Motor testing (2 Hz) confirmed needle placement at each site within the appropriate voltage thresholds. Each site was injected with 0.5 ml 2% preservative-free lidocaine. Radiofrequency lesioning was performed for 100 seconds at 80 deg Celcius. Each site was then injected with 1 ml 0.5% preservative-free ropivacaine. The needles were removed, skin cleansed and a sterile bandage was applied. The patient tolerated the procedure well and no complications were encountered. Following the procedure the patient's vital signs were stable. The patient was discharged home in good condition with post-procedural instructions. Time Out: Immediately prior to the procedure, the following was verbally confirmed that there is a signed consent form and that the correct patient, planned procedure, site and side are consistent with documentation and that necessary equipment and/or blood products are available prior to the start of the case. Complications: none EBL: <5 cc Additional procedure code (CPT) needed Office Meds lidocaine (PF) 10 mg/mL (1 %) injection solution Performing Provider: Quan Rojas MD Performing Location: [facility] Administered by: Quan Rojas MD on 05/18/25 12:34 Dose Route Admin Location Dispensed Lot Number Expiration Date NDC Billboard Erector Helper 5 mL subcut 5 mL Total Dispensed Waste 5 mL 0 % Assessment & Plan Assessment & Plan (1) Chronic pain of both knees: Code(s): M25.561 - Pain in right knee; M25.562 - Pain in left knee; G89.29 - Other chronic pain Category: Medical Plan Patient is status post radiofrequency ablation of the left knee genicular nerves. Patient tolerated procedure well and was discharged home in stable condition with discharge instructions. All questions were answered. We will follow-up via telephone or in clinic to assess response to therapy. A follow-up appointment was made during today's visit. Orders: Orders AMB RFA Radiofrequency Ablation Pain Management Today Quan Rojas MD G89.29 - Other chronic pain, M25.561 - Pain in right knee, M25.562 - Pain in left knee FL guidance in treatment room Today Anjelica Alston APRN, CARSON M25.562 - Pain in left knee Medications: New oxycodone take 30 minutes prior to arrival for procedure 10 mg PO ONCE PRN 1 tab 0RF pain Anjelica Alston APRN, CARSON diazepam (Valium) please take 30minutes prior to arrival for procedure 5 mg PO ONCE PRN 1 tab 0RF sleep Anjelica Alston APRN, LENS DOTTER Coding Level of Care Code Procedure Only Diagnoses Chronic pain of both knees M25.561; M25.562; G89.29
[2025-05-18 11:11] VITALS: BP 119/71; PULSE 69; O2SAT 99; BMI 36.8
== END 2025-05-18 11:48 | disposition home or self-care (01) ==
LOC: HO.PMCPRC 10:56
PROVIDERS: PCP Internal Medicine; Visit Provider Internal Medicine
DX: M25.561 Pain in right knee (principal); M25.562 Pain in left knee; G89.29 Other chronic pain
CPT/HCPCS: 64624

== ENCOUNTER 2025-06-26 10:15 | Outpatient (AMB) | payer MEDICARE, SELFPAY ==
--- NOTE | 2025-06-26 10:18 | MHC.OFFVIS ---
Vital Signs 06/26/25 10:20 Height 4 ft 11 in Weight 185 lb BMI 37.4 BP 108/55 L Blood Pressure Location Lt brachial Position Sitting Respiration 16 Pulse 81 Pulse Source Pulse Oximeter Pulse Oximetry (%) 96 Oxygen Delivery Method Room Air Intake Visit Reasons: s/p Left genicular RFA Career Specialist Required: No Allergies Iodinated Contrast Media (IV CONTRAST) Allergy (Severe, Verified 06/26/25 10:21) ANAPHYLAXIS sumatriptan (From IMITREX) Allergy (Severe, Verified 06/26/25 10:21) PT STATES CAUSED DE adhesive tape (ADHESIVE TAPE) Allergy (Intermediate, Verified 06/26/25 10:21) SKIN BLISTERS lisinopril (LISINOPRIL) Allergy (Mild, Verified 06/26/25 10:21) COUGH ciprofloxacin (CIPROFLOXACIN) Allergy (Unknown, Verified 06/26/25 10:21) RASH AND ITCHING 1[employer] Relief [place] Allergy (Unknown, Uncoded 06/26/25 10:21) unknown Iodinated I 131 Albumin Allergy (Unknown, Uncoded 06/26/25 10:21) unknown Medication List - Last Reconciled 06/26/25 by Pilar Barron LPN albuterol sulfate 90 mcg/actuation 2 puffs inhalation Q4H PRN amlodipine 5 mg PO DAILY ascorbic acid (vitamin C) 1 g PO Q6H aspirin (Adult Low Dose Aspirin) 81 mg PO DAILY atorvastatin 20 mg PO DAILY blood sugar diagnostic (Vidcasteruch Verio test strips) As directed calcitriol 0.25 mcg PO DAILY cholecalciferol (vitamin D3) 25 mcg PO DAILY duloxetine 20 mg PO BID furosemide 20 mg PO DAILY PRN gabapentin mg PO BID hydroxyzine HCl 25 mg PO TID PRN lancets ([employer] Delica Plus Lancet) As directed latanoprost 0.005% 1 drp ophthalmic (eye) BEDTIME levothyroxine mcg PO nystatin topical QID PRN omeprazole 20 mg PO DAILY oxycodone 2.5 mg PO BID PRN trazodone 100 mg PO BEDTIME vibegron (Gemtesa) 75 mg PO DAILY HPI HPI s/p Left genicular RFA: Details: History of Present Illness The patient is a 70-year-old female presenting for follow-up after radiofrequency ablation of the genicular nerves on the left side. She reports significant improvement, with more than 90% relief from her previous genicular nerve pain, and is very pleased with the results. There are no current complaints regarding her knee. The patient inquired about the potential need for future interventions, and it was explained that while the procedure may need to be repeated, it is not currently necessary. Her previous knee replacement is functioning well without issues. Pain Description - Relief: More than 90% improvement in pain post-procedure - Location: Left knee Physical Exam - Musculoskeletal: Examination of the left knee showed no abnormalities, indicating successful intervention. Pain Management - Analgesia: Patient reports more than 90% relief from pain post-radiofrequency ablation. - Activities of Daily Living: No current limitations reported due to knee pain. [facility] Medical History Lumbar radiculopathy Surgical History Status post replacement of right shoulder joint Social History Alcohol intake: never Patient Tobacco Use Status: Never used Tobacco Current occupational status: employed and retired Physical Exam Vital Signs: Last Vital Signs Pulse 81 06/26/25 10:20 Resp 16 06/26/25 10:20 BP 108/55 L 06/26/25 10:20 Pulse Ox 96 06/26/25 10:20 Oxygen Delivery Method Room Air 06/26/25 10:20 BMI result Body Mass Index 37.4 Assessment & Plan Assessment & Plan (1) Left knee pain: Code(s): M25.562 - Pain in left knee Category: Medical Plan Plan Patient was informed and verbally consented to the use of an ambient scribe for clinic note documentation during this visit. 1. Genicular Nerve Pain - Continue to monitor the patient's condition and follow up as needed if pain returns. - Discussed the possibility of repeating the radiofrequency ablation if necessary in the future. Discussion Notes I discussed with the patient that while the radiofrequency ablation has provided significant relief, there is a possibility that the procedure may need to be repeated in the future. We will continue to monitor her condition and she should follow up if her pain returns. Patient Instructions - Monitor your knee for any return of pain and report back if it occurs. - Follow up as needed if pain returns. Coding Level of Care Code Est Pt Level 3 (42058) Diagnoses Left knee pain M25.562
[2025-06-26 10:20] VITALS: BP 108/55; PULSE 81; RESP 16; O2SAT 96; BMI 37.4
--- OUTSIDE RECORDS SUMMARY | 2025-06-26 21:18 | XMS_ITS | Data Portability ---
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 I did offer [...] findings at length with the patient today. We discussed the nature and etiology of this problem along with current treatment options. We discussed the expected course and outcomes and what to expect. We also discussed risks and benefits. All of their questions were answered today, and there was exhibited understanding and comprehension of all that was discussed. Time Spent: 10 minutes were spent reviewing previous imaging and charting. 10 minutes were spent obtaining patient history. 5 minutes were spent on physical exam. 5minutes were spent explaining diagnosis and assessment. Today's [...] Name and Address Organization Details Recorded Time Arthritis of right hip 06169827911 02112 Active 2016 Arthritis of right hip Not Available [facility] 5 00:36:49 Surgical follow-up 272782231 Active 2017 Postop check Not Available [facility] 5 00:36:50 Arthritis of right glenohume ral joint 84269571371 97014 Active 2018 Arthritis of right glenohume ral joint Not Available [facility] 5 00:36:50 Pain of left knee joint 31964683559 4107 Active 2022 PARISH BELL PA-C [address] [facility] [address], [address] [address], [place], [id number] , [place] [facility] 3 13:37:02 Problem Notes None recorded. Medical Equipment None Reported. Allergies Allergen ID Allergen Name Allergen Category Reaction Reaction Severity Criticality Documentation Date Start Date Code Code System Note Provider Name and Address Organization Details Recorded Time 79438 Iodinated contrast media (substanc e) medicatio n Not available Not available Not available 05/02/20252016 45741 2004 SNOMED Not Available [facility] 5 01:21:47 61573 sumatript an medicatio n Not available Not available Not available 05/02/20252016 70424 RxNorm Not Available [facility] 5 01:21:48 70214 lisinopri l medicatio n Not available Not available Not available 05/02/20252016 04376 RxNorm Not Available [facility] 5 01:21:48 38289 iodine medicatio n Not available Not available Not available 05/02/20252016 5933 RxNorm Not Available [facility] 5 01:21:48 50334 ibuprofen medicatio n Not available Not available Not available 05/02/20252016 5640 RxNorm Not Available [facility] 5 01:21:48 13140 sulfameth oxazole / trimethop rim medicatio n Not available Not available Not available 05/02/20252019 27879 RxNorm Not Available [facility] 5 01:21:48 Medications Name Sig Start Date Stop Date Status Note LastModified by Organization Details LastModified Time tolterodine ER 2 mg capsule,ext ended release 24 hr active Not Available Not Available Not Available latanoprost 0.005 % eye drops INSTILL 1 DROP INTO EACH EYE AT BEDTIME. active Not Available Not Available No t Available methocarbam ol 500 mg tablet Take 500 mg by mouth 4 (four) times a day. active Not Available Not Available No t Available ascorbic acid (vitamin C) 1,000 mg tablet Take 1,000 mg by mouth daily. active Not Available Not Available No t Available prednisone 10 mg tablet Take by mouth every morning with breakfast . active Not Available Not Available No t Available propranolol 80 mg tablet Take 80 mg by mouth 3 (three) times a day. active Not Available Not Available No t Available atorvastati n 20 mg tablet TAKE ONE TABLET BY MOUTH EVERY DAY active Not Available Not Available No t Available ipratropium 0.5 mg-albutero l 3 mg (2.5 mg base)/3 mL nebulizatio n soln Inhale 3 mL into the lungs. active Not Available Not Available No t Available cefpodoxime 100 mg tablet TAKE ONE TABLET BY MOUTH TWICE A DAY FOR 10 DAYS active Not Available Not Available No t Available metoprolol succinate ER 50 mg tablet,exte nded release 24 hr TAKE ONE TABLET BY MOUTH EVERY DAY active Not Available Not Available No t Available tolterodine ER 4 mg capsule,ext ended release 24 hr TAKE ONE CAPSULE BY MOUTH EVERY DAY active Not Available Not Available No t Available sulfamethox azole 800 mg-trimetho prim 160 mg tablet Take 1 tablet (160 mg of trimethop rim total) by mouth 2 (two) times a day for 7 days. 02/24 completed Not Available Not Available Not Available omeprazole 40 mg capsule,del ayed release Take 40 mg by mouth daily. active Not Available Not Available No t Available aspirin 81 mg tablet,karel yed release Take 81 mg by mouth daily. active Not Available Not Available No t Available amoxicillin 500 mg tablet Take 4 tabs 1 hour prior to dental appointme nt 2017 active Not Available Not Available Not Avai lable levothyroxi ne 75 mcg tablet TAKE ONE TABLET BY MOUTH EVERY DAY active Not Available Not Available No t Available levothyroxi ne 100 mcg tablet Take 100 mcg by mouth every morning on an empty stomach. active Not Available Not Available No t Available hydromorpho ne 2 mg tablet TAKE 1 TABLET BY MOUTH EVERY 4 HOURS NEEDED active Not Available Not Available No t Available methocarbam ol 750 mg tablet TAKE ONE TABLET BY MOUTH EVERY 6 HOURS NEEDED FOR MUSCLE SPASMS. active Not Available Not Available No t Available OneTouch Ultra Test strips USE TO CHECK BLOOD SUGAR ONCE DAILY active Not Available Not Available No t Available methylpredn isolone acetate 40 mg/mL suspension for injection 10/03 completed Not Available Not Available Not Available ferrous sulfate 325 mg (65 mg iron) tablet Take 325 mg by mouth every morning with breakfast . active Not Available Not Available No t Available nitrofurant oin macrocrysta l 100 mg capsule Take 100 mg by mouth 4 (four) times a day. active Not Available Not Available No t Available clotrimazol e-betametha sone 1 %-0.05 % topical cream Apply topically 2 (two) times a day. active Not Available Not Available No t Available fluoxetine 10 mg capsule Take 10 mg by mouth daily. active Not Available Not Available No t Available nitroglycer in 0.[address] 0.4 mg under the tongue every 5 (five) minutes as needed for chest pain. active Not Available Not Available No t Available betamethaso ne dipropionat e 0.05 % topical cream Apply topically 2 (two) times a day. active Not Available Not Available No t Available gabapentin 300 mg capsule Take 300 mg by mouth 3 (three) times a day. active Not Available Not Available No t Available omeprazole 20 mg capsule,del ayed release TAKE ONE CAPSULE BY MOUTH EVERY DAY active Not Available Not Available No t Available camphor-men thol 0.5 %-0.5 % lotion Apply topically as needed for itching. active Not Available Not Available No t Available hydroxyzine HCl 25 mg tablet Take by mouth. active Not Available Not Available No t Available mupirocin 2 % topical ointment Apply topically 3 (three) times a day. active Not Available Not Available No t Available gabapentin 100 mg capsule TAKE ONE CAPSULE BY MOUTH AT BEDTIME active Not Available Not Available No t Available albuterol sulfate HFA 90 mcg/actuati on aerosol inhaler Inhale 2 puffs into the lungs every 6 (six) hours as needed for wheezing. active Not Available Not Available No t Available hydroxyzine HCl 10 mg tablet TAKE ONE TABLET BY MOUTH TWICE A DAY NEEDED FOR ANXIETY active Not Available Not Available No t Available fluoxetine 20 mg capsule TAKE 1 CAPSULE BY MOUTH DAILY DIRECTED active Not Available Not Available No t Available doxycycline hyclate 100 mg tablet TAKE 1 TABLET TWICE DAILY 2017 active Not Available Not Available Not Avai lable calcitriol 0.25 mcg capsule TAKE ONE CAPSULE BY MOUTH EVERY DAY active Not Available Not Available No t Available fluticasone propionate 110 mcg/actuati on HFA aerosol inhaler Inhale 1 puff into the lungs 2 (two) times a day. active Not Available Not Available No t Available diazepam 5 mg tablet Take 5 mg by mouth every 6 (six) hours as needed for anxiety. active Not Available Not Available No t Available amoxicillin 875 mg-potassiu m clavulanate 125 mg tablet TAKE 1 TABLET BY MOUTH TWICE DAILY FOR 7 DAYS active Not Available Not Available No t Available oxycodone 5 mg tablet TAKE ONE TABLET BY MOUTH EVERY DAY NEEDED FOR SEVERE PAIN active Not Available Not Available No t Available hydroxyzine pamoate 25 mg capsule TAKE ONE CAPSULE BY MOUTH THREE TIMES DAILY NEEDED FOR ANXIETY active Not Available Not Available No t Available enoxaparin 40 mg/0.4 mL subcutaneou s syringe INJECT 40MG 0.4ML) SUBCUTANE OUSLY ONCE DAILY UNTIL INR IS 2 OR [...] BY MOUTH AT DINNER DAILY UNLESS OTHERWISE INSTRUCTE D BY PHYSICIAN 'S OFFICE. active Not Available Not Available No t Available nitrofurant oin monohydrate /macrocryst als 100 mg capsule TAKE 1 CAPSULE BY MOUTH TWICE DAILY active Not Available Not Available No t Available Nyamyc 100,000 unit/gram topical powder APPLY ON RASH FOUR TIMES A DAY FOR 1 WEEK NEEDED. active Not Available Not Available No t Available losartan 100 mg-hydrochl orothiazide 12.5 mg tablet Take 1 tablet by mouth daily. active Not Available Not Available No t Available lidocaine (PF) 10 mg/mL (1 %) injection solution 10/03 completed Not Available Not Available Not Available cholecalcif adela (vitamin D3) 25 mcg (1,000 unit) tablet Take 1,000 Units by mouth daily. active Not Available Not Available No t Available diclofenac 1 % topical gel Place onto the skin. active Not Available Not Available No t Available triamcinolo ne acetonide 0.1 %-emollient comb.no.45 topical cream Apply topically 2 (two) times a day. active Not Available Not Available No t Available naloxone 4 mg/actuatio n nasal spray spray or apply 1 mL inside Nose once as needed for up to 1 dose. 2017 active Not Available Not Available Not Avai lable Vitals Date Recorded Body height Body mass index (BMI) Body weight Provider Name and Address Organization Details Last Updated DateTime 12/26/2022 152.4 cm 40.2 kg/m2 24567.[address] [place] [facility] 12/26/2022 13:24:38 Social History None recorded. Functional Status Question Answer Note LastModified by Organizat ion Details LastModified Time Do you use any illicit or recreational drugs? No [email or web address] Information not available 12/26/2022 Do you or have you ever used any other forms of tobacco or nicotine? No [email or web address] Information not available 12/26/2022 What is your level of alcohol consumption? Occasional [email or web address] Information not available 12/26/2022 Mental Status None recorded. Family History Nothing Reported. Medical History Condition Response Diabetes Y Heart Attack (OK) Y Hypertension Y Asthma Y Kidney Disease Y Gynecological HistoryNo gynecological history recorded. Obstetrics History GPAL:G 0 P 0 0 0 0 Immunizations Vaccine Type Date Status Note Provider Nam e and Address Organization Details Recorded Time COVID-19, mRNA, LNP-S, PF, 30 mcg/0.3 mL dose 06/06/2021 completed Not Available [facility] 5 06:17:30 COVID-19, mRNA, LNP-S, PF, 30 mcg/0.3 mL dose 11/19/2021 completed Not Available [facility] 5 06:17:30 Past Encounters Encounter ID Performer Location Encounter Start Date Encounter Closed Date Diagnosis/Indication Diagnosis SNOMED-CT Code Diagnosis ICD10 Code Diagnosis IMO Codes Diagnosis Note [id number] KADEN SUNG [address] [address] 12/26/2022 13:12:57 12/26/2022 13:34:49 Pain of left knee joint [id number] 22781 M25.562 Health Concerns Section Related Observation LastModified by Organization Detai ls LastModified Time None Recorded Concern Status LastModified by Organization Details LastModified Time None Recorded Advance Directives Directive None Recorded Payers Insurance Date Sequence Insurance Name Policy Number Policy Clifford Covered Member ID Clifford Member ID Guarantor Name 12/29/2022 1 [facility] - MEDICARE PREFERRED (MEDICARE REPLACEMENT HMO) [id number] Rose Noyola [id number] Rose Noyola Notes Date Note Type [...] the replaced knee joint. PARISH BELL PA-C [address] [place] [address], [id number], [place] - [facility] 12/26/2022 13:37:21 OBGyn Episode No OBEpisode recorded.
== END 2025-06-26 10:48 | disposition home or self-care (01) ==
LOC: HO.PMC 10:16
PROVIDERS: PCP Internal Medicine; Visit Provider Internal Medicine
DX: M25.562 Pain in left knee (principal)
CPT/HCPCS: 99213

== ENCOUNTER → 2025-06-26 10:15 | Outpatient (BNVA) | payer MEDICARE, SELFPAY | PROVIDERS: PCP Internal Medicine; Visit Provider Internal Medicine | DX: G51.1 Geniculate ganglionitis (principal); M25.562 Pain in left knee | CPT/HCPCS: 99212 ==